=== PATIENT | male | born 1960 | race Caucasian/White ===

== ENCOUNTER → 2017-03-18 | Outpatient (CLI) | payer MEDICAID, SELFPAY | PROVIDERS: Visit Provider Family Medicine | DX: E11.9 Type 2 diabetes mellitus without complications (principal); I10 Essential (primary) hypertension; E78.5 Hyperlipidemia, unspecified | CPT/HCPCS: 36415; 80053; 80061; 83036 ==

== ENCOUNTER → 2017-07-14 08:04 | Outpatient (CLI) | payer MEDICAID, SELFPAY ==
[2017-07-14 12:47] LABS: Blood Urea Nitrogen 14 mg/dL (7-18); Creatinine,Serum 1.02 mg/dL (0.70-1.30); Estimated Glomerular Filt Rate 76 ml/min (>60); GFR (African American) 92 ML/MIN (>60)
== END ==
PROVIDERS: Visit Provider Otolaryngology
DX: R51 Headache (principal); J32.9 Chronic sinusitis, unspecified
CPT/HCPCS: 36415; 82565; 84520

== ENCOUNTER → 2017-07-15 12:40 | Outpatient (CLI) | payer MEDICAID, SELFPAY ==
--- NOTE | 2017-07-15 12:48 | CT_ITS ---
CT head/brain wo/w con HISTORY: Severe headache6 ITS.REASON: headache ORDERING PHYSICIAN: Ajay Bates MD PATIENT AGE: 56 years COMPARISON: TECHNIQUE: Axial images obtained without contrast. Brain and bone windows reviewed. All CT scans at the facility use one or more dose reduction, viz: automated exposure control; ma/kV adjustment per patient size (including targeted exams where dose is matched to indication; i.e. head); or iterative reconstruction technique. FINDINGS: No midline shift, mass effect, intracranial hemorrhage, hydrocephalus, or extra-axial fluid collection is evident. The calvarium has an unremarkable appearance. No mastoid effusion. No sinus air-fluid levels.. IMPRESSION: Negative CT head without contrast. No acute finding
--- NOTE | 2017-07-15 13:29 | HMH.ITSHM ---
LISINOPRIL,GLIMPERIDE,ATORVASTRATIN JENTAUDEO OMEPRAZOLE
== END ==
PROVIDERS: PCP Family Medicine; Visit Provider Otolaryngology
DX: R51 Headache (principal)
CPT/HCPCS: 70470; Q9967

== ENCOUNTER → 2017-08-18 07:18 | Outpatient (CLI) | payer MEDICAID, SELFPAY ==
[2017-08-18 08:36] LABS: Alanine Aminotransferase 61 U/L (12-78); Albumin Level 3.8 gm/dL (3.4-5.0); Albumin/Globulin Ratio 1.1 (1.1-1.8); Alkaline Phosphatase 75 U/L (46-116); Anion Gap 12.9 mEq/L (5-15); Aspartate Amino Transferase 30 U/L (15-37); Bilirubin,Total 0.3 mg/dL (0.2-1.0); Blood Urea Nitrogen 17 mg/dL (7-18); Calcium 9.4 mg/dL (8.5-10.1); Carbon Dioxide 27 mmol/L (21.0-32.0); Chloride 105 mmol/L (98-107); Chol/HDL Ratio 4.2 (1-3.5); Cholesterol 138 mg/dL (140-200); Creatinine,Serum 1.07 mg/dL (0.70-1.30); Estimated Glomerular Filt Rate 72 ml/min (>60); GFR (African American) 87 ML/MIN (>60); Globulin 3.5 gm/dl (1.3-3.2); Glucose 144 mg/dL (74-106); HDL Cholesterol 33 mg/dL (27-67); LDL Cholesterol 79 mg/dL (0-130); Potassium 4.9 mmoL/L (3.5-5.1); Sodium 140 mmol/L (136-145); Total Protein,Serum 7.3 gm/dL (6.4-8.2); Triglycerides 128 mg/dL (30-200); VLDL Cholesterol 26 mg/dL (0-40)
== END ==
PROVIDERS: Visit Provider Family Medicine
DX: I10 Essential (primary) hypertension (principal); E11.9 Type 2 diabetes mellitus without complications
CPT/HCPCS: 36415; 80053; 80061; 83036

== ENCOUNTER → 2017-09-24 10:48 | Outpatient (CLI) | payer MEDICAID, SELFPAY ==
[2017-09-24 11:07] LABS: Basophils # 0.1 K/mm3 (0-0.2); Basophils % 0.5 % (0.1-2.0); Eosinophils # 0.4 K/mm3 (0.0-0.4); Eosinophils % 2.6 % (0.1-12.0); Hematocrit 47.7 % (42.0-52.0); Hemoglobin 15.2 g/dL (14.1-18.0); Lymphocytes # 2.7 K/mm3 (0.7-4.5); Lymphocytes % 20.1 K/mm3 (10-50); Mean Corpuscular HGB Conc 31.8 g/dL (31.8-35.4); Mean Corpuscular Hemoglobin 27.3 pg (27.0-31.2); Mean Corpuscular Volume 85.7 fl (80-94); Mean Platelet Volume 7.6 fl (7.4-10.4); Monocytes # 0.8 K/mm3 (0.1-1.0); Neutrophils # 9.6 K/mm3 (1.8-7.8); Neutrophils % 70.8 % (37.0-80.0); Platelet Count 368 K/mm3 (142-424); Red Blood Count 5.56 M/mm3 (4.60-6.20); Red Cell Distribution Width 13.9 % (11.5-17.5); White Blood Count 13.6 K/mm3 (4.8-10.8)
[2017-09-24 13:15] LABS: Blood Urea Nitrogen 19 mg/dL (7-18); Calcium 9.5 mg/dL (8.5-10.1); Carbon Dioxide 23 mmol/L (21.0-32.0); Chloride 102 mmol/L (98-107); Creatinine,Serum 1.06 mg/dL (0.70-1.30); Estimated Glomerular Filt Rate 73 ml/min (>60); GFR (African American) 88 ML/MIN (>60); Glucose 191 mg/dL (74-106); Sodium 137 mmol/L (136-145)
== END ==
PROVIDERS: PCP Family Medicine; Visit Provider Surgery
DX: Z01.818 Encounter for other preprocedural examination (principal); R10.30 Lower abdominal pain, unspecified; K62.5 Hemorrhage of anus and rectum; Z86.010 Personal history of colon polyps
CPT/HCPCS: 36415; 80048; 85025

== ENCOUNTER → 2017-10-08 09:09 | Outpatient (CLI) | payer MEDICAID, SELFPAY ==
[2017-10-08 09:28] LABS: Blood Urea Nitrogen 16 mg/dL (7-18); Creatinine,Serum 1.13 mg/dL (0.70-1.30); Estimated Glomerular Filt Rate 67 ml/min (>60); GFR (African American) 81 ML/MIN (>60)
--- NOTE | 2017-10-08 09:49 | CT_ITS ---
CT abdomen pelvis w con CLINICAL INDICATION: Lower abdominal pain, history of diverticulitis ITS.REASON: lower abdomoinal pain ORDERING PHYSICIAN: Lex Chen MD PATIENT AGE: 57 years COMPARISON: 11/22/2016 TECHNIQUE: Axial images obtained with sagittal and coronal reformats. All CT scans at the facility use one or more dose reduction, viz: automated exposure control; ma/kV adjustment per patient size (including targeted exams where dose is matched to indication; i.e. head); or iterative reconstruction technique. PROCEDURE: Oral Contrast: Redicat IV Contrast: 75 mL's of Isovue-370. FINDINGS: Small hiatal hernia. The liver, spleen, adrenal glands, gallbladder, pancreas, and kidneys have an unremarkable appearance. Unremarkable appendix. No intestinal obstruction or free air. There is diverticulosis of the entire colon with greatest involvement in the distal descending colon and sigmoid colon. No evidence of diverticulitis. No pelvic mass abnormal fluid collection or focal inflammatory change. No abdominal wall hernias. No acute bony anomalies. IMPRESSION: 1. No acute abdominal or pelvic findings. 2. Diverticulosis coli. No evidence of diverticulitis
--- NOTE | 2017-10-08 10:42 | HMH.ITSHM ---
LISINOPRIL,ATORVASTATIN,GLIMIPERIDE,OMEPRAZOLE,JENTA
== END ==
PROVIDERS: PCP Family Medicine; Visit Provider Surgery
DX: Z01.818 Encounter for other preprocedural examination (principal); R10.30 Lower abdominal pain, unspecified
CPT/HCPCS: 36415; 74177; 82565; 84520; Q9967

== ENCOUNTER → 2018-10-07 14:31 | Outpatient (CLI) | payer MEDICAID, SELFPAY ==
[2018-10-07 14:34] LABS: Microscopic, Urine URINE MICROSCOPIC (MICROSCOPIC)
[2018-10-07 14:51] LABS: Basophils # 0.1 K/mm3 (0-0.2); Basophils % 0.6 % (0.1-2.0); Eosinophils # 0.3 K/mm3 (0.0-0.4); Eosinophils % 2.4 % (0.1-12.0); Hematocrit 43.1 % (42.0-52.0); Hemoglobin 13.3 g/dL (14.1-18.0); Lymphocytes # 3.3 K/mm3 (0.7-4.5); Lymphocytes % 25.3 % (10-50); Mean Corpuscular Hemoglobin 27.9 pg (27.0-31.2); Mean Corpuscular Volume 90.2 fl (80-94); Mean Platelet Volume 7.8 fl (7.4-10.4); Monocytes # 0.8 K/mm3 (0.1-1.0); Monocytes % 5.7 % (1.7-9.3); Neutrophils # 8.7 K/mm3 (1.8-7.8); Platelet Count 398 K/mm3 (142-424); Red Blood Count 4.77 M/mm3 (4.60-6.20); Red Cell Distribution Width 14.6 % (11.5-17.5); White Blood Count 13.2 K/mm3 (4.8-10.8)
[2018-10-07 14:55] LABS: Appearance,Urine CLEAR (Clear); Bilirubin,Urine Negative (Negative); Blood, Urine 2+ (Negative); Color,Urine YELLOW (Yellow); Glucose,Urine (UA) Negative (Negative); Ketones,Urine Negative (Negative); Leukocyte Esterase,Urine Negative (Negative); Nitrate,Urine Negative (Negative); Protein,Urine Negative (Negative); Specific Gravity, Urine 1.025 (1.005-1.030); Urobilinogen,Urine 0.2 EU/dl (0.2)
[2018-10-07 15:07] LABS: Bacteria,Urine Trace /lpf; Squamous Epithelial Cell,Urine Occasional #/hpf (0-5)
[2018-10-07 15:30] LABS: Alanine Aminotransferase 64 U/L (12-78); Albumin Level 3.9 gm/dL (3.4-5.0); Albumin/Globulin Ratio 1.1 (1.1-1.8); Alkaline Phosphatase 74 U/L (46-116); Anion Gap 16.3 mEq/L (5-15); Aspartate Amino Transferase 33 U/L (15-37); Bilirubin,Total 0.3 mg/dL (0.2-1.0); Blood Urea Nitrogen 42 mg/dL (7-18); Calcium 9.9 mg/dL (8.5-10.1); Carbon Dioxide 25 mmol/L (21.0-32.0); Chloride 105 mmol/L (98-107); Creatinine,Serum 1.78 mg/dL (0.70-1.30); Estimated Glomerular Filt Rate 40 ml/min (>60); GFR (African American) 48 ML/MIN (>60); Globulin 3.7 gm/dl (1.3-3.2); Glucose 77 mg/dL (74-106); Potassium 5.3 mmoL/L (3.5-5.1); Sodium 141 mmol/L (136-145); Total Protein,Serum 7.6 gm/dL (6.4-8.2)
== END ==
PROVIDERS: Visit Provider Surgery
DX: R10.9 Unspecified abdominal pain (principal)
CPT/HCPCS: 36415; 80053; 81001; 85025

== ENCOUNTER 2018-10-09 09:45 | Outpatient (CLI) | payer MEDICAID, SELFPAY ==
[2018-10-09 10:00] VITALS: BP 138/77; PULSE 88; RESP 18; O2SAT 95
[2018-10-09 11:11] VITALS: BP 121/86; PULSE 84; RESP 18; O2SAT 96
== END 2018-10-09 11:11 | disposition home or self-care (01) ==
LOC: INF 09:46
PROVIDERS: PCP Family Medicine; Visit Provider Surgery
DX: R79.89 Other specified abnormal findings of blood chemistry (principal)
CPT/HCPCS: 96360

== ENCOUNTER → 2018-10-12 07:48 | Outpatient (CLI) | payer MEDICAID, SELFPAY ==
[2018-10-12 08:07] LABS: Anion Gap 12.4 mEq/L (5-15); Blood Urea Nitrogen 19 mg/dL (7-18); Calcium 9.4 mg/dL (8.5-10.1); Carbon Dioxide 27 mmol/L (21.0-32.0); Chloride 101 mmol/L (98-107); Creatinine,Serum 1.29 mg/dL (0.70-1.30); Estimated Glomerular Filt Rate 57 ml/min (>60); GFR (African American) 69 ML/MIN (>60); Glucose 191 mg/dL (74-106); Potassium 4.4 mmoL/L (3.5-5.1); Sodium 136 mmol/L (136-145)
== END ==
PROVIDERS: Visit Provider Surgery
DX: Z87.19 Personal history of other diseases of the digestive system (principal)
CPT/HCPCS: 36415; 80048

== ENCOUNTER → 2018-10-23 09:28 | Outpatient (CLI) | payer MEDICAID, SELFPAY ==
--- NOTE | 2018-10-23 09:34 | CT_ITS ---
CT abdomen pelvis w con CLINICAL INDICATION: ITS.REASON: Abdominal pain ORDERING PHYSICIAN: Lex Chen MD PATIENT AGE: 58 years COMPARISON: None TECHNIQUE: Axial images obtained with sagittal and coronal reformats. All CT scans at the facility use one or more dose reduction, viz: automated exposure control, ma/kV adjustment per patient size (including targeted exams where dose is matched to indication, i.e. head), or iterative reconstruction technique. PROCEDURE: Oral Contrast: None IV Contrast: Yes . FINDINGS: Lower thorax: No acute finding ABDOMEN: Liver: No masses or biliary dilatation. Gallbladder: Nondistended. No radio opaque stones. Pancreas: No masses or peripancreatic fluid collections. Spleen: Unremarkable. Adrenals: Unremarkable Kidneys/ureters: No masses. No renal calculi. No hydronephrosis. No perinephric fluid collections. No ureteral dilatation or obvious ureteral calculi. Stomach bowel: Again seen are the diffuse colonic diverticula which are more numerous in the sigmoid area with generalized wall thickening of the entire sigmoid colon without definite pericolonic inflammation or fluid collection. Appendix: No evidence of appendicitis. PELVIS: Reproductive: Unremarkable Bladder: Nondistended. No obvious stones or masses. ABDOMEN & PELVIS: Peritoneum: No abnormal fluid collections. No obvious inflammatory changes. No free air. Lymph nodes: No enlarged lymph nodes apparent. Vasculature: No evidence of abdominal aortic aneurysm. No retroperitoneal hemorrhage evident. Bones: No acute fracture IMPRESSION: Colonic diverticulosis without acute inflammation. However there is some persistent sigmoid colon wall thickening which might suggest a low-grade underlying chronic diverticulitis.
== END ==
PROVIDERS: PCP Family Medicine; Visit Provider Surgery
DX: R10.9 Unspecified abdominal pain (principal); Z87.19 Personal history of other diseases of the digestive system
CPT/HCPCS: 74177; Q9967

== ENCOUNTER → 2018-11-20 07:14 | Outpatient (CLI) | payer MEDICAID, SELFPAY ==
[2018-11-20 07:42] LABS: Basophils # 0.1 K/mm3 (0-0.2); Basophils % 0.7 % (0.1-2.0); Eosinophils # 0.2 K/mm3 (0.0-0.4); Eosinophils % 2.7 % (0.1-12.0); Hematocrit 38.3 % (42.0-52.0); Hemoglobin 12.2 g/dL (14.1-18.0); Lymphocytes # 2.4 K/mm3 (0.7-4.5); Mean Corpuscular Volume 87.6 fl (80-94); Mean Platelet Volume 7.5 fl (7.4-10.4); Monocytes # 0.5 K/mm3 (0.1-1.0); Monocytes % 6.6 % (1.7-9.3); Neutrophils # 4.4 K/mm3 (1.8-7.8); Neutrophils % 58.1 % (37.0-80.0); Platelet Count 318 K/mm3 (142-424); Red Blood Count 4.37 M/mm3 (4.60-6.20); Red Cell Distribution Width 14.5 % (11.5-17.5); White Blood Count 7.5 K/mm3 (4.8-10.8)
[2018-11-20 08:02] LABS: Alanine Aminotransferase 66 U/L (12-78); Albumin Level 3.5 gm/dL (3.4-5.0); Alkaline Phosphatase 72 U/L (46-116); Aspartate Amino Transferase 35 U/L (15-37); Bilirubin,Total 0.3 mg/dL (0.2-1.0); Blood Urea Nitrogen 24 mg/dL (7-18); Carbon Dioxide 28 mmol/L (21.0-32.0); Chloride 100 mmol/L (98-107); Creatinine,Serum 1.54 mg/dL (0.70-1.30); Estimated Glomerular Filt Rate 47 ml/min (>60); GFR (African American) 57 ML/MIN (>60); Globulin 3.6 gm/dl (1.3-3.2); Glucose 237 mg/dL (74-106); Sodium 135 mmol/L (136-145); Total Protein,Serum 7.1 gm/dL (6.4-8.2)
== END ==
PROVIDERS: Visit Provider Surgery
DX: R10.9 Unspecified abdominal pain (principal)
CPT/HCPCS: 36415; 80053; 85025

== ENCOUNTER → 2018-11-23 07:43 | Outpatient (CLI) | payer MEDICAID, SELFPAY ==
--- NOTE | 2018-11-23 07:44 | US_ITS ---
PROCEDURE: US GALLBLADDER CLINICAL INDICATION: abdominal pain Right upper quadrant pain COMPARISON: ABDPELW CT abdomen pelvis w con from 10/23/2018 FINDINGS: Gallbladder: No shadowing stones apparent. Sludge is present within the gallbladder. No pericholecystic fluid or biliary dilatation. Common duct is 4 mm. Liver: Fatty liver. Diffuse increased echogenicity of the liver with poor through transmission of sound Pancreas: Unremarkable/Not well seen Right kidney: Unremarkable appearing. No hydronephrosis. IMPRESSION: No gallstones or ductal dilatation. There is a small amount of gallbladder sludge Dictated by: Jackson Sheridan MD 11/23/2018 09:36 Signed by: <Electronically signed by Jackson Sheridan MD in [facility]> 11/23/2018 09:36
== END ==
PROVIDERS: PCP Family Medicine; Visit Provider Surgery
DX: K82.9 Disease of gallbladder, unspecified (principal)
CPT/HCPCS: 76705

== ENCOUNTER → 2018-12-03 10:03 | Outpatient (CLI) | payer MEDICAID, SELFPAY ==
--- NOTE | 2018-12-03 10:04 | NM_ITS ---
PROCEDURE: NM HEPATOBILIARY W PHARM CLINICAL INDICATION: IF abnormal US Abdominal pain, right upper quadrant pain COMPARISON: US GALLBLADDER from 11/23/2018 TECHNIQUE: DOSE: 8.47 mCi technetium Choletec and 2 mcg of CCK. No pain with CCK infusion FINDINGS: Homogeneous activity is present within the hepatic parenchyma. Activity is present in the gallbladder by 10 minutes. Activity is present in the small bowel by 15 minutes. The gallbladder ejection fraction is calculated to be 94 percent. CCK-The patient did not report pain or other symptoms during CCK infusion. IMPRESSION: Unremarkable hepatobiliary scan and gallbladder ejection fraction. No evidence of common or cystic duct obstruction Dictated by: Jackson Sheridan MD 12/03/2018 19:06 Electronically signed by Jackson Sheridan MD in [facility] 12/03/2018 19:06
== END ==
PROVIDERS: PCP Family Medicine; Visit Provider Surgery
DX: R10.9 Unspecified abdominal pain (principal)
CPT/HCPCS: 78227; A9537; J2805

== ENCOUNTER → 2019-05-10 10:45 | Outpatient (CLI) | payer OTHER, SELFPAY ==
[2019-05-10 12:52] LABS: Blood Urea Nitrogen 19 mg/dL (7-18); Creatinine,Serum 1.26 mg/dL (0.70-1.30); Estimated Glomerular Filt Rate 59 ml/min (>60); GFR (African American) 71 ML/MIN (>60)
== END ==
PROVIDERS: Visit Provider Family Medicine
DX: G44.51 Hemicrania continua (principal)
CPT/HCPCS: 36415; 82565; 84520

== ENCOUNTER → 2019-05-13 09:33 | Outpatient (CLI) | payer OTHER, SELFPAY ==
--- NOTE | 2019-05-13 09:35 | MR_ITS ---
PROCEDURE: MR HEAD/BRAIN WO/W CON CLINICAL INDICATION: HEMICRANIA CONTINUA Headache on the right side. Constant pressure COMPARISON: HEADWW CT head/brain wo/w con from 07/15/2017 TECHNIQUE: Routine multiplanar multi echo sequences are performed without and with gadolinium enhancement. FINDINGS: No midline shift, mass effect, intracranial hemorrhage, or hydrocephalus is evident. The cerebellopontine angles, cerebellum, and brainstem have an unremarkable appearance. There is only minimal amount of increased T2 signal in the periventricular region of the left occipital lobe nonspecific. No enhancing lesions are evident. The pituitary, optic chiasm, corpus callosum, and craniocervical junction have an unremarkable appearance. No mastoid effusion or sinus air-fluid level. IMPRESSION: Essentially negative MRI of the brain without and with contrast Dictated by: Jackson Sheridan MD 05/14/2019 09:11 Electronically signed by Jackson Sheridan MD in [facility] 05/14/2019 09:11
== END ==
PROVIDERS: PCP Family Medicine; Visit Provider Family Medicine
DX: G44.51 Hemicrania continua (principal)
CPT/HCPCS: 70553; A9576

== ENCOUNTER → 2019-05-28 08:23 | Outpatient (CLI) | payer OTHER, SELFPAY ==
--- NOTE | 2019-05-28 08:28 | XR_ITS ---
PROCEDURE: XR CERVICAL SPINE W FLEX/EXT CLINICAL INDICATION: cervical pain Neck pain with constant headache COMPARISON: No exams were available for comparison FINDINGS: Eight views are obtained including flexion-extension. In the neutral position there is normal alignment with mild degenerative disc disease at C5-C6. There is right-sided foraminal narrowing at C6-C7 from uncovertebral hypertrophy no fracture or dislocation. No lytic or blastic change. Carotid artery calcifications are present bilaterally. Flexion and extension views show no abnormal subluxation. IMPRESSION: Degenerative disc disease. No abnormal subluxation in flexion or extension. Foraminal narrowing on the right at C6-C7 Carotid artery disease Dictated by: Jackson Sheridan MD 05/28/2019 13:09 Electronically signed by Jackson Sheridan MD in [facility] 05/28/2019 13:09
[2019-05-28 10:15] LABS: Erythrocyte Sedimentation Rate 34 mm/hr (0-20)
== END ==
PROVIDERS: PCP Family Medicine; Visit Provider Nurse Practitioner Family
DX: M54.2 Cervicalgia (principal); M62.838 Other muscle spasm; R51 Headache; G47.33 Obstructive sleep apnea (adult) (pediatric)
CPT/HCPCS: 36415; 72052; 85651

== ENCOUNTER → 2019-06-15 09:43 | Outpatient (CLI) | payer OTHER, SELFPAY ==
--- NOTE | 2019-06-15 09:44 | MR_ITS ---
PROCEDURE: MR CERVICAL SPINE WO CON CLINICAL INDICATION: cervical pain Neck pain, cervical spondylosis COMPARISON: XR CERVICAL SPINE W FLEX/EXT from 05/28/2019 TECHNIQUE: Standard multiplanar multiecho sequences are performed without contrast. 3-D MIP and myelographic images are also rendered and reviewed FINDINGS: There is normal alignment. The cranial cervical junction has an unremarkable appearance. C2-C3, C3-C4, and C4-C5 have an unremarkable appearance. C5-C6: There is degenerative disc disease with a broad-based left paracentral and foraminal disc protrusion/herniation causing some mild impingement upon the anterior and left aspect of the cord and causing left lateral recess and foraminal narrowing. C6-C7: Degenerate disc disease with mild bulging disc. The bulging disc is slightly eccentric toward the right with narrowing of the right C6-C7 foramen. C7-T1: Unremarkable. IMPRESSION: 1. C5-C6: There is degenerative disc disease with a broad-based left paracentral and foraminal disc protrusion/herniation causing some mild impingement upon the anterior and left aspect of the cord and causing left lateral recess and foraminal narrowing. 2. C6-C7: Degenerate disc disease with mild bulging disc. The bulging disc is slightly eccentric toward the right with narrowing of the right C6-C7 foramen. Dictated by: Jackson Sheridan MD 06/16/2019 07:40 Electronically signed by Jackson Sheridan MD in [facility] 06/16/2019 07:40
--- NOTE | 2019-06-15 10:37 | CA_ITS ---
APPROVED REPORT Tubular Riveter: Sri Hong RT(R) Laterality: Bilateral Indications: abn XR Cspine-Carotid artery calcification-bilat Risk Factors Hypertension: Diabetes Doppler Spectral Velocity Analysis ECA (R) 141.10/23.50 cm/s ECA (L) 96.80/12.90 cm/s dICA (R) 112.30/44.90 cm/s dICA (L) 108.80/41.10 cm/s Victoria (R) 114.40/33.10 cm/s Victoria (L) 96.80/36.00 cm/s pICA (R) 45.30/14.50 cm/s pICA (L) 61.00/23.80 cm/s dCCA (R) 66.70/21.80 cm/s dCCA (L) 73.80/26.30 cm/s pCCA (R) 108.80/30.80 cm/s pCCA (L) 126.20/21.40 cm/s Vert (R) 53.50/23.50 cm/s Vert (L) 34.30/13.50 cm/s ICA/CCA 1.71 ICA/CCA 1.47 Conclusion Duplex evaluation demonstrates stenosis of the right proximal internal carotid artery in the range of 20-49% with PSV <140 cm/sec, EDV <100 cm/sec, and IC/CC Ratio <4.0.Duplex evaluation demonstrates stenosis of the left proximal internal carotid artery <20% with PSV <140 cm/sec, EDV <100 cm/sec, and IC/CC Ratio <4.0. Electronically signed by : Jackson Sheridan MD 06/15/2019 17:27:40
== END ==
PROVIDERS: PCP Family Medicine; Visit Provider Specialist
DX: M54.2 Cervicalgia (principal); M62.838 Other muscle spasm; I65.23 Occlusion and stenosis of bilateral carotid arteries; R51 Headache; G47.33 Obstructive sleep apnea (adult) (pediatric)
CPT/HCPCS: 72141; 76376; 93880

== ENCOUNTER → 2019-11-15 07:14 | Outpatient (CLI) | payer OTHER, SELFPAY ==
--- NOTE | 2019-11-15 | CA_ITS ---
APPROVED REPORT Exam: Exercise Treadmill Technologist: Karli Taylor Ht: 5 ft 10 in Wt: 220 lbs BSA: 2.17 m2 HR: 85 bpm BP: 106/74 mmHg Indications: Precordial chest pain, High Risk Cardiac Event Medical History Medications: Lisinopril,,,,, Omeprazole,,,,, Metformin,,,,, Atorvastatin,,,,, Glimepiride,,,,, TopIRAMATE,,,,, AmiTRIPTYLINE,,,,, Sitagliptin,,,,, Stress Test Details Test: Yi HR Resting HR: 97 bpm Max Heart Rate (APMHR): 162 bpm Max HR Achieved: 156 bpm Target HR (85% APMHR): 137 bpm % of APMHR: 96 Recovery HR: 103 bpm BP Resting BP: 106.0/74.0 mmHg Max BP: 162.0/78.0 mmHg Recovery BP: 135.0/78.0 mmHg ECG Clinical Reason for Termination: Chest pain Exercise duration: 05:00 min Highest Stage Achieved: Exercise capacity: 7.0 METs Stress ECG Conclusion Resting ECG: Normal sinus rhythm. Symptoms: Chest cramp Arrhythmias/Ectopy: None ST-T Changes: None Conclusion: Positive stress test. Patient exercised on a yi protocol for 5 minutes to peak heart rate of 156 beats per minute ( target heart rate 138 bpm) without arrhythmias or ST segment changes. He developed chest cramp sensation that resolved in recovery. Total METS acheived 7.0 with peak blood pressure of 162/78 mm Hg. See the nuclear report for further information. Test Summary REST . . . . . . . Sitting REST . . . . . . . Standing REST 05:53 0.0 0.0 97 . 106/ 74 . . Stage 1 01:00 10.0 1.7 118 . . . . Stage 1 02:00 10.0 1.7 127 . . . . Stage 1 03:00 10.0 1.7 131 . 150/ 82 . . Stage 2 . . . . . . . Chest pain Stage 2 01:00 12.0 2.5 140 . . . . Stage 2 . . . . . . . Myoview Injected Stage 2 02:00 12.0 2.5 156 . . . Stop exercise at 05:00 RECOVERY 01:00 0.0 0.0 135 . . . . RECOVERY 02:00 0.0 0.0 109 . 162/ 78 . . RECOVERY 03:00 0.0 0.0 105 . 162/ 78 . . RECOVERY 04:00 0.0 0.0 100 . 162/ 78 . . RECOVERY 05:00 0.0 0.0 101 . 135/ 78 . . RECOVERY 05:14 0.0 0.0 100 . 135/ 78 . . Electronically signed by : Tavares Reina, 11/15/2019 21:44:48
--- NOTE | 2019-11-15 07:17 | NM_ITS ---
APPROVED REPORT Exam: Nuclear Stress Test Indication: SOB, DM, High cholesterol, Former tobacco use, Family history Patient Location: Outpatient Stress Tech: Karli Taylor [place] Tech:Sulema Mixon, ARRT, RT (R)(N) Ht: 5 ft 10 in Wt: 220 lbs HR: 85 bpm BP: 106/74 mmHg BSA: 2.17 m2 BMI: 31.5 History: SOB, DM, High cholesterol, Former tobacco use, Family history Procedure: Patient exercised on Dannie protocol 5:00 minutes and sec, resting heart rate 85 bpm, resting blood pressure 106/74 mmHg, with exercise maximum heart rate achived was 156 bpm which is Greater than 85 % of the maximum predicted heart rate and blood pressure was 150/82 mmHg. Test was stopped due to Hip pain, chest cramps. Patient has Adequate exercise capacity, achieved 7.0 METs of workload on treadmill, the blood pressure response to exercise was Adequate. Electrocardiogram Resting electrocardiogram showed sinus rhythm, with exercise there is less than 1.[address] segment depression noted from the baseline EKG. The EKG portion of the exercise Myoview is negative for ischemia. Cardiac Stress and Resting SPECT Images: Cardiac Stress and Resting SPECT images were obtained using technetium 99m Myoview 32.3 mCi stress and 10.68 mCi at rest. Gated SPECT with analysis of segmental wall motion and calculation of the ejection fraction also done. Cardiac stress and rest SPECT images show uniform myocardial activity without segmental perfusion abnormality, computer derived ejection fraction is over 65% with no regional wall motion abnormality, right ventricle is normal size and contractility. Conclusion: 1. The EKG portion of the exercise Myoview is negative for ischemia, patient has adequate exercise capacity achieved 7 mets of workload on treadmill, the blood pressure response to exercise was adequate, patient complained of atypical chest pain described as cramping in the chest. 2. No scintigraphic evidence of reversible ischemia seen at this level of exercise, computer derived ejection fraction is over 65% with no regional wall motion abnormality, right ventricle is normal size and contractility. Electronically signed by : Tavares Reina, 11/15/2019 21:47:15
--- NOTE | 2019-11-15 08:51 | HMH.ITSHM ---
Current Home Medications as stated by this patient Ramana Smith or quality assurance representative. []LISINOPRIL GLIMEPIRIDE METFOMRIN ATORVASTATIN JANUVIA
== END ==
PROVIDERS: PCP Family Medicine; Visit Provider Family Medicine
DX: R07.2 Precordial pain (principal); Z91.89 Other specified personal risk factors, not elsewhere classified
CPT/HCPCS: 78452; 93017; A9502

== ENCOUNTER 2020-01-14 06:42 | Emergency (ER) | payer OTHER, SELFPAY ==
[2020-01-14 06:43] VITALS: BP 150/95; PULSE 121; RESP 16; TEMP 36.8; O2SAT 100; BMI 33.0
--- NOTE | 2020-01-14 07:13 | HMH.EDEPIS ---
ED Disposition Clinical Impression: Epistaxis Disposition: Home, Self-Care Condition on Discharge: Good Instructions: DI for Nosebleed Additional Instructions: may remove epistat in am and see dr tello friday Referrals: Jose R Tellez MD [Primary Care Provider] - - Critical Care Critical Care Time: No Attestation: On 01/14/20, the high probability of a clinically significant, sudden or life threatening deterioration of the following system(s) required my full and direct attention, intervention and personal management. The time I documented below is in addition to time spent performing reported procedures but includes the following listed in this critical care notation. Medical Decision Making - Medical Records Medical records reviewed: Yes: I reviewed the patient's medical records. - Reji Inquiry Pt receiving controlled substance: No Vital Signs: 01/14/20 06:43 Temperature 98.3 F Temperature Source Oral Pulse Rate [Left Radial] 121 H Respiratory Rate 16 Blood Pressure [Right Arm] 150/95 H Blood Pressure Mean [Right Arm] 113 Blood Pressure Source [Right Arm] Automatic Cuff Blood Pressure Position [Right Arm] Sitting 02 Sat by Pulse Oximetry 100 Oxygen Delivery Method Room Air - Lab Data Lab results reviewed: Yes: I reviewed the patient's lab results. Lab Results 01/14/20 07:20: WBC 11.8 H, RBC 4.98, Hgb 13.5 L, Hct 42.2, MCV 84.8, MCH 27.0, MCHC 31.8, RDW 14.7, Plt Count 359, MPV 7.6, Neut % (Auto) 66.4, Lymph % (Auto) 23.9, Logan % (Auto) 5.7, Eos % (Auto) 3.4, Baso % (Auto) 0.6, Neut # (Auto) 7.8, Lymph # (Auto) 2.8, Logan # (Auto) 0.7, Eos # (Auto) 0.4, Baso # (Auto) 0.1 01/14/20 07:20: Sodium 139, Potassium 4.4, Chloride 102, Carbon Dioxide 25, Anion Gap 16.4 H, BUN 17, Creatinine 1.10, Estimated Creat Clear 108, Estimated GFR 69, Est GFR ( Amer) 83, Glucose 254 H, Calcium 9.7 Result diagrams: 01/14/20 07:20 01/14/20 07:20 Orders (Tests/Meds): ED MEDICATIONS Discontinued Medications Generic Name Dose Route Start Last Admin Trade Name Juan Manuel PRN Reason Stop Dose Admin Cocaine HCl 4 ml 01/14/20 07:35 01/14/20 07:45 Cocaine 4% Topical Soln 4ml Bottle TP 01/14/20 07:36 4 ml ONCE ONE Administration Cocaine HCl 4 ml 01/14/20 07:39 01/14/20 07:45 Cocaine 4% Topical Soln 4ml Bottle TP 01/14/20 07:40 4 ml ONCE ONE Administration Morphine Sulfate 2 mg 01/14/20 07:31 01/14/20 07:34 Morphine 2mg/Ml Syringe IV 01/14/20 07:32 2 mg ONCE ONE Administration Ondansetron HCl 8 mg 01/14/20 06:56 01/14/20 06:58 Ondansetron 4mg Odt SL 01/14/20 06:57 8 mg ONCE ONE Administration Ondansetron HCl 4 mg 01/14/20 07:31 01/14/20 07:33 Ondansetron 4mg/2ml Vial IV 01/14/20 07:32 4 mg ONCE ONE Administration Oxymetazoline HCl 1 ml 01/14/20 06:56 01/14/20 06:58 Oxymetazoline Nasal Chauvin 0.05% 15ml NS 01/14/20 06:57 2 spr ONCE ONE Administration Epistaxis HPI - General Chief complaint: Epistaxis Stated complaint: nose bleed Time Seen by Provider: 01/14/20 07:00 Mode of Arrival: Ambulatory Source of Information: Patient, Spouse, Medical Record Limitations: No Limitations Description of Symptoms (Recalled from ER Triage Doc. by RN): pt c/o of a nose bleed for the last 45 minutes without relief - History of Present Illness HPI Narrative: acute nosebleed over the last hr - no anticoag and no trauma MD complaint: epistaxis Location: bilateral nostril Onset (ago): hour(s) Context: history of previous Treatment prior to arrival: nose pinching - Related Data Home Medications Medication Instructions Recorded Confirmed atorvastatin 40 mg tablet 40 mg PO DAILY 30 Days #30 06/23/17 01/12/20 glimepiride 4 mg tablet 4 mg PO BID 30 Days #60 06/23/17 01/12/20 lisinopril 20 mg tablet 20 mg PO BID 30 Days #30 06/23/17 01/12/20 metformin 500 mg tablet 500 mg PO tab 05/25/19 01/12/20 sitagliptin 100 mg tablet 100 mg PO
[2020-01-14 07:33] LABS: Chloride 102 mmol/L (98-107); Potassium 4.4 mmoL/L (3.5-5.1); Sodium 139 mmol/L (136-145)
[2020-01-14 07:34] LABS: Basophils # 0.1 K/mm3 (0-0.2); Basophils % 0.6 % (0.1-2.0); Eosinophils # 0.4 K/mm3 (0.0-0.4); Eosinophils % 3.4 % (0.1-12.0); Hematocrit 42.2 % (42.0-52.0); Hemoglobin 13.5 g/dL (14.1-18.0); Lymphocytes # 2.8 K/mm3 (0.7-4.5); Lymphocytes % 23.9 % (10-50); Mean Corpuscular HGB Conc 31.8 g/dL (31.8-35.4); Mean Corpuscular Volume 84.8 fl (80-94); Mean Platelet Volume 7.6 fl (7.4-10.4); Monocytes # 0.7 K/mm3 (0.1-1.0); Monocytes % 5.7 % (1.7-9.3); Neutrophils # 7.8 K/mm3 (1.8-7.8); Neutrophils % 66.4 % (37.0-80.0); Platelet Count 359 K/mm3 (142-424); Red Blood Count 4.98 M/mm3 (4.60-6.20); Red Cell Distribution Width 14.7 % (11.5-17.5); White Blood Count 11.8 K/mm3 (4.8-10.8)
[2020-01-14 07:36] LABS: Anion Gap 16.4 mEq/L (5-15); Blood Urea Nitrogen 17 mg/dl (9-20); Carbon Dioxide 25 mmol/L (22.0-30.0); Creatinine Clearance Estimated 108 mL/min (50-200); Estimated Glomerular Filt Rate 69 ml/min (>60); GFR (African American) 83 ML/MIN (>60)
[2020-01-14 07:37] LABS: Calcium 9.7 mg/dl (8.4-10.2); Glucose 254 mg/dl (74-100)
[2020-01-14 08:00] VITALS: BP 140/100; PULSE 78; RESP 16; TEMP 36.6; O2SAT 98
== END 2020-01-14 08:01 | disposition home or self-care (01) ==
PROVIDERS: Emergency Provider Emergency Medicine; PCP Family Medicine
DX: R04.0 Epistaxis (principal); R73.9 Hyperglycemia, unspecified; K21.9 Gastro-esophageal reflux disease without esophagitis; E78.5 Hyperlipidemia, unspecified; I10 Essential (primary) hypertension; Z87.442 Personal history of urinary calculi; Z87.891 Personal history of nicotine dependence; Z79.899 Other long term (current) drug therapy
CPT/HCPCS: 30901; 80048; 85025; 96374; 96375; 99282; J2405

== ENCOUNTER 2020-01-14 09:10 | Emergency (ER) | payer OTHER, SELFPAY ==
[2020-01-14 09:11] VITALS: BP 159/88; PULSE 125; RESP 22; TEMP 36.6; O2SAT 96; BMI 33.0
[2020-01-14 09:29] VITALS: BP 162/112; PULSE 115; RESP 20; O2SAT 94
--- NOTE | 2020-01-14 09:31 | HMH.EDEPIS ---
ED Disposition Clinical Impression: Epistaxis Disposition: Home, Self-Care Condition on Discharge: Fair Instructions: DI for Nosebleed Additional Instructions: You were observed for about an hour and nose was not bleeding anymore; We feel that you are stable and want to return home; You are welcome to return in case of any concerns; Please use Afrin already prescribed earlier by Dr. Wheatley as needed Referrals: Jose R Tellez MD [Primary Care Provider] - Time of Disposition: 10:10 - Critical Care Critical Care Time: No Attestation: On 01/14/20, the high probability of a clinically significant, sudden or life threatening deterioration of the following system(s) required my full and direct attention, intervention and personal management. The time I documented below is in addition to time spent performing reported procedures but includes the following listed in this critical care notation. Medical Decision Making - Medical Records Medical records reviewed: Yes: I reviewed the patient's medical records. MR Comment: Pt was here earlier this am for a nose bleed that began at 530 this am, smart balloon was inserted to the left nare and stopped the bleeding, pt states about 45mins ago he began to vomit and that may have loosened the smart balloon and it started to bleed again. Was observed for about an hour and it was not bleeding anymore and he has decided that he is stable and wants to return home; advised him that he is welcome to return in case of any concerns; He has of Afrin already prescribed earlier by Dr. Wheatley - Reji Inquiry Pt receiving controlled substance: No Vital Signs: 01/14/20 09:11 01/14/20 09:29 Temperature 97.8 F Temperature Source Temporal Artery Scan Pulse Rate [Right] 125 H 115 H Respiratory Rate 22 20 Blood Pressure [Right Arm] 159/88 H 162/112 H Blood Pressure Mean [Right Arm] 111 128 Blood Pressure Source [Right Arm] Automatic Cuff Blood Pressure Position [Right Arm] Sitting 02 Sat by Pulse Oximetry 96 94 L Epistaxis HPI - General Chief complaint: Epistaxis Stated complaint: nose bleed Time Seen by Provider: 01/14/20 09:25 Mode of Arrival: Ambulatory Limitations: No Limitations Description of Symptoms (Recalled from ER Triage Doc. by RN): Pt here earlier this am for a nose bleed that began at 530 this am, smart balloon was inserted to the left nare and stopped the bleeding, pt states about 45mins ago he began to vomit and it started to bleed again. - History of Present Illness HPI Narrative: Pt was here earlier this am for a nose bleed that began at 530 this am, smart balloon was inserted to the left nare and stopped the bleeding, pt states about 45mins ago he began to vomit and that may have loosened the smart balloon and it started to bleed again. MD complaint: epistaxis Location: left nostril Onset (ago): minute(s) Duration: intermittent Context: history of previous Treatment prior to arrival: nose pinching - Related Data Home Medications Medication Instructions Recorded Confirmed atorvastatin 40 mg tablet 40 mg PO DAILY 30 Days #30 06/23/17 01/12/20 glimepiride 4 mg tablet 4 mg PO BID 30 Days #60 06/23/17 01/12/20 lisinopril 20 mg tablet 20 mg PO BID 30 Days #30 06/23/17 01/12/20 metformin 500 mg tablet 500 mg PO tab 05/25/19 01/12/20 sitagliptin 100 mg tablet 100 mg PO tab 05/25/19 01/12/20 Allergies Allergy/AdvReac Type Severity Reaction Status Date / Time banana Allergy Intermediate Verified 01/12/20 13:00 [facility] History - Hepatitis A Screen Drug use history?: No High risk sexual behaviors?: No History of sexually transmitted infection?: No Currently employed?: No Childcare worker?: No Do you have indoor plumbing?: Yes Do you have electricity?: Yes Attestation statement:: This patient has been screened for Hepatitis A risk factors. Medical History: Reports:: Diabetes Mellitus Type 1, Diabetes Mellitus Type 2, Gastroesophageal Refl
--- NOTE | 2020-01-14 09:36 | PC.NURSE ---
Pt nose has stopped bleeding, stated he wished to keep the smart bulb in for now and watch the patient.
[2020-01-14 10:16] VITALS: BP 152/87; PULSE 85; RESP 17; TEMP 36.7; O2SAT 95
== END 2020-01-14 10:18 | disposition home or self-care (01) ==
PROVIDERS: Emergency Provider Emergency Medicine; PCP Family Medicine
DX: R04.0 Epistaxis (principal); E11.65 Type 2 diabetes mellitus with hyperglycemia; K21.9 Gastro-esophageal reflux disease without esophagitis; E78.5 Hyperlipidemia, unspecified; I10 Essential (primary) hypertension; Z87.891 Personal history of nicotine dependence; Z87.442 Personal history of urinary calculi
CPT/HCPCS: 99282

== ENCOUNTER → 2020-02-07 09:19 | Outpatient (CLI) | payer OTHER, SELFPAY ==
[2020-02-07 11:13] LABS: Coronavirus 19 IgG Antibody Negative (Negative); Coronavirus 19 IgM Antibody Negative (Negative)
== END ==
PROVIDERS: Visit Provider Surgery
DX: Z01.818 Encounter for other preprocedural examination (principal); Z12.11 Encounter for screening for malignant neoplasm of colon
CPT/HCPCS: 36415; 86328

== ENCOUNTER 2020-02-10 06:20 | Day surgery (SDC) | payer OTHER, SELFPAY ==
[2020-02-10 06:37] VITALS: BMI 31.5
[2020-02-10 06:38] VITALS: BP 128/76; PULSE 102; RESP 20; TEMP 36.3; O2SAT 97
[2020-02-10 06:49] LABS: POC Glucose,Bedside 147 (70-110)
[2020-02-10 07:28] VITALS: O2SAT 97
[2020-02-10 07:50] VITALS: BP 79/49; PULSE 105; RESP 18; TEMP 36.6; O2SAT 86
--- NOTE | 2020-02-10 07:54 | HMH.SCOPE ---
- Procedure: Date: 02/10/20 Patient Date of :: 1960 Procedure Performed:: Colonoscopy Indications:: History of colon polyps Diverticulosis Hemorrhoidal cushions Performing Provider:: Lex Chen MD Referring Provider:: . Sedation:: Monitored anesthesia care Procedure:: After informed consent was obtained the patient was taken to the endoscopy suite. Sedation ensued after the patient was transferred to the left lateral decubitus position. Pulse, blood pressure, and oxygen saturation were monitored throughout the procedure. Digital rectal exam revealed no significant abnormality. The colonoscope was placed in position. The entire colon was evaluated. The colonoscope was carefully removed and the patient was transferred to recovery in stable condition. Please see findings and specimens below for detail. Findings:: Slightly enlarged prostate with no dominant mass lesion Bowel preparation moderate Scattered diverticulosis (worse in sigmoid) Fairly significant sigmoid spasticity Specimens:: None Recommendations:: Repeat colonoscopy in 3-5 years secondary to history of significant polyps and moderate bowel preparation. Complications:: No immediate Estimated blood obtained (mL): 0
--- NOTE | 2020-02-10 07:58 | P.PN_ITS ---
[facility] Anesthesia Checklist - Structural Data Admitted From: Home Planned Operative Procedure/s: colonoscopy Consent for Planned Operative Procedure(s) Verified: Yes - Additional verifications Anesthesia Reactions: No Hx Blood Transfusions: No Blood Transfusion Reaction: No - Airway Assessment C-Spine Mobility Assessed: Yes TMJ Mobility Assessed: Yes Dentition: Good Dentition - Neurological Assessment Level of Consciousness: Awake, Alert, Appropriate - Anesthesia Plan Anesthesia Risk discussed: Yes Anesthesia Plan: Verified ASA Class: II Anesthesia Type: MAC [facility] History I have reviewed the patient's past medical history: Yes Medical History: Reports:: Diabetes Mellitus Type 2, Gastroesophageal Reflux Disease(GERD), Hyperlipidemia, Hypertension, Kidney Stones, MRSA (nose) Denies:: Cancer, Diabetes Mellitus Type 1, Internal Pacemaker, Lung Disease, Seizures *Have you ever received a pneumonia vaccine?: No *Have you received a flu vaccine this season?: No Other Medical History: Denies: Blood Transfusion Reaction Anesthesia experience/problems:: none Laterality Cases: Bilateral: Other Other Surgeries: Yes: No Previous Surgery, Cholecystectomy, Colonoscopy, Other. No: Pacemaker Amputation: No Fractures: No - *Social History Last grade of school completed: High school graduate Smoking Status: Never smoker #Yrs smoked (if former smoker): 40 Alcohol Intake: never Alcohol Intake Frequency:: other Substance Use Type: denies use *Occupational Status:: employed Housing: house Household Members: significant other *Travel in the last 8 weeks: None Family Hx:: Diabetes, Heart Attack
[2020-02-10 08:00] VITALS: BP 76/48; PULSE 96; RESP 18; O2SAT 94
[2020-02-10 08:10] VITALS: BP 96/41; PULSE 103; RESP 18; O2SAT 92
[2020-02-10 08:23] VITALS: BP 102/58; PULSE 96; RESP 18; O2SAT 95
== END 2020-02-10 08:25 | disposition home or self-care (01) ==
LOC: OUTP 06:20
PROVIDERS: PCP Family Medicine; Visit Provider Surgery
PROC: 0DJD8ZZ Inspection of Lower Intestinal Tract, Via Natural or Artificial Opening Endoscopic (ICD-10-PCS; CPT 45378; principal; 2020-02-10 07:30)
DX: Z12.11 Encounter for screening for malignant neoplasm of colon (principal); K58.9 Irritable bowel syndrome, unspecified; K57.30 Diverticulosis of large intestine without perforation or abscess without bleeding; Z86.010 Personal history of colon polyps
CPT/HCPCS: 45378; 82962

== ENCOUNTER → 2020-11-17 11:34 | Outpatient (CLI) | payer OTHER, SELFPAY ==
[2020-11-17 12:53] LABS: Basophils # 0.1 K/mm3 (0-0.2); Basophils % 0.9 % (0.1-2.0); Eosinophils # 0.8 K/mm3 (0.0-0.4); Eosinophils % 6.1 % (0.1-12.0); Hematocrit 42.6 % (42.0-52.0); Hemoglobin 13.9 g/dL (14.1-18.0); Lymphocytes # 2.9 K/mm3 (0.7-4.5); Lymphocytes % 21.9 % (10-50); Mean Corpuscular HGB Conc 32.8 g/dL (31.8-35.4); Mean Corpuscular Hemoglobin 25.7 pg (27.0-31.2); Mean Corpuscular Volume 78.4 fl (80-94); Mean Platelet Volume 8.2 fl (7.4-10.4); Monocytes # 0.7 K/mm3 (0.1-1.0); Monocytes % 5.5 % (1.7-9.3); Neutrophils # 8.7 K/mm3 (1.8-7.8); Neutrophils % 65.6 % (37.0-80.0); Platelet Count 356 K/mm3 (142-424); Red Blood Count 5.42 M/mm3 (4.60-6.20); Red Cell Distribution Width 16.3 % (11.5-17.5); White Blood Count 13.3 K/mm3 (4.8-10.8)
== END ==
PROVIDERS: PCP Physician Assistant; Referring Provider Physician Assistant; Visit Provider Physician Assistant
DX: Z20.822 Contact with and (suspected) exposure to COVID-19 (principal)
CPT/HCPCS: 36415; 85025; U0003

== ENCOUNTER 2020-12-09 21:46 | Emergency (ER) | payer OTHER, SELFPAY ==
[2020-12-09 21:47] VITALS: BP 152/87; PULSE 105; RESP 18; TEMP 36.8; O2SAT 96; BMI 31.5
[2020-12-09 22:13] VITALS: BP 152/87; PULSE 105; RESP 18; TEMP 36.8; O2SAT 96
== END 2020-12-09 22:14 | disposition left against medical advice (07) ==
LOC: ER 21:59
PROVIDERS: Emergency Provider Emergency Medicine; PCP Physician Assistant
DX: Z53.21 Procedure and treatment not carried out due to patient leaving prior to being seen by health care provider (principal)
CPT/HCPCS: 99211

== ENCOUNTER 2020-12-10 07:58 | Emergency (ER) | payer OTHER, SELFPAY ==
[2020-12-10 07:59] VITALS: BP 117/87; PULSE 109; RESP 20; TEMP 36.4; O2SAT 93; BMI 31.5
--- NOTE | 2020-12-10 08:02 | HMH.EDGENADL ---
ED Disposition Clinical Impression: Epistaxis Disposition: Home, Self-Care Condition on Discharge: Good Instructions: DI for Nosebleed Additional Instructions: Additional instructions for NOSE BLEED: Leave the balloon in place until you see the ENT doctor. Avoid blowing your nose, bending forward at the waist, or straining. Avoid all bloodthinners for 2 days, including aspirin. If nosebleed starts again, squeeze your nostrils together with thumb and forefinger for 5 minutes. If unable to stop the bleeding, return to the emergency department. Call Dr. Bates (ENT) to schedule an appointment to be seen within 2-3 days. Referrals: Jose R Tellez MD [Primary Care Provider] - Ajay Bates MD [Staff Physician] - - Critical Care Critical Care Time: No Attestation: On , the high probability of a clinically significant, sudden or life threatening deterioration of the following system(s) required my full and direct attention, intervention and personal management. The time I documented below is in addition to time spent performing reported procedures but includes the following listed in this critical care notation. Medical Decision Making - Reji Inquiry Pt receiving controlled substance: No Vital Signs: 12/10/20 07:59 12/10/20 09:02 Temperature 97.5 F L 98.3 F Temperature Source Oral Pulse Rate 78 Pulse Rate [Left Radial] 109 H Respiratory Rate 20 16 Blood Pressure 121/79 Blood Pressure [Right Arm] 117/87 Blood Pressure Mean [Right Arm] 97 Blood Pressure Source [Right Arm] Automatic Cuff Blood Pressure Position [Right Arm] Sitting 02 Sat by Pulse Oximetry 93 L Oxygen Delivery Method Room Air - Reevaluation(s) Time: 08:47 Reevaluation #1: no bleeding General Adult HPI - General Stated complaint: bloody nose Time Seen by Provider: 12/10/20 08:03 - History of Present Illness HPI narrative: He has a nosebleed that started yesterday. He came to the emergency department last night with a nosebleed however he stopped. He returned overnight. Predominantly bleeding from the right side. History of prior nosebleeds and he does not have a nasal septum. He says he typically has to get a balloon in both nares when he has a nosebleed. He has seen Dr. Bates in the past for nosebleeds. He has treated this bleed at home with ice packs to the back of his neck, pinching his nose, and tilting his head back. - Related Data Home Medications Medication Instructions Recorded Confirmed atorvastatin 40 mg tablet 40 mg PO DAILY 30 Days #30 06/23/17 02/10/20 glimepiride 4 mg tablet 4 mg PO BID 30 Days #60 06/23/17 02/10/20 lisinopril 20 mg tablet 20 mg PO BID 30 Days #30 06/23/17 02/10/20 metformin 500 mg tablet 500 mg PO DAILY tab 05/25/19 02/10/20 sitagliptin 100 mg tablet 100 mg PO DAILY tab 05/25/19 02/10/20 Allergies Allergy/AdvReac Type Severity Reaction Status Date / Time banana Allergy Intermediate Verified 01/12/20 13:00 [facility] History - Hepatitis A Screen Attestation statement:: This patient has been screened for Hepatitis A risk factors. I have reviewed the patient's past medical history: Yes Medical History: Reports:: Diabetes Mellitus Type 2, Gastroesophageal Reflux Disease(GERD), Hyperlipidemia, Hypertension, Kidney Stones, MRSA (nose) Denies:: Cancer, Diabetes Mellitus Type 1, Internal Pacemaker, Lung Disease, Seizures Other Medical History: Denies: Blood Transfusion Reaction Comment: obesity, JOSY noncompliant CPAP use Laterality Cases: Bilateral: Other Other Surgeries: Yes: No Previous Surgery, Cholecystectomy, Colonoscopy, Other. No: Pacemaker Amputation: No Fractures: No Comment: vasectomy,nasal growth - Social History Smoking Status: Never smoker #Yrs smoked (if former smoker): 40 Alcohol Intake: never Alcohol Intake Frequency:: other Substance Use Type: denies use Occupational Status: employed Housing: house Household Members: significant ot
[2020-12-10 09:02] VITALS: BP 121/79; PULSE 78; RESP 16; TEMP 36.8; O2SAT 97
== END 2020-12-10 09:03 | disposition home or self-care (01) ==
PROVIDERS: Emergency Provider Emergency Medicine; PCP Family Medicine
DX: R04.0 Epistaxis (principal); I10 Essential (primary) hypertension; E11.9 Type 2 diabetes mellitus without complications; E78.5 Hyperlipidemia, unspecified; Z87.442 Personal history of urinary calculi
CPT/HCPCS: 30901; 99281

== ENCOUNTER 2020-12-11 14:24 | Emergency (ER) | payer OTHER, SELFPAY ==
[2020-12-11 14:26] VITALS: BP 117/73; PULSE 128; RESP 18; TEMP 36.6; O2SAT 94; BMI 30.8
[2020-12-11 14:32] VITALS: BP 117/73; PULSE 125; O2SAT 94
--- NOTE | 2020-12-11 14:38 | ECG_ITS ---
APPROVED REPORT Exam: Resting ECG HR:122 bpm ECG Measurements Heart Rate 122 AXES WY 126 P 57 QRSd 66 QRS 20 QT 302 T 42 QTc 430 Conclusion Sinus tachycardia Otherwise normal ECG Electronically signed by : Jerrod Leone MD 12/13/2020 07:32:46
[2020-12-11 15:00] VITALS: BP 91/68; PULSE 120; RESP 22; O2SAT 95
[2020-12-11 15:02] VITALS: BMI 30.8
[2020-12-11 15:11] LABS: Basophils # 0.1 K/mm3 (0-0.2); Basophils % 0.4 % (0.1-2.0); Eosinophils # 0.2 K/mm3 (0.0-0.4); Eosinophils % 1.5 % (0.1-12.0); Hematocrit 45.1 % (42.0-52.0); Hemoglobin 14.6 g/dL (14.1-18.0); Lymphocytes # 3.4 K/mm3 (0.7-4.5); Lymphocytes % 20.9 % (10-50); Mean Corpuscular HGB Conc 32.4 g/dL (31.8-35.4); Mean Corpuscular Hemoglobin 26.5 pg (27.0-31.2); Mean Corpuscular Volume 81.8 fl (80-94); Mean Platelet Volume 7.4 fl (7.4-10.4); Monocytes # 1.1 K/mm3 (0.1-1.0); Monocytes % 6.8 % (1.7-9.3); Neutrophils # 11.4 K/mm3 (1.8-7.8); Neutrophils % 70.3 % (37.0-80.0); Platelet Count 424 K/mm3 (142-424); Red Blood Count 5.51 M/mm3 (4.60-6.20); Red Cell Distribution Width 16.1 % (11.5-17.5); White Blood Count 16.2 K/mm3 (4.8-10.8)
[2020-12-11 15:12] LABS: Chloride 104 mmol/L (98-107); Potassium 4.4 mmoL/L (3.5-5.1); Sodium 142 mmol/L (136-145)
[2020-12-11 15:15] LABS: Alanine Aminotransferase 36 U/L (12-78); Albumin Level 4.8 g/dl (3.5-5.0); Albumin/Globulin Ratio 1.3 (1.1-1.8); Alkaline Phosphatase 85 U/L (38-126); Anion Gap 22.4 mEq/L (5-15); Aspartate Amino Transferase 33 U/L (17-59); Bilirubin,Total 0.3 mg/dl (0.2-1.3); Blood Urea Nitrogen 27 mg/dl (9-20); Calcium 10.4 mg/dl (8.4-10.2); Carbon Dioxide 20 mmol/L (22.0-30.0); Creatinine Clearance Estimated 61 mL/min (50-200); Estimated Glomerular Filt Rate 39 ml/min (>60); GFR (African American) 47 ML/MIN (>60); Globulin 3.6 g/dL (1.3-3.2); Glucose 166 mg/dl (74-100); MANUAL DIFFERENTIAL MANUAL DIFFERENTIAL (MANUAL DIFF); Total Protein,Serum 8.4 g/dl (6.3-8.2)
[2020-12-11 15:30] VITALS: BP 107/62; PULSE 113; RESP 18; O2SAT 93
[2020-12-11 15:37] LABS: Eosinophils % 1 % (0-3); Lymphocytes % 18 % (10-50); Microcytosis 1+; Monocytes % 10 % (2-9); Neutrophils % 71 % (42-76); Platelet Estimate Normal; Spherocytes 1+; Total Cells Counted 100
[2020-12-11 15:43] VITALS: O2SAT 94
--- NOTE | 2020-12-11 15:43 | XR_ITS ---
PROCEDURE: XR CHEST PORTABLE CLINICAL HISTORY: low oxygen COMPARISON: No exams were available for comparison FINDINGS: The cardiomediastinal silhouette and pulmonary vascularity are within normal limits. The lungs are clear without infiltrates, suspicious nodules, or pleural effusions. No acute bony abnormalities. IMPRESSION: No acute findings. Dictated by: Jackson Sheridan MD 12/11/2020 16:08 Jackson Sheridan MD in [place] 12/11/2020 16:08
--- NOTE | 2020-12-11 16:04 | HMH.EDGENADL ---
ED Disposition Clinical Impression: PHILLIP (acute kidney injury) Leukocytosis Qualifiers: Leukocytosis type: unspecified Qualified Code(s): D72.829 - Elevated white blood cell count, unspecified Disposition: Home, Self-Care Condition on Discharge: Good Prescriptions: Amoxicillin [Amoxicillin 875MG Tab] 875 mg PO Q12H #14 tab Transmission Status: Pending to [facility] Referrals: Jose R Tellez MD [Primary Care Provider] - 3 days Ajay Bates MD [Staff Physician] - 12/14/20 9:00 am Time of Disposition: 16:11 - Critical Care Critical Care Time: No Attestation: On 12/11/20, the high probability of a clinically significant, sudden or life threatening deterioration of the following system(s) required my full and direct attention, intervention and personal management. The time I documented below is in addition to time spent performing reported procedures but includes the following listed in this critical care notation. Medical Decision Making - Medical Records Medical records reviewed: Yes: I reviewed the patient's medical records. - Reji Inquiry Pt receiving controlled substance: No Vital Signs: 12/11/20 14:26 12/11/20 14:32 12/11/20 15:00 Temperature 98 F Temperature Source Oral Pulse Rate 125 H 120 H Pulse Rate [Right] 128 H Respiratory Rate 18 22 Blood Pressure 117/73 91/68 L Blood Pressure [Right Arm] 117/73 Blood Pressure Mean [Right Arm] 87 02 Sat by Pulse Oximetry 94 L 94 L 95 Oxygen Delivery Method Room Air 12/11/20 15:30 12/11/20 15:43 Temperature Temperature Source Pulse Rate 113 H Pulse Rate [Right] Respiratory Rate 18 Blood Pressure 107/62 L Blood Pressure [Right Arm] Blood Pressure Mean [Right Arm] 02 Sat by Pulse Oximetry 93 L 94 L Oxygen Delivery Method Room Air - Lab Data Lab results reviewed: Yes: I reviewed the patient's lab results. Lab Results 12/11/20 14:40: WBC 16.2 H, RBC 5.51, Hgb 14.6, Hct 45.1, MCV 81.8, MCH 26.5 L, MCHC 32.4, RDW 16.1, Plt Count 424, MPV 7.4, Neut % (Auto) 70.3, Lymph % (Auto) 20.9, [place] % (Auto) 6.8, Eos % (Auto) 1.5, Baso % (Auto) 0.4, Neut # (Auto) 11.4 H, Lymph # (Auto) 3.4, [place] # (Auto) 1.1 H, Eos # (Auto) 0.2, Baso # (Auto) 0.1, Total Counted 100, Neutrophils % (Manual) 71, Lymphocytes % (Manual) 18, Monocytes % (Manual) 10 H, Eosinophils % (Manual) 1, Platelet Estimate Normal, Microcytosis 1+, Spherocytes 1+ 12/11/20 14:40: Sodium 142, Potassium 4.4, Chloride 104, Carbon Dioxide 20 L, Anion Gap 22.4 H, BUN 27 H, Creatinine 1.80 H, Estimated Creat Clear 61, Estimated GFR 39 L, Est GFR ( Amer) 47 L, Glucose 166 H, Calcium 10.4 H, Total Bilirubin 0.3, AST 33, ALT 36, Alkaline Phosphatase 85, Total Protein 8.4 H, Albumin 4.8, Globulin 3.6 H, Albumin/Globulin Ratio 1.3 Result diagrams: 12/11/20 14:40 12/11/20 14:40 Orders (Tests/Meds): ED MEDICATIONS Generic Name Dose Route Start Last Admin Trade Name Freq PRN Reason Stop Dose Admin Sodium Chloride 1,000 mls @ 999 mls/hr 12/11/20 16:00 Sod Chlor 0.9% 1000ml Bag IV 12/11/20 17:00 .Q1H1M SHAKILA Discontinued Medications Generic Name Dose Route Start Last Admin Trade Name Freq PRN Reason Stop Dose Admin Amoxicillin 500 mg 12/11/20 16:01 Amoxicillin 500mg Capsule PO 12/11/20 16:02 ONCE ONE ORDERS Category Date Time Status XR chest portable Stat Exams 12/11/20 15:43 Taken - ECG Data Tracing #1 I reviewed this ECG and interpreted as documented below: 122, sinus tachycardia, no ST elevation or depression, no ectopy, normal intervals. ECG initial impression date: 12/11/20 ECG initial impression time: 14:40 Medical Decision Narrative: 60yo M evaluated for bilateral nasal packing with hypoxia, tachycardia, hypotension. Upon arrival to the emergency department the patient's systolic blood pressure is 110, he is satting 94% on room air. He is mildly tachycardic. Tachycardia and mild hypot
[2020-12-11 17:17] VITALS: BP 133/86; PULSE 105; RESP 18; TEMP 36.6; O2SAT 96
== END 2020-12-11 17:18 | disposition home or self-care (01) ==
PROVIDERS: Emergency Provider Family Medicine; PCP Family Medicine
DX: N17.9 Acute kidney failure, unspecified (principal); D72.829 Elevated white blood cell count, unspecified; E86.0 Dehydration; E11.9 Type 2 diabetes mellitus without complications; K21.9 Gastro-esophageal reflux disease without esophagitis; E78.5 Hyperlipidemia, unspecified; I10 Essential (primary) hypertension
CPT/HCPCS: 71045; 80053; 85007; 85025; 93005; 99282

== ENCOUNTER → 2020-12-19 08:11 | Outpatient (CLI) | payer OTHER, SELFPAY ==
[2020-12-19 10:08] LABS: Hemoglobin A1C 7.7 % (4.0-6.0)
[2020-12-19 16:27] LABS: Alanine Aminotransferase 36 U/L (12-78); Albumin Level 4.2 g/dl (3.5-5.0); Albumin/Globulin Ratio 1.5 (1.1-1.8); Alkaline Phosphatase 66 U/L (38-126); Anion Gap 18.9 mEq/L (5-15); Aspartate Amino Transferase 34 U/L (17-59); Bilirubin,Total 0.3 mg/dl (0.2-1.3); Blood Urea Nitrogen 17 mg/dl (9-20); Calcium 9.4 mg/dl (8.4-10.2); Carbon Dioxide 25 mmol/L (22.0-30.0); Chloride 103 mmol/L (98-107); Chol/HDL Ratio 3.4 (1-3.5); Cholesterol 124 mg/dl (140-200); Estimated Glomerular Filt Rate 69 ml/min (>60); GFR (African American) 83 ML/MIN (>60); Globulin 2.8 g/dL (1.3-3.2); Glucose 140 mg/dl (74-100); HDL Cholesterol 37 mg/dl (40-60); Potassium 4.9 mmoL/L (3.5-5.1); Sodium 142 mmol/L (136-145); Triglycerides 174 mg/dl (30-150); VLDL Cholesterol 35 mg/dL (0-40)
[2020-12-19 16:37] LABS: Direct LDL Cholesterol 62.78 mg/dL (100-129)
[2020-12-19 17:00] LABS: Prostate Specific Ag Screen 2.6 ng/ml (0.0-4.0)
== END ==
PROVIDERS: Visit Provider Family Medicine
DX: E11.9 Type 2 diabetes mellitus without complications (principal); E78.5 Hyperlipidemia, unspecified; Z12.5 Encounter for screening for malignant neoplasm of prostate
CPT/HCPCS: 36415; 80053; 80061; 83036; G0103

== ENCOUNTER → 2022-02-27 10:53 | Outpatient (CLI) | payer OTHER, SELFPAY ==
[2022-02-27 11:26] LABS: Basophils # 0.1 K/mm3 (0-0.2); Eosinophils # 0.3 K/mm3 (0.0-0.4); Eosinophils % 2.7 % (0.1-12.0); Hematocrit 46.6 % (42.0-52.0); Hemoglobin 14.5 g/dL (14.1-18.0); Lymphocytes # 2.7 K/mm3 (0.7-4.5); Lymphocytes % 22.5 % (10-50); Mean Corpuscular HGB Conc 31.1 g/dL (31.8-35.4); Mean Corpuscular Hemoglobin 26.5 pg (27.0-31.2); Mean Platelet Volume 7.9 fl (7.4-10.4); Monocytes # 0.8 K/mm3 (0.1-1.0); Monocytes % 6.3 % (1.7-9.3); Neutrophils # 8.2 K/mm3 (1.8-7.8); Neutrophils % 67.6 % (37.0-80.0); Platelet Count 403 K/mm3 (142-424); Red Blood Count 5.48 M/mm3 (4.60-6.20); Red Cell Distribution Width 14.9 % (11.5-17.5); White Blood Count 12.1 K/mm3 (4.8-10.8)
[2022-02-27 12:01] LABS: Alanine Aminotransferase 37 U/L (12-78); Albumin Level 4.5 g/dl (3.5-5.0); Albumin/Globulin Ratio 1.5 (1.1-1.8); Alkaline Phosphatase 97 U/L (38-126); Aspartate Amino Transferase 35 U/L (17-59); Bilirubin,Total 0.2 mg/dl (0.2-1.3); Blood Urea Nitrogen 18 mg/dl (9-20); Calcium 9.9 mg/dl (8.4-10.2); Carbon Dioxide 25 mmol/L (22.0-30.0); Chloride 107 mmol/L (98-107); Estimated Glomerular Filt Rate 56 ml/min (>60); GFR (African American) 68 ML/MIN (>60); Glucose 108 mg/dl (74-100); Sodium 142 mmol/L (136-145); Total Protein,Serum 7.5 g/dl (6.3-8.2)
== END ==
PROVIDERS: PCP Family Medicine; Visit Provider Surgery
DX: R10.9 Unspecified abdominal pain (principal)
CPT/HCPCS: 36415; 80053; 85025

== ENCOUNTER → 2022-03-01 09:46 | Outpatient (CLI) | payer OTHER, SELFPAY ==
--- NOTE | 2022-03-01 09:46 | CT_ITS ---
FINAL REPORT TECHNIQUE: After the administration of oral and intravenous contrast, axial images were obtained through the abdomen and pelvis by computed tomography. The study was performed with techniques to keep radiation dose as low as reasonably achievable, (ALARA). Individual dose reduction techniques using automated exposure control or adjustment of mA and/or kV according to the patient's size were employed. CLINICAL HISTORY: Abdominal pain, LLQ COMPARISON: September 2018 FINDINGS: Abdomen: There is scarring in the lung bases. There is a small sliding-type hiatal hernia. The liver parenchyma is fatty infiltrated. The gallbladder is absent. There are calcified granulomas in the spleen. The pancreas, adrenals and kidneys appear unremarkable. The aorta is normal in caliber. There is no free fluid or adenopathy. Pelvis: The appendix is not identified. The urinary bladder is unremarkable. There is no free fluid or adenopathy. There is extensive descending and sigmoid colon diverticulosis. There is no localized inflammatory reaction suggesting diverticulitis. IMPRESSION: Extensive diverticulosis without diverticulitis. Small sliding-type hiatal hernia. Reviewed, Interpreted and Dictated by Doug Marie MD Transcribed by Rogerio Romano Authenticated and [facility]
== END ==
PROVIDERS: PCP Family Medicine; Visit Provider Surgery
DX: R10.9 Unspecified abdominal pain (principal); R10.32 Left lower quadrant pain
CPT/HCPCS: 74177; Q9967

== ENCOUNTER → 2022-05-23 10:06 | Outpatient (CLI) | payer OTHER, SELFPAY ==
[2022-05-23 10:55] LABS: Alanine Aminotransferase 45 U/L (12-78); Albumin Level 4.7 g/dl (3.5-5.0); Albumin/Globulin Ratio 1.5 (1.1-1.8); Alkaline Phosphatase 77 U/L (38-126); Anion Gap 12.6 mEq/L (5-15); Aspartate Amino Transferase 36 U/L (17-59); Bilirubin,Total 0.5 mg/dl (0.2-1.3); Blood Urea Nitrogen 16 mg/dl (9-20); Calcium 9.7 mg/dl (8.4-10.2); Carbon Dioxide 19 mmol/L (22.0-30.0); Chloride 109 mmol/L (98-107); Estimated Glomerular Filt Rate 86 ml/min (>60); GFR (African American) 104 ML/MIN (>60); Globulin 3.2 g/dL (1.3-3.2); Glucose 180 mg/dl (74-100); Potassium 4.6 mmoL/L (3.5-5.1); Sodium 136 mmol/L (136-145); Total Protein,Serum 7.9 g/dl (6.3-8.2)
[2022-05-23 11:25] LABS: Thyroid Stimulating Hormone 2.39 uIU/mL (0.465-4.68)
[2022-05-23 11:44] LABS: Vitamin B12 556 pg/mL (239-931)
[2022-05-24 10:49] LABS: Triiodothyronine (T3) Free 3.7 pg/mL (2.0-4.4)
== END ==
PROVIDERS: PCP Family Medicine; Visit Provider Specialist
DX: R25.1 Tremor, unspecified (principal)
CPT/HCPCS: 36415; 80053; 82607; 84443; 84481

== ENCOUNTER → 2022-08-07 07:59 | Outpatient (CLI) | payer OTHER, SELFPAY ==
--- NOTE | 2022-08-07 08:30 | XR_ITS ---
FINAL REPORT CLINICAL HISTORY: COUGH AND WHEEZING COMPARISON: 12/11/2020 FINDINGS: There is no evidence of effusion or other pleural disease. The mediastinum has a normal appearance. The cardiac silhouette is unremarkable. IMPRESSION: Unremarkable chest exam. Reviewed, Interpreted and Dictated by Los Akins MD Transcribed by Enedelia Love Authenticated and [facility]
[2022-08-07 09:19] LABS: Alanine Aminotransferase 38 U/L (12-78); Albumin Level 4.3 g/dl (3.5-5.0); Albumin/Globulin Ratio 1.5 (1.1-1.8); Alkaline Phosphatase 75 U/L (38-126); Anion Gap 20.2 mEq/L (5-15); Aspartate Amino Transferase 36 U/L (17-59); Bilirubin,Total 0.5 mg/dl (0.2-1.3); Blood Urea Nitrogen 20 mg/dl (9-20); Calcium 9.3 mg/dl (8.4-10.2); Carbon Dioxide 23 mmol/L (22.0-30.0); Chloride 100 mmol/L (98-107); Chol/HDL Ratio 2.8 (1-3.5); Cholesterol 104 mg/dl (140-200); Estimated Glomerular Filt Rate 76 ml/min (>60); GFR (African American) 92 ML/MIN (>60); Globulin 2.9 g/dL (1.3-3.2); Glucose 139 mg/dl (74-100); HDL Cholesterol 37 mg/dl (40-60); Potassium 4.2 mmoL/L (3.5-5.1); Sodium 139 mmol/L (136-145); Total Protein,Serum 7.2 g/dl (6.3-8.2); Triglycerides 237 mg/dl (30-150); VLDL Cholesterol 47 mg/dL (0-40)
[2022-08-07 09:43] LABS: Hemoglobin A1C 8.8 % (4.0-6.0)
[2022-08-07 09:48] LABS: Prostate Specific Ag Screen 1.7 ng/ml (0.0-4.0)
== END ==
PROVIDERS: PCP Family Medicine; Visit Provider Family Medicine
DX: E11.9 Type 2 diabetes mellitus without complications (principal); E78.5 Hyperlipidemia, unspecified; R06.2 Wheezing; I10 Essential (primary) hypertension; Z79.84 Long term (current) use of oral hypoglycemic drugs; Z12.5 Encounter for screening for malignant neoplasm of prostate
CPT/HCPCS: 36415; 71046; 80053; 80061; 82043; 83036; G0103

== ENCOUNTER 2022-09-01 10:13 | Emergency (ER) | payer OTHER, SELFPAY ==
[2022-09-01 10:14] VITALS: BP 158/96; PULSE 91; RESP 16; TEMP 36.8; O2SAT 95; BMI 31.5
--- NOTE | 2022-09-01 10:32 | EXP.UTC ---
Discharge Plan Disposition Patient Disposition: Home, Self-Care Condition: Good Prescriptions Prescriptions: New azithromycin [Zithromax] 250 mg tablet 250 mg PO UD DOSE PK Qty: 6 0RF Rx Instructions: Take two (2) tablets today, then one (1) tablet days #2 thru #5 benzonatate [benzonatate] 100 mg capsule 100 mg PO TIDP PRN (Reason: Cough) Qty: 30 0RF methylprednisolone 4 mg Tablets,Dose Pack 4 mg PO DIRECTED Qty: 21 0RF No Action glimepiride 4 mg tablet 4 mg PO BID 30 Days Qty: 60 Label Comments: atorvastatin 40 mg tablet 40 mg PO DAILY 30 Days Qty: 30 Label Comments: lisinopril 20 mg tablet 20 mg PO BID 30 Days Qty: 30 Label Comments: metformin 500 mg tablet 500 mg PO DAILY sitagliptin phosphate 100 mg tablet 100 mg PO DAILY Jardiance 10 mg tablet 10 mg PO Referrals Follow up/Referrals: Jose R Tellez MD [Primary Care Provider] - See instructions Activity Restrictions/Add. Instructions Additional Instructions/Restrictions: Drink plenty of fluids. Take tylenol or ibuprofen for pain or fever. Take the medications as directed. Follow up with your regular doctor. GO TO THE ER FOR ANY WORSENING SYMPTOMS Don't start the oral steroids until tomorrow, since you had the shot here today. Clinical Impressions Clinical Impression: Sinusitis Instructions Patient Instructions: Sinusitis, DI for Sinusitis, Ceftriaxone Injection, Dexamethasone Injection Discharge ED Provider: Rafiq Gibbs [facility] [place] General Stated complaint: head congestion Mode of Arrival: Ambulatory Source of Information: Patient Limitations: No Limitations Time Seen by Provider: 09/01/22 10:32 Description of Symptoms (Recalled from Triage Doc. by RN): Patient complaint of congestion and coughing up [facility] for 2 weeks now. HEENT Symptoms (Recalled from RN notes): Yes Resp Symptoms (Recalled from RN notes): No Skin Symptoms (Recalled from RN notes): No MS Symptoms (Recalled from RN notes): No Functional Status (Recalled from RN notes): wnl History of Present Illness Provider Complaint: she states that for the past 2 weeks he has had sinus congestion. Related Data Home Medications Medication Instructions Recorded Confirmed atorvastatin 40 mg tablet 40 mg PO DAILY Cholesterol 30 days 06/23/05/23/22 ##30 glimepiride 4 mg tablet 4 mg PO BID Diabetes 30 days ##60 06/23/17 05/23/22 lisinopril 20 mg tablet 20 mg PO BID blood pressure 30 06/23/17 05/23/22 days ##30 metformin 500 mg tablet 500 mg PO DAILY blood sugar 05/25/19 05/23/22 sitagliptin phosphate 100 mg tablet 100 mg PO DAILY blood sugar 05/25/19 05/23/22 empagliflozin 10 mg tablet 10 mg PO 12/11/20 05/23/22 (Jardiance) Previous Rx's Medication Instructions Recorded azithromycin 250 mg tablet 250 mg PO UD DOSE PK #6 tabs 09/01/22 (Zithromax) benzonatate 100 mg capsule 100 mg PO TIDP PRN Cough #30 caps 09/01/22 methylprednisolone 4 mg tablets in 4 mg PO DIRECTED #21 tabs 09/01/22 a dose pack Allergies Allergy/AdvReac Type Severity Reaction Status Date / Time banana Allergy Intermediate Verified 05/23/22 09:11 Worker's Comp Is this a Worker's Comp case?: No [facility] Disclaimer: The information contained in this section may have been updated after the patient was seen, as this information can be updated by other users. Surgical History History of colonoscopy Social History (Updated 05/23/22 @ 09:14 by Luh Sanchez) Smoking Status: Former smoker pack-years: 40 second hand exposure: No alcohol intake: never substance use type: denies use current occupational status: employed Travel in the last 8 weeks: None household members: significant other housing: house marital status: current occupation: lawn care current occupational exposures/hazards:
[2022-09-01 11:16] VITALS: BP 158/96; PULSE 91; RESP 16; TEMP 36.8; O2SAT 95
== END 2022-09-01 11:19 | disposition home or self-care (01) ==
PROVIDERS: Emergency Provider Nurse Practitioner Family; PCP Family Medicine
DX: J01.90 Acute sinusitis, unspecified (principal); Z87.891 Personal history of nicotine dependence
CPT/HCPCS: 96372; 99204; 99212; G0463; J0696

== ENCOUNTER 2023-04-29 06:18 | Day surgery (SDC) | payer OTHER, SELFPAY ==
[2023-04-25 16:31] VITALS: BMI 31.5
[2023-04-29] MEDS: LACTATED RINGERS 1000ML 1,000 ML 25 ML IV (06:48)
[2023-04-29 06:54] VITALS: BP 141/96; PULSE 108; RESP 18; TEMP 36.1; O2SAT 96
--- NOTE | 2023-04-29 07:17 | P.PNANES_ITS ---
[facility] Disclaimer: The information contained in this section may have been updated after the patient was seen, as this information can be updated by other users. Medical History History of diabetes mellitus History of hyperlipidemia History of hypertension History of sleep apnea Surgical History History of cholecystectomy History of colonoscopy History of vasectomy Family History Other Family history of diabetes mellitus type II Family history of myocardial infarction Social History Smoking Status: Former smoker second hand exposure: No alcohol intake: never substance use type: denies use current occupational status: employed Travel in the last 8 weeks: None household members: significant other housing: house marital status: current occupation: lawn care current occupational exposures/hazards: Yes caffeine: Yes [facility] Anesthesia Checklist Patient Identification Patient Identification: Arm Band Structural Data Admitted From: Home Planned Operative Procedure/s: Colonoscopy Consent for Planned Operative Procedure(s) Verified: Yes Verified Documents: Surgical Consent and History and Physical NPO Status Verified Time NPO: 00:00 Additional verifications Anesthesia Reactions: No Hx Blood Transfusions: No Blood Transfusion Reaction: No Airway Assessment Mallampati Score:: Class II C-Spine Mobility Assessed: Yes TMJ Mobility Assessed: Yes Dentition: Good Dentition Neurological Assessment Level of Consciousness: Awake and Alert Anesthesia Plan Anesthesia Risk discussed: Yes Anesthesia Plan: Verified ASA Class: III Anesthesia Type: MAC
--- NOTE | 2023-04-29 07:30 | HMH.SCOPE ---
Procedure: Date: 04/29/23 Patient Date of :: 1960 Procedure Performed:: Colonoscopy Indications:: History of polyps Note: Most recent colonoscopy in January 2020 somewhat complicated by moderate bowel preparation and significant spasticity. Scattered diverticulosis and a somewhat enlarged prostate confirmed. Adenomatous polyps of the right colon and of the hepatic flexure were removed in 2017 and 2015 respectively. Performing Provider:: Lex Chen MD Referring Provider:: . Sedation:: Monitored anesthesia care Procedure:: After informed consent was obtained the patient was taken to the endoscopy suite. Sedation ensued after the patient was transferred to the left lateral decubitus position. Pulse, blood pressure, and oxygen saturation were monitored throughout the procedure. Digital rectal exam revealed no significant abnormality. The colonoscope was placed in position. The entire colon was evaluated. The colonoscope was carefully removed and the patient was transferred to recovery in stable condition. Please see findings and specimens below for detail. Findings:: Bowel preparation moderate (patchy areas of poor preparation) Stable slightly enlarged prostate Scattered diverticulosis (worse in sigmoid colon Fairly significant lack of relaxation/spasticity Specimens:: None Recommendations:: Repeat colonoscopy in 3-5 years secondary to history of polyps, moderate bowel preparation, and spasticity/lack of relaxation. Complications:: No immediate Estimated blood obtained (mL): 0 Colonoscopy Component Colonoscopy Component Was a colonoscopy performed during today's procedure?: Yes Recommended follow up colonoscopy of at least 10 years?: No If no, follow up colonoscopy recommended in ___ years?: (See above) Reason for not recommending >/= 10 yr follow-up interval?: (See above)
[2023-04-29 07:31] VITALS: O2SAT 96
[2023-04-29 08:01] VITALS: BP 95/52; PULSE 102; RESP 17; O2SAT 94
[2023-04-29 08:11] VITALS: BP 95/63; PULSE 103; RESP 16; O2SAT 96
[2023-04-29 08:21] LABS: POC Glucose,Bedside 182 (70-110)
[2023-04-29 08:22] VITALS: BP 107/65; PULSE 99; RESP 17; O2SAT 96
== END 2023-04-29 08:28 | disposition home or self-care (01) ==
PROVIDERS: PCP Family Medicine; Visit Provider Surgery
PROC: 0DJD8ZZ Inspection of Lower Intestinal Tract, Via Natural or Artificial Opening Endoscopic (ICD-10-PCS; CPT 45378; principal; 2023-04-29 07:30)
DX: Z12.11 Encounter for screening for malignant neoplasm of colon (principal); Z86.010 Personal history of colon polyps; N40.0 Benign prostatic hyperplasia without lower urinary tract symptoms; K57.30 Diverticulosis of large intestine without perforation or abscess without bleeding; E11.9 Type 2 diabetes mellitus without complications
CPT/HCPCS: 45378; 82962

== ENCOUNTER 2023-08-08 07:23 | Outpatient (CLI) | payer OTHER, SELFPAY ==
[2023-08-08 08:36] LABS: Hemoglobin A1C 10.4 % (4.0-6.0)
[2023-08-08 09:08] LABS: Alanine Aminotransferase 37 U/L (12-78); Albumin Level 4.2 g/dl (3.5-5.0); Albumin/Globulin Ratio 1.3 (1.1-1.8); Alkaline Phosphatase 66 U/L (38-126); Anion Gap 14.5 mEq/L (5-15); Aspartate Amino Transferase 35 U/L (17-59); Bilirubin,Total 0.5 mg/dl (0.2-1.3); Blood Urea Nitrogen 15 mg/dl (9-20); Calcium 9.4 mg/dl (8.4-10.2); Carbon Dioxide 25 mmol/L (22.0-30.0); Chloride 103 mmol/L (98-107); Chol/HDL Ratio 3.2 (1-3.5); Cholesterol 117 mg/dl (140-200); Estimated Glomerular Filt Rate 86 ml/min (>60); GFR (African American) 104 ML/MIN (>60); Globulin 3.3 g/dL (1.3-3.2); Glucose 184 mg/dl (74-100); HDL Cholesterol 37 mg/dl (40-60); Potassium 4.5 mmoL/L (3.5-5.1); Sodium 138 mmol/L (136-145); Total Protein,Serum 7.5 g/dl (6.3-8.2); Triglycerides 138 mg/dl (30-150); VLDL Cholesterol 28 mg/dL (0-40)
[2023-08-08 09:19] LABS: Direct LDL Cholesterol 67.27 mg/dL (100-129)
[2023-08-08 09:38] LABS: Prostate Specific Ag Screen 1.8 ng/ml (0.0-4.0)
== END 2023-08-08 23:59 | disposition home or self-care (01) ==
LOC: LAB 07:23
PROVIDERS: PCP Family Medicine; Visit Provider Family Medicine
DX: E78.5 Hyperlipidemia, unspecified (principal); I10 Essential (primary) hypertension; E11.9 Type 2 diabetes mellitus without complications; Z12.5 Encounter for screening for malignant neoplasm of prostate; Z79.84 Long term (current) use of oral hypoglycemic drugs; Z87.891 Personal history of nicotine dependence
CPT/HCPCS: 36415; 80053; 80061; 83036; G0103

== ENCOUNTER 2023-09-25 08:00 | Outpatient (RCR) | payer OTHER, SELFPAY | END 2023-09-25 09:00 | disposition home or self-care (01) | LOC: OT 08:00 | PROVIDERS: Visit Provider Orthopaedic Surgery | DX: M25.512 Pain in left shoulder (principal) | CPT/HCPCS: 97010; 97014; 97035; 97110; 97140; 97164; 97166; 97530; G0283 ==

== ENCOUNTER 2024-03-19 13:00 | Outpatient (RCR) | payer OTHER, SELFPAY | END 2024-03-19 23:59 | disposition home or self-care (01) | LOC: OT 13:00 | PROVIDERS: Visit Provider Physician Assistant Surgical | DX: Z98.890 Other specified postprocedural states (principal); M75.100 Unspecified rotator cuff tear or rupture of unspecified shoulder, not specified as traumatic | CPT/HCPCS: 97014; 97035; 97110; 97140; 97165; 97168; 97530; G0283 ==

== ENCOUNTER 2024-04-28 14:00 | Outpatient (RCR) | payer OTHER, SELFPAY | END 2024-04-28 23:59 | disposition home or self-care (01) | LOC: OT 14:00 | PROVIDERS: Visit Provider Physician Assistant | DX: Z98.890 Other specified postprocedural states (principal); M25.512 Pain in left shoulder | CPT/HCPCS: 97014; 97110; 97140; 97165; G0283 ==

== ENCOUNTER 2024-05-25 11:00 | Outpatient (RCR) | payer OTHER, SELFPAY | END 2024-05-25 23:59 | disposition home or self-care (01) | LOC: OT 11:00 | PROVIDERS: Visit Provider Physician Assistant | DX: Z98.890 Other specified postprocedural states (principal) | CPT/HCPCS: 97014; 97110; 97140; G0283 ==

== ENCOUNTER 2024-07-08 14:11 | Outpatient (CLI) | payer OTHER, SELFPAY ==
--- NOTE | 2024-07-08 14:15 | XR_ITS ---
FINAL REPORT CLINICAL HISTORY: BRONCHITIS COMPARISON: 08/07/2022 FINDINGS: No acute pulmonary density is evident. There is no evidence of effusion or other pleural disease. The mediastinum has a normal appearance. The cardiac silhouette is unremarkable. IMPRESSION: Unremarkable chest exam. Reviewed, Interpreted and Dictated by Los Akins MD Transcribed by Meghna Nolan Authenticated and [facility]
--- OUTSIDE RECORDS SUMMARY | 2024-07-08 23:32 | XMS_ITS | Clinical Summary ---
Author Organization [facility] , [facility] Address [address] [place] [address] Phone Care Team Providers Care Rag Grader Name Role Phone Inge MEZA, Sai Vivas Unavailable [phone] INOCENCIO MEZA, VIV Unavailable [phone] Reason for Visit and Chief Complaint [facility]atsdin Health Problems Includes: Problems addressed during this encounter and other active Problems All Visits Onset Date Resolved Date Provider Condition S tatus Joint Pain, Localized in the Shoulder 11/17/2023 Sai Alcazar MD Active Last Documented On 4 8:34AM ; [facility], [facility] Plan of Treatment No Plan of Treatment Recorded Assessments Includes: Assessments from this encounter No Assessments Recorded Medical Equipment - Implanted Devices Includes: Current Devices No Medical Equipment Recorded Medications Includes: Medications discussed during this encounter and other current Medications Current Medications (continue as prescribed) Ozempic (1 MG/DOSE) 4 MG/3ML Subcutaneous Solution Pen-injector 01/28/2024 Provider: VIV PAINTER MD Diagnosis: Last Documented On 4 12:04PM By Skylar Doan ; [facility] Lantus SoloStar 100 UNIT/ML Subcutaneous Solution Pen-injector 01/24/2024 Provider: VIV PAINTER MD Diagnosis: Last Documented On 4 12:04PM By Skylar [facility], [facility] FreeStyle Char 2 Sensor Miscellaneous 01/20/2024 Pr ovider: VIV PAINTER MD Diagnosis: Last Documented On 4 12:04PM By Skylar Doan ; [facility] Glimepiride 4 MG Oral Tablet 01/13/2024 Provider: VIV PAINTER MD Diagnosis: Last Documented On 4 12:04PM By Skylar Roe [facility] metFORMIN HCl 500 MG Oral Tablet 01/10/2024 Provider : VIV PAINTER MD Diagnosis: Last Documented On 4 12:04PM By Skylar Doan ; [facility], [facility] Atorvastatin Calcium 40 MG Oral Tablet 01/09/2024 Pr ovider: VIV PAINTER MD Diagnosis: Last Documented On 4 12:04PM By Skylar Doan ; [facility], [facility] Lisinopril 20 MG Oral Tablet 12/10/2023 Provider: VIV PAINTER MD Diagnosis: Last Documented On 4 12:04PM By Skylar Doan ; [facility] Medications Administered Includes: Administered Medications from this encounter No Administered Medications Recorded Results Includes: Results discussed during this encounter No Results Recorded For Specified Dates History of Present Illness Includes: History of Present Illness from this encounter No History of Present Illness Recorded Social History No Social History Recorded - Smoking Status Unknown Procedures and Surgical History Includes: Procedures from this encounter Procedures Code Diagnosis Performing Provider Service Location Service Date ARTHROSCOP ROTATOR CUFF REPR (LEFT) 78615 Complete rotatr-cuff tear/ruptr of left shoulder, not trauma Sai Alcazar MD [facility] 12/19/2023 Last Documented On 4 1:27PM ; [facility] ARTHROSCOPY,SHOULDER,SURGICA L BICEPS TENODESIS (LEFT) 77484 Strain of musc/fasc/tend long head of biceps, left arm, init Sai Alcazar MD [facility] 12/19/2023 Last Documented On 4 1:27PM ; [facility] Medical History Includes: Medical History addressed during this encounter No Medical History Recorded Family History Includes: Family History addressed during this encounter No Family History Recorded Review of Systems Includes: Review of Systems from this encounter No Review of Systems Recorded Mental Status Includes: Mental Status from this encounter No Mental Status Recorded Functional Status Includes: Functional Status from this encounter No Functional Status Recorded Physical Exam Includes: Physical Exam from this encounter No Physical Exam Recorded Allergies Includes: Active Allergies No Known Allergies Encounters Encounter Provider Location Date Check-In Time Check-Out Time Diagnosis [facility] Sai Alcazar MD Surgery 12/19/2023 12/18/2023 7:40AM 11:59PM Insurance Includes: Active Insurance Policies Plan Name Member ID Group # Subscriber Relationship Effect cherrie Dates 1 - [facility] [id number] Ramana Smith Self Clinical Notes Includes: Clinical Notes from this encounter No Clinical Notes Recorded
--- OUTSIDE RECORDS SUMMARY | 2024-07-08 23:32 | XMS_ITS | Clinical Summary ---
Author Organization [facility] , [facility] Address [address] [place] [address] Phone Care Team Providers Care Support Team Assoc Name Role Phone Inge MEZA, Sai Vivas Unavailable Unavail able INOCENCIO MEZA, VIV Murguia [phone] Reason for Visit and Chief Complaint The Chief Complaint is: LEFT SHOULDER PAIN Problems Includes: Problems addressed during this encounter and other active Problems All Visits Onset Date Resolved Date Provider Condition S tatus Joint Pain, Localized in the Shoulder 11/17/2023 Sai Alcazar MD Active Last Documented On 4 8:34AM ; [facility], [facility] Plan of Treatment Instructions to patient Lose weight Last Documented On 4 10:07AM ; [facility], [facility] Assessments Includes: Assessments from this encounter Findings - Overweight - Last Documented On 01/30/2024 11:51AM ; [facility], [facility] Instructions Includes: Instructions from this encounter Instructions to patient Lose weight Last Documented On 4 10:07AM ; [facility], [facility] Medical Equipment - Implanted Devices Includes: Current Devices No Medical Equipment Recorded Medications Includes: Medications discussed during this encounter and other current Medications Current Medications (continue as prescribed) Ozempic (1 MG/DOSE) 4 MG/3ML Subcutaneous Solution Pen-injector 01/28/2024 Provider: VIV PAINTER MD Diagnosis: Last Documented On 4 12:04PM By Skylar Roe [facility], [facility] Lantus SoloStar 100 UNIT/ML Subcutaneous Solution Pen-injector 01/24/2024 Provider: VIV PAINTER MD Diagnosis: Last Documented On 4 12:04PM By Skylar Doan ; [facility], [facility] FreeStyle Char 2 Sensor Miscellaneous 01/20/2024 Pr ovider: VIV PAINTER MD Diagnosis: Last Documented On 4 12:04PM By Skylar Doan ; [facility], [facility] Glimepiride 4 MG Oral Tablet 01/13/2024 Provider: VIV PAINTER MD Diagnosis: Last Documented On 4 12:04PM By Skylar Doan ; [facility], [facility] metFORMIN HCl 500 MG Oral Tablet 01/10/2024 Provider : VIV PAINTER MD Diagnosis: Last Documented On 4 12:04PM By Skylar Doan ; [facility], [facility] Atorvastatin Calcium 40 MG Oral Tablet 01/09/2024 Pr ovider: VIV PAINTER MD Diagnosis: Last Documented On 4 12:04PM By Skylar Doan ; [facility], [facility] Lisinopril 20 MG Oral Tablet 12/10/2023 Provider: VIV PAINTER MD Diagnosis: Last Documented On 4 12:04PM By Skylar Doan ; [facility], [facility] Past Medications on file oxyCODONE HCl 5 MG Oral Tablet 12/26/2023 - 12/31/2023 Provider: Sai wong MD Diagnosis: 1-2 po q 4-6h prn post op pain Last Documented On 4 4:06PM By Sai Alcazra ; [facility], [facility] Ondansetron HCl 4 MG Oral Tablet 11/21/2023 - 12/01/2023 Provider: Sai wong MD Diagnosis: 1 q 8 hours prn nausea 1 q 8 hours prn post op nausea Last Documented On 4 12:37PM By Sravani Lawrence ; [facility] Benzoyl Peroxide Wash 5% External Liquid 11/21/2023 - 11/22/2023 Provider: Sai wong MD Diagnosis: use as directed by Dr. Alcazar Last Documented On 4 12:22PM By Sravani Lawrence ; [facility] Medications Administered Includes: Administered Medications from this encounter No Administered Medications Recorded Vital Signs Includes: Vital Signs from this encounter Vital Name 01/30/2024 10:07A Height (in) 70 Weight (lb) 220 Body Mass Index 31.6 Body Surface Area 2.2 Note: ct Last Documented: On 01/30/2024 10:41A M ; [facility], [facility] Results Includes: Results discussed during this encounter No Results Recorded For Specified Dates History of Present Illness Includes: History of Present Illness from this encounter RAVINDRA Smith is a 63 year old male. - Allergy list reviewed - Problem list reviewed - Medication list reviewed - Previous history of new onset pain 2009 Injury is not work related or an automotive accident - Patient pain level from 1-10: 3 - Yes, previous treatment. Dr. Gibbs - History of Physical Therapy - History of Injections - - Review of medications documented Patient is seen today in follow up after undergoing a left shoulder arthroscopy with small to medium rotator cuff repair. Patient is doing very well. He has been doing his postoperative instructions in phase 1 of the small to medium rotator cuff protocol. Physical exam Patient is awake and alert. Well groomed and nourished. No acute distress. Normal gait and station. Appropriate mood and affect. no rashes, erythema, ecchymosis Sutures removed without difficulty and patient has full active range of motion of his left elbow wrist and hand. He is neurovascularly intact Assessment Left shoulder status post small to medium rotator cuff repair Plan Patient will continue with advancing in physical therapy. He can begin phase 2 and advanced to phase 3 as tolerated. He will follow up with us in 8-10 weeks Social History Description Last Updated Exercising regularly 11/17/2023 Last Documented On 4 10:06AM ; [facility], [facility] No caffeine use 11/17/2023 Last Documented On 4 10:06AM ; [facility] No recent change in diet 11/17/2023 Last Documented On 4 10:06AM ; [facility] Not a current smoker. 11/17/2023 Last Documented On 4 10:06AM ; [facility], [facility] Not using alcohol 11/17/2023 Last Documented On 4 10:06AM ; [facility], [facility] Not using drugs 11/17/2023 Last Documented On 4 10:06AM ; [facility], [facility] Smoking Status Unknown Procedures and Surgical History Includes: Procedures from this encounter Procedures Code Diagnosis Performing Provider Service L ocation Service Date an X-ray was performed 34304 Last Documented On 4 10:07AM ; [facility] an MRI was performed 39102 Last Documented On 4 10:07AM ; [facility], [facility] Surgical History Last Updated History of History of Gallbladder 2023 Last Documented On 4 10:06AM ; [facility], [facility] Medical History Includes: Medical History addressed during this encounter Description Last Updated History of diabetes mellitus 11/17/2023 Last Documented On 4 10:06AM ; [facility] History of diverticulitis of colon 11/16 Last Documented On 4 10:06AM ; [facility] History of Hypertension 11/17/2023 Last Documented On 4 10:06AM ; [facility] History of Sleep Apnea 11/17/2023 Last Documented On 4 10:06AM ; [facility] Family History Includes: Family History addressed during this encounter Description Last Updated Diabetes mellitus 11/17/2023 Last Documented On 4 10:06AM ; [facility] Family history of cancer 11/17/2023 Last Documented On 4 10:06AM ; [facility] Family history of heart disease 11/17/19 24 Last Documented On 4 10:06AM ; [facility] Review of Systems Includes: Review of Systems from this encounter Systemic: Not feeling tired, no recent weight loss, and no recent weight gain. Head: No headache and no sinus pain. Eyes: Vision problems. No Cataracts, no Glasses/Contacts, and no Glaucoma. Otolaryngeal: No hearing loss and no tinnitus. Cardiovascular: No chest pain or discomfort and no palpitations. Hypertension. No High Cholesterol. Pulmonary: No daytime asthma symptoms and no chronic cough. Wheezing. Gastrointestinal: No heartburn and no abdominal pain. No Indigestion, no Peptic Ulcer, no GI Stomach Bleed, no Ulcers, and no Acid Reflux. Endocrine: No hot flashes and no muscle weakness. Diabetes. No Hypothyroid and no Hyperthyroid. Hematologic: No easy bleeding, no tendency for easy bruising, and no Anemia. Musculoskeletal: No Arthritis and no lower back pain. No soft tissue swelling and no localized joint pain. Neurological: No dizziness, no convulsions, and no numbness. Psychological: No anxiety, no emotional lability, no depression, and no insomnia. Not crying for no reason. Skin: No dry skin. No Ulcers, no Scars, and no rash. Allergic and Immunologic: No complaint of seasonal allergic reaction. Mental Status Includes: Mental Status from this encounter Description No anxiety Functional Status Includes: Functional Status from this encounter No Functional Status Recorded Physical Exam Includes: Physical Exam from this encounter Allergies Includes: Active Allergies No Known Allergies Encounters Encounter Provider Location Date Check-In Time Check-Out Time Diagnosis Post Op Javon Grande PA-C [facility] 01/30/20 24 9:49AM 11:04AM Overweight Insurance Includes: Active Insurance Policies Plan Name Member ID Group # Subscriber Relationship Effect cherrie Dates 1 - [employer] [facility] [id number] Ramana Smith Self Clinical Notes Includes: Clinical Notes from this encounter * Progress note Date Encounter Last Documented by 01/30/2024 Post Op Last documented on 01/30/2024; 11:51 AM, Javon Grande PA-C; [facility], [facility] Active Problems & Conditions - Joint Pain, Localized in the Shoulder Chief Complaint The Chief Complaint is: LEFT SHOULDER PAIN. Referred Here Referred by Orthopedics. History of Present Illness Ramana Smith is a 63 year old male. - Allergy list reviewed - Problem list reviewed - Medication list reviewed - Previous history of new onset pain 2009 Injury is not work related or an automotive accident - Patient pain level from 1-10: 3 - Yes, previous treatment. Dr. Gibbs - History of Physical Therapy - History of Injections - - Review of medications documented Patient is seen today in follow up after undergoing a left shoulder arthroscopy with small to medium rotator cuff repair. Patient is doing very well. He has been doing his postoperative instructions in phase 1 of the small to medium rotator cuff protocol. Physical exam Patient is awake and alert. Well groomed and nourished. No acute distress. Normal gait and station. Appropriate mood and affect. no rashes, erythema, ecchymosis Sutures removed without difficulty and patient has full active range of motion of his left elbow wrist and hand. He is neurovascularly intact Assessment Left shoulder status post small to medium rotator cuff repair Plan Patient will continue with advancing in physical therapy. He can begin phase 2 and advanced to phase 3 as tolerated. He will follow up with us in 8-10 weeks Current Medication - Atorvastatin Calcium 40 MG Oral Tablet 90 days, 0 refills - FreeStyle Char 2 Sensor Miscellaneous 28 days, 0 refills - Glimepiride 4 MG Oral Tablet 90 days, 0 refills - Lantus SoloStar 100 UNIT/ML Subcutaneous Solution Pen-injector 24 days, 0 refills - Lisinopril 20 MG Oral Tablet 90 days, 0 refills - metFORMIN HCl 500 MG Oral Tablet 90 days, 0 refills - Ozempic (1 MG/DOSE) 4 MG/3ML Subcutaneous Solution Pen-injector 28 days, 0 refills Past Medical/Surgical History Diagnoses: Sleep Apnea Hypertension. Diverticulitis of colon. Diabetes mellitus Surgical: - History of Gallbladder Social History Not a current smoker. Current diet: No recent change in diet. Caffeine use: No caffeine use. Alcohol: Not using alcohol. Drug Use: Not using drugs. Habits: Exercising regularly. Allergies - No Known Allergies Family History Cancer Heart disease Diabetes mellitus Review Of Systems Systemic: Not feeling tired, no recent weight loss, and no recent weight gain. Head: No headache and no sinus pain. Eyes: Vision problems. No Cataracts, no Glasses/Contacts, and no Glaucoma. Otolaryngeal: No hearing loss and no tinnitus. Cardiovascular: No chest pain or discomfort and no palpitations. Hypertension. No High Cholesterol. Pulmonary: No daytime asthma symptoms and no chronic cough. Wheezing. Gastrointestinal: No heartburn and no abdominal pain. No Indigestion, no Peptic Ulcer, no GI Stomach Bleed, no Ulcers, and no Acid Reflux. Endocrine: No hot flashes and no muscle weakness. Diabetes. No Hypothyroid and no Hyperthyroid. Hematologic: No easy bleeding, no tendency for easy bruising, and no Anemia. Musculoskeletal: No Arthritis and no lower back pain. No soft tissue swelling and no localized joint pain. Neurological: No dizziness, no convulsions, and no numbness. Psychological: No anxiety, no emotional lability, no depression, and no insomnia. Not crying for no reason. Skin: No dry skin. No Ulcers, no Scars, and no rash. Allergic and Immunologic: No complaint of seasonal allergic reaction. Physical Findings - Vitals taken 01/30/2024 10:[address] Height 70 in Weight 220 lbs Body Mass Index 31.6 kg/m2 Body Surface Area 2.2 m2 Assessment - Overweight Previous Tests Imaging: X-Ray: An X-ray was performed. MRI Scan: An MRI was performed. Counseling/Education - Tobacco non-user - Use of tobacco assessment performed - Lose weight Notes This dictation was done with voice recognition software and may contain errors and omissions. Care Team - VIV PAINTER MD - STEREO MAP PLOTTER OPERATOR
--- OUTSIDE RECORDS SUMMARY | 2024-07-08 23:32 | XMS_ITS ---
Care Plan - [facility], [facility] Created on: July 08, 2024 [place] Ramana W : 1960 Sex: Male Author Organization [facility] , [facility] Address [address] [place] [address] Phone Care Team Providers Care Outside Physical Damage Appraiser Name Role Phone Inge MEZA, Sai Vivas Unavailable [phone] INOCENCIO MEZA, VIV Unavailable [phone]
--- OUTSIDE RECORDS SUMMARY | 2024-07-08 23:32 | XMS_ITS | Clinical Summary ---
Author Organization [facility] , [facility] Address [address] [place] [address] Phone Care Team Providers Care Electrocardiograph Technician Name Role Phone Inge MEZA, Sai Vivas Unavailable Unavail able INOCENCIO MEZA, VIV uMrguia [phone] Reason for Visit and Chief Complaint The Chief Complaint is: LEFT SHOULDER PAIN Problems Includes: Problems addressed during this encounter and other active Problems All Visits Onset Date Resolved Date Provider Condition S tatus Joint Pain, Localized in the Shoulder 11/17/2023 Sai Alcazar MD Active Last Documented On 4 8:34AM ; [facility] Plan of Treatment Pending Tests Order Diagnosis Results Due Ordering P rovider Therapy - Physical Therapy Shoulder Overweight 01/02/24 Javon Grande PA-C Last Documented On 4 9:48AM ; [facility] Instructions to patient Lose weight Last Documented On 4 9:11AM ; [facility] Assessments Includes: Assessments from this encounter Findings - Overweight - Last Documented On 01/02/2024 9:50AM ; [facility] Instructions Includes: Instructions from this encounter Instructions to patient Lose weight Last Documented On 4 9:11AM ; [facility] Medical Equipment - Implanted Devices Includes: Current Devices No Medical Equipment Recorded Medications Includes: Medications discussed during this encounter and other current Medications Current Medications (continue as prescribed) Ozempic (1 MG/DOSE) 4 MG/3ML Subcutaneous Solution Pen-injector 01/28/2024 Provider: VIV PAINTER MD Diagnosis: Last Documented On 4 12:04PM By Skylar Doan ; [facility], [facility] Lantus SoloStar 100 UNIT/ML Subcutaneous Solution Pen-injector 01/24/2024 Provider: VIV PAINTER MD Diagnosis: Last Documented On 4 12:04PM By Skylar Doan ; [facility], [facility] FreeStyle Char 2 Sensor Miscellaneous 01/20/2024 Pr ovider: VIV PAINTER MD Diagnosis: Last Documented On 4 12:04PM By Skylar Doan ; [facility], [facility] Glimepiride 4 MG Oral Tablet 01/13/2024 Provider: VIV PAINTER MD Diagnosis: Last Documented On 4 12:04PM By Skylar Doan ; [facility], [facility] metFORMIN HCl 500 MG Oral Tablet 01/10/2024 Provider : VIV PAINTER MD Diagnosis: Last Documented On 4 12:04PM By Skylar Doan ; [facility], [facility] Atorvastatin Calcium 40 MG Oral Tablet 01/09/2024 Pr ovider: VIV PAINTER MD Diagnosis: Last Documented On 4 12:04PM By Skylar Doan ; [facility], [facility] Lisinopril 20 MG Oral Tablet 12/10/2023 Provider: VIV PAINTER MD Diagnosis: Last Documented On 4 12:04PM By Skylar Doan ; [facility], [facility] Past Medications on file oxyCODONE HCl 5 MG Oral Tablet 12/26/2023 - 12/31/2023 Provider: Sai wong MD Diagnosis: 1-2 po q 4-6h prn post op pain Last Documented On 4 4:06PM By Sai Alcazar ; [facility], [facility] Ondansetron HCl 4 MG Oral Tablet 11/21/2023 - 12/01/2023 Provider: Sai wong MD Diagnosis: 1 q 8 hours prn nausea 1 q 8 hours prn post op nausea Last Documented On 4 12:37PM By Sravani Lawrence ; [facility], [facility] Benzoyl Peroxide Wash 5% External Liquid 11/21/2023 - 11/22/2023 Provider: Sai wong MD Diagnosis: use as directed by Dr. Alcazar Last Documented On 4 12:22PM By Sravani Lawrence ; [facility] Medications Administered Includes: Administered Medications from this encounter No Administered Medications Recorded Vital Signs Includes: Vital Signs from this encounter Vital Name 01/02/2024 09:12A Height (in) 70 Weight (lb) 225 Body Mass Index 32.3 Body Surface Area 2.2 Note: ab Last Documented: On 01/02/2024 9:12AM ; [facility] Results Includes: Results discussed during this [...] work related or an automotive accident - Sharp pain Symptoms - Pain is occasional (25% of the time) - Patient pain level from 1-10: 7 - Yes, previous treatment. Dr. Gibbs - History of Physical Therapy - History of Injections - - Review of medications documented Patient is seen today in follow up after undergoing a left shoulder arthroscopy with small to medium rotator cuff repair. Patient is doing very well. He has been doing his postoperative instructions he has little to no discomfort Physical exam Patient is awake and alert. [...] cuff repair Plan Patient will continue with phase 1 of his small to medium rotator cuff repair protocol. He will follow up with us in 4-5 weeks at which time she will be able to progress to phase 2 Social History Description Last Updated Exercising regularly 11/17/2023 Last Documented On 4 9:11AM ; [facility] No caffeine use 11/17/2023 Last Documented On 4 9:11AM ; [facility], [facility] No recent change in diet 11/17/2023 Last Documented On 4 9:11AM ; [facility] Not a current smoker. 11/17/2023 Last Documented On 4 9:11AM ; [facility], [facility] Not using alcohol 11/17/2023 Last Documented On 4 9:11AM ; [facility] Not using drugs 11/17/2023 Last Documented On 4 9:11AM ; [facility], [facility] Smoking Status Unknown Procedures and Surgical History Includes: Procedures from this encounter Procedures Code Diagnosis Performing Provider Service L ocation Service Date an X-ray was performed 23647 Last Documented On 4 9:11AM ; [facility], [facility] an MRI was performed [id number] Last Documented On 4 9:11AM ; [facility], [facility] Surgical History Last Updated History of History of Gallbladder 2023 Last Documented On 4 9:11AM ; [facility], [facility] Medical History Includes: Medical History addressed during this encounter Description Last Updated History of diabetes mellitus 11/17/2023 Last Documented On 4 9:11AM ; [facility], [facility] History of diverticulitis of colon 11/16 Last Documented On 4 9:11AM ; [facility] History of Hypertension 11/17/2023 Last Documented On 4 9:11AM ; [facility] History of Sleep Apnea 11/17/2023 Last Documented On 4 9:11AM ; [facility], [facility] Family History Includes: Family History addressed during this encounter Description Last Updated Diabetes mellitus 11/17/2023 Last Documented On 4 9:11AM ; [facility], [facility] Family history of cancer 11/17/2023 Last Documented On 4 9:11AM ; [facility] Family history of heart disease 11/17/19 24 Last Documented On 4 9:11AM ; [facility] Review of Systems Includes: Review of [...] Time Diagnosis Post Op Javon Grande PA-C [facility] 01/02/20 24 9:04AM 9:53AM Overweight Insurance Includes: Active Insurance Policies Plan Name Member ID Group # Subscriber Relationship Effect cherrie Dates 1 - [employer] [facility] [id number] Ramana Smith Self Clinical Notes Includes: Clinical Notes from this encounter * Progress note Date Encounter Last Documented by 01/02/2024 Post Op Last documented on 01/02/2024; 9:50 AM, Javon Saeed; [facility], [facility] Active Problems & Conditions - Joint [...] work related or an automotive accident - Sharp pain Symptoms - Pain is occasional (25% of the time) - Patient pain level from 1-10: 7 - Yes, previous treatment. Dr. Gibbs - History of Physical Therapy - History of Injections - - Review of medications documented Patient is seen today in follow up after undergoing a left shoulder arthroscopy with small to medium rotator cuff repair. Patient is doing very well. He has been doing his postoperative instructions he has little to no discomfort Physical exam Patient is awake and alert. [...] cuff repair Plan Patient will continue with phase 1 of his small to medium rotator cuff repair protocol. He will follow up with us in 4-5 weeks at which time she will be able to progress to phase 2 Current Medication - Atorvastatin Calcium 40 MG Oral Tablet take as directed 90 days, 0 refills - Glimepiride 4 MG Oral Tablet take as directed 90 days, 0 refills - Lantus SoloStar 100 UNIT/ML Subcutaneous Solution Pen-injector take as directed 90 days, 0 refills - Lisinopril 20 MG Oral Tablet take as directed 90 days, 0 refills - metFORMIN HCl 500 MG Oral Tablet take as directed 90 days, 0 refills Past Medical/Surgical History Diagnoses: [...] allergic reaction. Physical Findings - Vitals taken 01/02/2024 09:12 am ab Height 70 in Weight 225 lbs Body Mass Index 32.3 kg/m2 Body Surface Area 2.2 m2 Assessment - Overweight Previous Tests Imaging: X-Ray: An X-ray was performed. MRI Scan: An MRI was performed. Counseling/Education - Tobacco non-user - Use of tobacco assessment performed - Lose weight Plan StartCited - Overweight Therapy/Physical Therapy: Shoulder Instructions: See PT order attached EndCited Notes This dictation was done with voice recognition software and may contain errors and omissions. Care Team - VIV PAINTER MD - UNIT AIDE
--- OUTSIDE RECORDS SUMMARY | 2024-07-08 23:32 | XMS_ITS ---
Author Organization [facility] Address [address] [place] [address] Phone Care Team Providers Care Pipe Bender Name Role Phone Inge MEZA, Sai Vivas Unavailable [phone] INOCENCIO MEZA, VIV Unavailable [phone] Problems Includes: Active, inactive, and resolved Problems All Visits Onset Date Resolved Date Provider Condition S tatus Joint Pain, Localized in the Shoulder 11/17/2023 Sai Alcazar MD Active Last Documented On 4 8:34AM ; [facility] Plan of Treatment Instructions to patient Lose weight Last Documented On 5 9:06AM ; [facility] Lose weight Last Documented On 4 9:47AM ; [facility] Lose weight Last Documented On 4 10:07AM ; [facility] Lose weight Last Documented On 4 9:11AM ; [facility] Lose weight Last Documented On 4 11:48AM ; [facility] Assessments Includes: Assessments for all patient encounters Findings Encounter Date Overweight Post Op with Javon Moe 01/30/2024 Last Documented On 4 11:51AM ; [facility] Overweight Post Op with Javon Moe 01/02/2024 Last Documented On 4 9:50AM ; [facility] Overweight SECOND OPINION with Sai Alcazar MD 11/17/2023 Last Documented On 4 6:47AM ; [facility] Instructions Includes: Instructions for all patient encounters Instructions to patient Lose weight Last Documented On 5 9:06AM ; [facility] Lose weight Last Documented On 4 9:47AM ; [facility] Lose weight Last Documented On 4 10:07AM ; [facility] Lose weight Last Documented On 4 9:11AM ; [facility] Lose weight Last Documented On 4 11:48AM ; [facility] Medical Equipment - Implanted Devices Includes: Current and historical Devices No Medical Equipment Recorded Medications Includes: Current and historical Medications Current Medications (continue as prescribed) Ozempic (1 MG/DOSE) 4 MG/3ML Subcutaneous Solution Pen-injector 01/28/2024 Provider: VIV PAINTER MD Diagnosis: Last Documented On 4 12:04PM By Skylar Doan ; [facility] Lantus SoloStar 100 UNIT/ML Subcutaneous Solution Pen-injector 01/24/2024 Provider: VIV PAINTER MD Diagnosis: Last Documented On 4 12:04PM By Skylar Doan ; [facility] FreeStyle Char 2 Sensor Miscellaneous 01/20/2024 Pr ovider: VIV PAINTER MD Diagnosis: Last Documented On 4 12:04PM By Skylar Doan ; [facility] Glimepiride 4 MG Oral Tablet 01/13/2024 Provider: VIV PAINTER MD Diagnosis: Last Documented On 4 12:04PM By Skylar Doan ; [facility] metFORMIN HCl 500 MG Oral Tablet 01/10/2024 Provider : VIV PAINTER MD Diagnosis: Last Documented On 4 12:04PM By Skylar Doan ; [facility] Atorvastatin Calcium 40 MG Oral Tablet 01/09/2024 Pr ovider: VIV PAINTER MD Diagnosis: Last Documented On 4 12:04PM By Skylar Doan ; [facility] Lisinopril 20 MG Oral Tablet 12/10/2023 Provider: VIV PAINTER MD Diagnosis: Last Documented On 4 12:04PM By Skylar Doan ; [facility] Past Medications on file oxyCODONE HCl 5 MG Oral Tablet 12/26/2023 - 01/29/2024 Provider: Sai wong MD Diagnosis: Last Documented On 4 12:04PM By Skylar Doan ; [facility] oxyCODONE HCl 5 MG Oral Tablet 12/26/2023 - 12/31/2023 Provider: Sai wong MD Diagnosis: 1-2 po q 4-6h prn post op pain Last Documented On 4 4:06PM By Sai Alcazar ; [facility] Benzoyl Peroxide Wash 5% External Liquid 12/05/2023 - 01/29/2024 Provider: Sai wong MD Diagnosis: Last Documented On 4 12:04PM By Skylar Doan ; [facility] Ondansetron HCl 4 MG Oral Tablet 11/21/2023 - 12/01/2023 Provider: Sai wong MD Diagnosis: 1 q 8 hours prn nausea 1 q 8 hours prn post op nausea Last Documented On 4 12:37PM By Sravani Lawrence ; [facility] Benzoyl Peroxide Wash 5% External Liquid 11/21/2023 - 11/22/2023 Provider: Sai wong MD Diagnosis: use as directed by Dr. Alcazar Last Documented On 4 12:22PM By Sravani Lawrence ; [facility] metFORMIN HCl 500 MG Oral Tablet 10/18/2023 - 01/29/20 24 Provider: VIV PAINTER MD Diagnosis: Last Documented On 4 12:03PM By Skylar Doan ; [facility] Glimepiride 4 MG Oral Tablet 10/17/2023 - 01/29/2024 Cheikh guerin: VIV PAINTER MD Diagnosis: Last Documented On 4 12:03PM By Skylar Doan ; [facility] Lantus SoloStar 100 UNIT/ML Subcutaneous Solution Pen-injector 10/09/2023 - 01/29/2024 Provider: VIV Caraballo Diagnosis: Last Documented On 4 12:03PM By Skylar Doan ; [facility] Lisinopril 20 MG Oral Tablet 09/15/2023 - 01/29/2024 Cheikh guerin: VIV PAINTER MD Diagnosis: Last Documented On 4 12:03PM By Skylar Doan ; [facility] Atorvastatin Calcium 40 MG O ral Tablet 07/20/2023 - 01/29/2024 Provider: VIV Caraballo Diagnosis: Last Documented On 4 12:03PM By Skylar Doan ; [facility] Medications Administered Includes: Administered Medications in patient's chart No Administered Medications Recorded Vital Signs Includes: Vital Signs from 07/09/2023 through 07/08/2024 Vital Name 05/27/2024 09:06A 03/25/2024 09:47A 01/30/2024 10:07A 01/02/2024 09:12A 11/17/2023 09:13A Height (in) 70 70 70 70 70 Weight (lb) 220 220 220 225 225 Body Mass Index 31.6 31.6 31.6 32.3 32.3 Body Surface Area 2.2 2.2 2.2 2.2 2.2 Note: bfj ab ct ab SG Last Documented: On 05/27/2024 9:06AM ; [facility] On 03/25/2024 9:47AM ; [facility] On 01/30/2024 10:41AM ; [facility] On 01/02/2024 9:12AM ; [facility] On 11/17/2023 9:14AM ; [facility] Results Includes: Results from 07/09/2023 through 07/08/2024 No Results Recorded For Specified Dates History of Present Illness History of Present Illness not supported for this document type No History of Present Illness Recorded Social History Description Last Updated Exercising regularly 11/17/2023 Last Documented On 4 6:47AM ; [facility] No caffeine use 11/17/2023 Last Documented On 4 6:47AM ; [facility] No recent change in diet 11/17/2023 Last Documented On 4 6:47AM ; [facility] Not a current smoker. 11/17/2023 Last Documented On 4 6:47AM ; [facility] Not using alcohol 11/17/2023 Last Documented On 4 6:47AM ; [facility] Not using drugs 11/17/2023 Last Documented On 4 6:47AM ; [facility] Smoking Status Unknown Procedures and Surgical History Includes: Procedures from 07/09/2023 through 07/08/2024 Procedures Code Diagnosis Performing Provider Service Location Service Date ARTHROSCOP ROTATOR CUFF REPR (LEFT) 35800 Complete rotatr-cuff tear/ruptr of left shoulder, not trauma Sai Alcazar MD [facility] 12/19/2023 Last Documented On 4 1:27PM ; [facility] ARTHROSCOPY,SHOULDER,SURGICA L BICEPS TENODESIS (LEFT) 69025 Strain of musc/fasc/tend long head of biceps, left arm, init Sai Alcazar MD [facility] 12/19/2023 Last Documented On 4 1:27PM ; [facility] ARC SLING L3960 Complete rotatr- cuff tear/ruptr of left shoulder, not trauma Sai Alcazar MD [facility] 11/19/2023 Last Documented On 4 11:36AM ; [facility] Surgical History Last Updated History of History of Gallbladder 2023 Last Documented On 4 6:47AM ; [facility] Medical History Includes: Medical History in patient's chart Description Last Updated History of diabetes mellitus 11/17/2023 Last Documented On 4 6:47AM ; [facility] History of diverticulitis of colon 11/16 Last Documented On 4 6:47AM ; [facility] History of Hypertension 11/17/2023 Last Documented On 4 6:47AM ; [facility] History of Sleep Apnea 11/17/2023 Last Documented On 4 6:47AM ; [facility] Family History Includes: Family History in patient's chart Description Last Updated Diabetes mellitus 11/17/2023 Last Documented On 4 6:47AM ; [facility] Family history of cancer 11/17/2023 Last Documented On 4 6:47AM ; [facility] Family history of heart disease 11/17/19 24 Last Documented On 4 6:47AM ; [facility] Review of Systems Review of Systems not supported for this document type No Review of Systems Recorded Mental Status Description No anxiety Functional Status No Functional Status Recorded Physical Exam Physical Exam not supported for this document type No Physical Exam Recorded Allergies Includes: Active, inactive, and resolved Allergies No Known Allergies Encounters Includes: Encounters from 07/09/2023 through 07/08/2024 Encounter Provider Location Date Check-In Time Check-Out Time Diagnosis Follow Up Coleman Morris PA-C [facility] 05/27/19 25 9:01AM 9:16AM Follow Up Coleman Morris PA-C [facility] 03/25/20 24 9:46AM 10:05AM Post Op Javon Grande PA-C [facility] 01/30/20 24 9:49AM 11:04AM Overweight Post Op Javon Grande PA-C [facility] 01/02/20 24 9:04AM 9:53AM Overweight [facility] Sai Alcazar MD Surgery 12/19/19 24 12/18/2023 7:40AM 11/17/2023 11:59PM [Patient Encounter] Sai Alcazar MD 12/19/19 24 11/17/2023 9:18AM 11/17/2023 11:59PM [facility] Sai Alcazar MD [facility] 11/19/19 24 11/17/2023 10:00AM 11/17/2023 11:59PM SECOND OPINION Sai Alcazar MD [facility] 11/17/19 24 8:33AM 9:00AM Overweight Insurance Includes: Active Insurance Policies Plan Name Member ID Group # Subscriber Relationship Effect cherrie Dates 1 - [employer] [facility] [id number] Ramana Smith Self Clinical Notes Includes: Signed Clinical Notes starting from 03/14/2022 * Progress note Date Encounter Last Documented by 05/27/2024 Follow Up Last documented on 05/27/2024; 11:30 AM, Coleman Morris PA-C; [facility] Active Problems & Conditions - Joint Pain, Localized in the Shoulder Chief Complaint The Chief Complaint is: LEFT SHOULDER PAIN. Referred Here Referred by Orthopedics. History of Present Illness Ramana Smith is a 63 year old male. - Allergy list reviewed - Problem list reviewed - Medication list reviewed Current Medication - Atorvastatin Calcium 40 MG [...] allergic reaction. Physical Findings - Vitals taken 05/27/2024 09:06 am bfj Height 70 in Weight 220 lbs Body Mass Index 31.6 kg/m2 Body Surface Area 2.2 m2 Patient is awake and alert. Well groomed and nourished. No acute distress. Normal gait and station. Appropriate mood and affect. patient shows full motion without pain. Strength in the cuff is 4/5. No instability. No skin changes. No bony deformities or joint effusion. Normal sensation +2 radial pulse Assessment Left cuff repair Counseling/Education - Tobacco non-user - Use of tobacco assessment performed - Lose weight Plan Patient is at MMI. We will return the patient to full release and normal activities. They can follow-up as needed. No further questions. Care Team - VIV PAINTER MD - RACE RELATIONS ADVISER * Progress note Date Encounter Last Documented by 03/25/2024 Follow Up Last documented on 03/25/2024; 11:11 AM, Coleman Morris PA-C; [facility] Active Problems & Conditions - Joint Pain, Localized in the Shoulder Chief Complaint The Chief Complaint is: LEFT SHOULDER PAIN. Referred Here Referred by Orthopedics. History of Present Illness Ramana Smith is a 63 year old male. - Allergy list reviewed - Problem list reviewed - Medication list reviewed Current Medication - Atorvastatin Calcium 40 MG [...] allergic reaction. Physical Findings - Vitals taken 03/25/2024 09:47 am ab Height 70 in Weight 220 lbs Body Mass Index 31.6 kg/m2 Body Surface Area 2.2 m2 General Exam: The patient is awake and alert. No acute distress. Normal mood and affect for age. Well groomed and nourished Neuro: Sensation was intact to light touch over the extremity. Vascular: +2 radial pulses. No edema. Derm: No signs of active infection. No acute skin changes. Musculoskeletal: Normal gait and station. No muscle atrophy. No joint effusion. No muscle or bony deformity. Patient has pain with active forward flexion. Full passive motion. There is pain and weakness with supraspinatus testing. Assessment Left cuff repair Previous Tests Imaging: X-Ray: An X-ray was performed. MRI Scan: An MRI was performed. Counseling/Education - Tobacco non-user - Use of tobacco assessment performed - Lose weight Plan He is motion is improving pain and weakness at this point our typical postop. He has no formal restrictions he will continue physical therapy. Follow up as scheduled Notes This dictation was done with voice recognition software and may contain errors and omissions. Care Team - VIV PAINTER MD - RACE RELATIONS ADVISER * Progress note Date Encounter Last Documented by 01/30/2024 Post Op Last documented on 01/30/2024; 11:51 AM, Javon Grande PA-C; [facility] Active Problems & Conditions - Joint [...] Tablet 90 days, 0 refills - FreeStyle Chra 2 Sensor Miscellaneous 28 days, 0 refills [...] Care Team - VIV PAINTER MD - RACE RELATIONS ADVISER * Progress note Date Encounter Last Documented by 01/02/2024 Post Op Last documented on 01/02/2024; 9:50 AM, Javon Saeed; [facility] Active Problems & Conditions - Joint [...] Care Team - VIV PAINTER MD - RACE RELATIONS ADVISER * Progress note Date Encounter Last Documented by 11/17/2023 SECOND OPINION Last documented on 12/10/2023; 6:47 AM, Sai Alcazar MD; [facility] Active Problems & Conditions - Joint Pain, Localized in the Shoulder Chief Complaint The Chief Complaint is: LEFT SHOULDER PAIN. Referred Here Referred by Orthopedics. History of Present Illness Ramana Smith is a 63 year old male. - Problem list reviewed - Medication list [...] - Review of medications documented Patient is here for his left shoulder. He has had at least 2-3 years of moderate to severe left shoulder pain. He is right-hand dominant. He has difficulty sleeping reaching pushing pulling lifting. He has done rest, modification activity, utilization of anti-inflammatories and exercise treatment. He eventually came to an MRI which demonstrated a tear in his rotator cuff he is here for evaluation of this. Current Medication - Atorvastatin Calcium 40 MG [...] allergic reaction. Physical Findings - Vitals taken 11/17/2023 09:13 am SG Height 70 in Weight 225 lbs Body Mass Index 32.3 kg/m2 Body Surface Area 2.2 m2 Alert and oriented x 3, Skin intact, No gross deformity, no atrophy of rotator cuff musculature, Sensation intact to light touch through upper extremity. Fingers warm well perfused. Impingement testing positive. Range of motion limited by pain. Weakness to supraspinatus and infraspinatus strength testing. Subscapularis testing negative. Positive biceps signs to speeds and upper cut testing. Tests MRI shows a full-thickness supraspinatus tear proximally 2 cm in anterior- posterior dimension with a partial-thickness long head biceps tendon tear there is moderate AC joint arthropathy. No significant rotator cuff atrophy Assessment - Overweight Full-thickness rotator cuff tear in a active 63-year-old gentleman who has had years of left shoulder pain unresponsive to rest modification of activity use of anti-inflammatories. Previous Tests Imaging: X-Ray: An X-ray was performed. MRI Scan: An MRI was performed. Counseling/Education - Tobacco non-user - Use of tobacco assessment performed - Lose weight Plan Plan at this point we will be to proceed with an arthroscopic rotator cuff repair with possible biceps tenodesis based on intraoperative findings. Goals risks benefits rehab and recovery were described he wishes to proceed. Rationale for this is that this is a full-thickness tear he is of an age in his level of health where I believe his outcome would be best with surgical measures. In addition he is active and therefore and structurally intact rotator cuff would give him the best level of function. He wishes to proceed. The patient understands the risk of surgery to include but are not limited to infection, possible nerve damage, tendon or vessel injury, scar sensitivity and anesthesia.The patient understands the need for postoperative rehabilitation and therapy. The patient had no further questions regarding the surgery or potential risks. This patient was prescribed a shoulder immobilizer for rotator cuff tear, full-thickness. The patient has weakness and / or instability of their left upper extremity which requires stabilization from this semi-rigid / rigid orthosis to improve their function. Verbal and written instructions for the use and application of this item were given. Patient was instructed that should the brace result in increased pain, decreased sensation, increased swelling, or an overall worsening of their medical condition, to please contact our office immediately. Orthotic management and training was provided for skin care, modifications due to healing tissues, edema changes, interruption in skin integrity, and safety precautions with the orthosis. Surgery: Left arthroscopic rotator cuff repair with possible biceps tenodesis using Arthrex Notes This dictation was done with voice recognition software and may contain errors and omissions. Care Team - VIV PAINTER MD - RACE RELATIONS ADVISER
--- OUTSIDE RECORDS SUMMARY | 2024-07-08 23:32 | XMS_ITS | Clinical Summary ---
Author Organization [facility] , [facility] Address [address] [place] [address] Phone Care Team Providers Care Mgmt Specialist Name Role Phone Inge MEZA, Sai Vivas Unavailable Unavail able INOCENCIO MEZA, VIV Unavailable [phone] Reason for Visit and Chief Complaint The Chief Complaint is: LEFT SHOULDER PAIN Problems Includes: Problems addressed during this encounter and other active Problems All Visits Onset Date Resolved Date Provider Condition S tatus Joint Pain, Localized in the Shoulder 11/17/2023 Sai Alcazar MD Active Last Documented On 4 8:34AM ; [facility] Plan of Treatment Patient is at [facility]. We will return the patient to full release and normal activities. They can follow-up as needed. No further questions. - Last Documented On 05/27/2024 11:30AM ; [facility] Instructions to patient Lose weight Last Documented On 5 9:06AM ; [facility] Assessments Includes: Assessments from this encounter Findings Left cuff repair - Last Documented On 05/27/2024 11:30AM ; [facility], [facility] Instructions Includes: Instructions from this encounter Instructions to patient Lose weight Last Documented On 5 9:06AM ; [facility] Medical Equipment - Implanted Devices Includes: Current Devices No Medical Equipment Recorded Medications Includes: Medications discussed during this encounter and other current Medications Current Medications (continue as prescribed) Ozempic (1 MG/DOSE) 4 MG/3ML Subcutaneous Solution Pen-injector 01/28/2024 Provider: VIV PAINTER MD Diagnosis: Last Documented On 4 12:04PM By Skylar Doan ; [facility], [facility] Lantus SoloStar 100 UNIT/ML Subcutaneous Solution Pen-injector 01/24/2024 Provider: VIV PAINTER MD Diagnosis: Last Documented On 4 12:04PM By Skylar Doan ; [facility], [facility] FreeStyle Char 2 Sensor Miscellaneous 01/20/2024 Pr ovider: VIV PAINTER MD Diagnosis: Last Documented On 4 12:04PM By Skylar Doan ; [facility], [facility] Glimepiride 4 MG Oral Tablet 01/13/2024 Provider: VIV PAINTER MD Diagnosis: Last Documented On 4 12:04PM By Skylar Doan ; [facility], [facility] metFORMIN HCl 500 MG Oral Tablet 01/10/2024 Provider : VIV PAINTER MD Diagnosis: Last Documented On 4 12:04PM By Skylar Doan ; [facility], [facility] Atorvastatin Calcium 40 MG Oral Tablet 01/09/2024 Pr ovider: VIV PAINTER MD Diagnosis: Last Documented On 4 12:04PM By Skylar Doan ; [facility], [facility] Lisinopril 20 MG Oral Tablet 12/10/2023 Provider: VIV PAINTER MD Diagnosis: Last Documented On 4 12:04PM By Skylar Doan ; [facility], [facility] Past Medications on file oxyCODONE HCl 5 MG Oral Tablet 12/26/2023 - 12/31/2023 Provider: Sai wong MD Diagnosis: 1-2 po q 4-6h prn post op pain Last Documented On 4 4:06PM By Sai Alcazar ; [facility], [facility] Ondansetron HCl 4 MG Oral Tablet 11/21/2023 - 12/01/2023 Provider: Sai wong MD Diagnosis: 1 q 8 hours prn nausea 1 q 8 hours prn post op nausea Last Documented On 4 12:37PM By Sravani Lawrence ; [facility], [facility] Benzoyl Peroxide Wash 5% External Liquid 11/21/2023 - 11/22/2023 Provider: Sai wong MD Diagnosis: use as directed by Dr. Alcazar Last Documented On 4 12:22PM By Sravani Lawrence ; [facility] Medications Administered Includes: Administered Medications from this encounter No Administered Medications Recorded Vital Signs Includes: Vital Signs from this encounter Vital Name 05/27/2024 09:06A Height (in) 70 Weight (lb) 220 Body Mass Index 31.6 Body Surface Area 2.2 Note: bfj Last Documented: On 05/27/2024 9:06AM ; [facility], [facility] Results Includes: Results discussed during this encounter No Results Recorded For Specified Dates History of Present Illness Includes: History of Present Illness from this encounter RAVINDRA Smith is a 63 year old male. - Allergy list reviewed - Problem list reviewed - Medication list reviewed Social History Description Last Updated Exercising regularly 11/17/2023 Last Documented On 5 9:06AM ; [facility], [facility] No caffeine use 11/17/2023 Last Documented On 5 9:06AM ; [facility], [facility] No recent change in diet 11/17/2023 Last Documented On 5 9:06AM ; [facility], [facility] Not a current smoker. 11/17/2023 Last Documented On 5 9:06AM ; [facility], [facility] Not using alcohol 11/17/2023 Last Documented On 5 9:06AM ; [facility], [facility] Not using drugs 11/17/2023 Last Documented On 5 9:06AM ; [facility] Smoking Status Unknown Procedures and Surgical History Surgical History Last Updated History of History of Gallbladder 2023 Last Documented On 5 9:06AM ; [facility] Medical History Includes: Medical History addressed during this encounter Description Last Updated History of diabetes mellitus 11/17/2023 Last Documented On 5 9:06AM ; [facility], [facility] History of diverticulitis of colon 11/16 Last Documented On 5 9:06AM ; [facility], [facility] History of Hypertension 11/17/2023 Last Documented On 5 9:06AM ; [facility], [facility] History of Sleep Apnea 11/17/2023 Last Documented On 5 9:06AM ; [facility] Family History Includes: Family History addressed during this encounter Description Last Updated Diabetes mellitus 11/17/2023 Last Documented On 5 9:06AM ; [facility] Family history of cancer 11/17/2023 Last Documented On 5 9:06AM ; [facility] Family history of heart disease 11/17/19 24 Last Documented On 5 9:06AM ; [facility] Review of Systems Includes: Review of Systems [...] Encounters Encounter Provider Location Date Check-In Time Check- Out Time Diagnosis Follow Up Coleman Morris PA-C [facility] B 5 9:01AM 9:16AM Insurance Includes: Active Insurance Policies Plan Name Member ID Group # Subscriber Relationship Effect cherrie Dates 1 - [employer] [facility] [id number] Ramana Smith Self Clinical Notes Includes: Clinical Notes from this encounter * Progress note Date Encounter Last Documented by 05/27/2024 Follow Up Last documented on 05/27/2024; 11:30 AM, Coleman Morris PA-C; [facility], [facility] Active Problems & Conditions - Joint Pain, [...] Findings - Vitals taken 05/27/2024 09:06 am j Height 70 in Weight 220 lbs Body [...] Care Team - VIV PAINTER MD - HEAD SCREEN WORKER
--- OUTSIDE RECORDS SUMMARY | 2024-07-08 23:33 | XMS_ITS | Clinical Summary ---
Author Organization [facility] , [facility] Address [address] [place] [address] Phone Care Team Providers Care Superintendent Horticulture Name Role Phone Inge MEZA, Sai Vivas Unavailable Unavail able INOCENCIO MEZA, VIV Unavailable [phone] Reason for Visit and Chief Complaint The Chief Complaint is: LEFT SHOULDER PAIN Problems Includes: Problems addressed during this encounter and other active Problems All Visits Onset Date Resolved Date Provider Condition S tatus Joint Pain, Localized in the Shoulder 11/17/2023 Sai Alcazar MD Active Last Documented On 4 8:34AM ; [facility], [facility] Plan of Treatment He is motion is improving pain and weakness at this point our typical postop. He has no formal restrictions he will continue physical therapy. Follow up as scheduled - Last Documented On 03/25/2024 11:11AM ; [facility], [facility] Instructions to patient Lose weight Last Documented On 4 9:47AM ; [facility], [facility] Assessments Includes: Assessments from this encounter Findings Left cuff repair - Last Documented On 03/25/2024 11:11AM ; [facility], [facility] Instructions Includes: Instructions from this encounter Instructions to patient Lose weight Last Documented On 4 9:47AM ; [facility], [facility] Medical Equipment - Implanted Devices Includes: Current Devices No Medical Equipment Recorded Medications Includes: Medications discussed during this encounter and other current Medications Current Medications (continue as prescribed) Ozempic (1 MG/DOSE) 4 MG/3ML Subcutaneous Solution Pen-injector 01/28/2024 Provider: VIV PAINTER MD Diagnosis: Last Documented On 4 12:04PM By Skylar Doan ; [facility], [facility] Lantus SoloStar 100 UNIT/ML Subcutaneous Solution Pen-injector 01/24/2024 Provider: VIV PAINTER MD Diagnosis: Last Documented On 4 12:04PM By Skylar Doan ; [facility], [facility] FreeStyle Char 2 Sensor Miscellaneous 01/20/2024 Pr ovider: VIV PAINTER MD Diagnosis: Last Documented On 4 12:04PM By Skylar Doan ; [facility], [facility] Glimepiride 4 MG Oral Tablet 01/13/2024 Provider: VIV PAINTER MD Diagnosis: Last Documented On 4 12:04PM By Skylar Doan ; [facility], [facility] metFORMIN HCl 500 MG Oral Tablet 01/10/2024 Provider : VIV PAINTER MD Diagnosis: Last Documented On 4 12:04PM By Skylar Doan ; [facility], [facility] Atorvastatin Calcium 40 MG Oral Tablet 01/09/2024 Pr ovider: VIV PAINTER MD Diagnosis: Last Documented On 4 12:04PM By Skylar Doan ; [facility], [facility] Lisinopril 20 MG Oral Tablet 12/10/2023 Provider: VIV PAINTER MD Diagnosis: Last Documented On 4 12:04PM By Skylar Doan ; [facility], [facility] Past Medications on file oxyCODONE HCl 5 MG Oral Tablet 12/26/2023 - 12/31/2023 Provider: Sai wong MD Diagnosis: 1-2 po q 4-6h prn post op pain Last Documented On 4 4:06PM By Sai Alcazar ; [facility], [facility] Ondansetron HCl 4 MG Oral Tablet 11/21/2023 - 12/01/2023 Provider: Sai wong MD Diagnosis: 1 q 8 hours prn nausea 1 q 8 hours prn post op nausea Last Documented On 4 12:37PM By Sravani Lawrence ; [facility], [facility] Benzoyl Peroxide Wash 5% External Liquid 11/21/2023 - 11/22/2023 Provider: Sai wong MD Diagnosis: use as directed by Dr. Alcazar Last Documented On 4 12:22PM By Sravani Lawrence ; [facility] Medications Administered Includes: Administered Medications from this encounter No Administered Medications Recorded Vital Signs Includes: Vital Signs from this encounter Vital Name 03/25/2024 09:47A Height (in) 70 Weight (lb) 220 Body Mass Index 31.6 Body Surface Area 2.2 Note: ab Last Documented: On 03/25/2024 9:47AM ; [facility] Results Includes: Results discussed during this encounter No Results Recorded For Specified Dates History of Present Illness Includes: History of Present Illness from this encounter RAVINDRA Smith is a 63 year old male. - Allergy list reviewed - Problem list reviewed - Medication list reviewed Social History Description Last Updated Exercising regularly 11/17/2023 Last Documented On 4 9:47AM ; [facility] No caffeine use 11/17/2023 Last Documented On 4 9:47AM ; [facility] No recent change in diet 11/17/2023 Last Documented On 4 9:47AM ; [facility] Not a current smoker. 11/17/2023 Last Documented On 4 9:47AM ; [facility] Not using alcohol 11/17/2023 Last Documented On 4 9:47AM ; [facility] Not using drugs 11/17/2023 Last Documented On 4 9:47AM ; [facility] Smoking Status Unknown Procedures and Surgical History Includes: Procedures from this encounter Procedures Code Diagnosis Performing Provider Service L ocation Service Date an X-ray was performed 02613 Last Documented On 4 9:47AM ; [facility] an MRI was performed [id number] Last Documented On 4 9:47AM ; [facility] Surgical History Last Updated History of History of Gallbladder 2023 Last Documented On 4 9:47AM ; [facility] Medical History Includes: Medical History addressed during this encounter Description Last Updated History of diabetes mellitus 11/17/2023 Last Documented On 4 9:47AM ; [facility] History of diverticulitis of colon 11/16 Last Documented On 4 9:47AM ; [facility] History of Hypertension 11/17/2023 Last Documented On 4 9:47AM ; [facility], [facility] History of Sleep Apnea 11/17/2023 Last Documented On 4 9:47AM ; [facility], [facility] Family History Includes: Family History addressed during this encounter Description Last Updated Diabetes mellitus 11/17/2023 Last Documented On 4 9:47AM ; [facility], [facility] Family history of cancer 11/17/2023 Last Documented On 4 9:47AM ; [facility], [facility] Family history of heart disease 11/17/19 Last Documented On 4 9:47AM ; [facility], [facility] Review of Systems Includes: Review of [...] Time Diagnosis Follow Up Coleman Morris PA-C [facility] B 4 9:46AM 10:05AM Insurance Includes: Active Insurance Policies Plan Name Member ID Group # Subscriber Relationship Effect cherrie Dates 1 - [facility] [id number] Ramana Smith Self Clinical Notes Includes: Clinical Notes from this encounter * Progress note Date Encounter Last Documented by 03/25/2024 Follow Up Last documented on 03/25/2024; 11:11 AM, Coleman Morris PA-C; [facility], [facility] Active Problems & Conditions - [...] Care Team - VIV PAINTER MD - FIELD ASSOCIATE
== END 2024-07-08 23:59 | disposition home or self-care (01) ==
LOC: RAD 14:12
PROVIDERS: PCP Physician Assistant; Visit Provider Physician Assistant
DX: J40 Bronchitis, not specified as acute or chronic (principal)
CPT/HCPCS: 71046

== ENCOUNTER 2024-08-14 17:23 | Emergency (ER) | payer OTHER, SELFPAY ==
--- NOTE | 2024-08-14 17:30 | ED_ITS ---
<Statement entered by Jimmy Thomas MD - 08/14/24 23:51> I was consulted by the CATRACHITA, and we discussed the complexity of the problems being addressed. I approved the treatment and management plan for this patient's care in the emergency department, thus performing a substantive portion of the medical decision making. Patient has a noninfected 3 mm stone at the UVJ which is very likely to pass given size. Cefdinir given out of abundance of precaution given leukocytosis. Patient has slight elevated creatinine that was volume resuscitated in the emergency department and he will follow-up with PCP in the coming days. Patient was appropriate for outpatient management at this time. Jimmy Thomas MD Discharge Plan Disposition Patient Disposition: Home, Self-Care Condition: Good Prescriptions Prescriptions: New cefdinir 300 mg capsule 300 mg PO BID 5 Days Qty: 10 0RF tamsulosin 0.4 mg capsule 0.4 mg PO HS Qty: 10 0RF oxycodone 5 mg tablet 5 mg PO Q8H PRN (Reason: pain) Qty: 9 0RF Rx Instructions: Only take for breakthrough pain after Tylenol and ibuprofen have failed No Action glimepiride 4 mg tablet 4 mg PO BID 30 Days Qty: 60 Patient Comments: atorvastatin 40 mg tablet 40 mg PO DAILY 30 Days Qty: 30 Patient Comments: lisinopril 20 mg tablet 20 mg PO BID 30 Days Qty: 30 Patient Comments: metformin 500 mg tablet 500 mg PO DAILY insulin glargine [Lantus U-100 Insulin] 100 unit/mL Solution 3 unit SQ DAILY Referrals Follow up/Referrals: Malini Dumont PA [Primary Care Provider] - See instructions Stephen Wayne MD [Referring] - See instructions Activity Restrictions/Add. Instructions Additional Instructions/Restrictions: I have sent an antibiotic and pain medication into your pharmacy. Please take your antibiotic till it is gone. I have also referred you to urology. Please call on Friday to make your follow-up appointment. I have also sent in additional medication and that will help pass the kidney stone. Please strain all of your urine. If you have any persistent new or worsening signs or symptoms follow-up with your PCP return to the ER as needed. Clinical Impressions Clinical Impression: Ureterolithiasis, Complicated UTI (urinary tract infection) Print Language Print Language: Austrian Discharge ED Provider: Thomas,Jimmy G General Adult HPI General Chief complaint: Abdominal Pain Stated complaint: abdominal pain,vomiting Time Seen by Provider: 08/14/24 17:30 History of Present Illness HPI narrative: Patient presents for evaluation of left lower quadrant abdominal pain. Patient reports that he has had acute left lower quadrant pain all day today. He denies any fever chills hemoptysis hematochezia melena has nausea but no vomiting or diarrhea. Pain does not radiate. He does have a previous history of diverticulosis as well as kidney stone. Related Data Home Medications ?Medication ?Instructions ?Recorded ?Confirmed atorvastatin 40 mg tablet 40 mg PO DAILY Cholesterol 30 days 06/23/17 04/25/23 ##30 glimepiride 4 mg tablet 4 mg PO BID Diabetes 30 days ##60 06/23/17 04/25/23 lisinopril 20 mg tablet 20 mg PO BID blood pressure 30 06/23/17 04/25/23 days ##30 metformin 500 mg tablet 500 mg PO DAILY blood sugar 05/25/19 04/25/23 insulin glargine 100 unit/mL 3 unit SQ DAILY 04/29/23 04/29/23 subcutaneous solution (Lantus U-100 Insulin) Previous Rx's ?Medication ?Instructions ?Recorded cefdinir 300 mg capsule 300 mg PO BID 5 days #10 caps 08/14/24 oxycodone 5 mg tablet 5 mg PO Q8H PRN pain #9 tabs 08/14/24 tamsulosin 0.4 mg capsule 0.4 mg PO HS #10 caps 08/14/24 Allergies Allergy/AdvReac Type Severity Reaction Status Date / Time banana Allergy Intermediate Verified 04/29/23 06:[address] [facility] Disclaimer: The information contained in this section may have been updated after the patient was seen, as this information can be updated by other users. Medical History (Updated 08/14/24 @ 19:47 by ANH Danielson) History of sleep apnea History of hyperlipidemia History of hypertension History of diabetes mellitus Surgical History History of cholecystectomy History of vasectomy History of colonoscopy Family History Other Family history of diabetes mellitus type II Family history of myocardial infarction Social History Smoking Status: Never smoker second hand exposure: No alcohol intake: never substance use type: denies use current occupational status: employed Travel in the last 8 weeks?: None household members: significant other housing: house marital status: current occupation: lawn care current occupational exposures/hazards: Yes caffeine: Yes Have you lived/traveled outside US in past 30 days?: No Contact w/someone who lives/traveled outside US past 30 days?: No Exposure to someone with infectious disease in past 14 days?: No Do you have a fever (greater than 100.4 F or 38 C)?: No Have you tested positive for COVID-19?: No Exposed to someone with COVID-19 in past 14 days?: No Do you have a sore throat?: No Do you have a cough?: No Do you have any weakness?: No Do you have any diarrhea?: No Are you experiencing any unusual bleeding?: No Do you have any muscle aches/pain?: No Do you have any abdominal pain?: No Are you experiencing loss of taste or smell?: No Other Medical History Have you received the Flu Vaccine for this season: No Have you received the Pneumonia Vaccine: No ROS Obtained: Yes Systems reviewed as appropriate & no additional complaints except as documented Physical Exam General General appearance: alert Respiratory Respiratory exam: Present normal lung sounds bilaterally Cardiovascular Cardiovascular exam: Present regular rate Abdominal Exam Abdominal exam: Absent normal bowel sounds Neurological Exam Neurological exam: Present alert and oriented X3 Medical Decision Making Medical Records Medical records reviewed: Yes I reviewed the patient's medical records. Screening: Per USPSTF and CDC recommendations, given the prevalence of disease in our region, it is our hospital?s policy to screen for HIV and viral Hepatitis for all patients aged 18 and over and those with ongoing risk factors. Reji Inquiry Pt receiving controlled substance: No Vital Signs: 08/14/24 17:47 08/14/24 19:00 08/14/24 19:30 Temperature 97.5 F L Temperature Source Oral Pulse Rate 92 H 98 H Pulse Rate [Right] 97 H Respiratory Rate 20 Blood Pressure 128/74 126/76 Blood Pressure [Right Arm] 177/104 H Blood Pressure Mean [Right Arm] 128 Blood Pressure Source Blood Pressure Position 02 Sat by Pulse Oximetry 96 96 95 Oxygen Delivery Method Room Air 08/14/24 19:56 Temperature 97.9 F Temperature Source Oral Pulse Rate 74 Pulse Rate [Right] Respiratory Rate 16 Blood Pressure 122/74 Blood Pressure [Right Arm] Blood Pressure Mean [Right Arm] Blood Pressure Source Automatic Cuff Blood Pressure Position Supine 02 Sat by Pulse Oximetry Oxygen Delivery Method Room Air Lab Data Lab results reviewed: Yes I reviewed the patient's lab results. Lab Results 08/14/24 17:27: Urine Color Yellow, Urine Appearance Clear, Urine pH 5.5, Ur Specific [place] >= 1.030, Urine Protein Negative, Urine Glucose (UA) Trace, Urine Ketones Negative, Urine Blood 2+ A, Urine Nitrate Negative, Urine Bilirubin Negative, Urine Urobilinogen 0.2, Ur Leukocyte Esterase Negative, Urine RBC 5-10, Urine WBC 5-10, Ur Squamous Epith Cells Occasional, Urine Bacteria Trace 08/14/24 17:35: WBC 15.8 H, RBC 4.91, Hgb 13.1 L, Hct 40.8 L, MCV 83.1, MCH 26.7 L, MCHC 32.1, RDW 15.6, Plt Count 342, MPV 9.7, Neut % (Auto) 78.4, Lymph % (Auto) 12.2, [place] % (Auto) 6.1, Eos % (Auto) 2.3, Baso % (Auto) 0.5, Neut # (Auto) 12.4 H, Lymph # (Auto) 1.9, [place] # (Auto) 1.0, Eos # (Auto) 0.4, Baso # (Auto) 0.1, Sodium 140, Potassium 4.8, Chloride 104, Carbon Dioxide 26, Anion Gap 14.8, BUN 19, Creatinine 1.40 H, Estimated Creat Clear 70, Estimated GFR 51 L, Est GFR ( Amer) 62, Glucose 177 H, Lactate 1.8, Calcium 9.6, Total Bilirubin 0.4, AST 31, ALT 33, Alkaline Phosphatase 77, Total Protein 7.8, Albumin 4.8, Globulin 3.0, Albumin/Globulin Ratio 1.6, Lipase 190, Procalcitonin 0.088, HCV Ab ERIN w/Rflx PCR Qn Negative, HIV Ag/Ab Combo Qual Negative 08/14/24 17:35 08/14/24 17:35 Orders (Tests/Meds): ED MEDICATIONS Discontinued Medications Generic Name Dose Route Start Last Admin Trade Name Juan Manuel PRN Reason Stop Dose Admin Acetaminophen 1,000 mg 08/14/24 17:34 08/14/24 17:39 Acetaminophen 500mg Tab PO 08/14/24 17:35 1,000 mg ONCE ONE Administration Sodium Chloride 1,000 mls @ 999 mls/hr 08/14/24 17:34 08/14/24 17:40 Sod Chlor 0.9% 1000ml Bag IV 08/14/24 18:34 999 mls/hr .Q1H1M ONE Administration Iopamidol 75 ml 08/14/24 18:08 08/14/24 18:09 Iopamidol-370 (76%);100ml Bottle IV 08/14/24 18:09 75 ml ONCE ONE Administration Ketorolac Tromethamine 15 mg 08/14/24 17:34 08/14/24 17:40 Ketorolac 30mg/Ml Vial IV 08/14/24 17:35 15 mg ONCE ONE Administration Ondansetron HCl 4 mg 08/14/24 17:34 08/14/24 17:39 Ondansetron 4mg/2ml Vial IV 08/14/24 17:35 4 mg ONCE ONE Administration Sodium Chloride 10 ml 08/14/24 18:08 08/14/24 18:09 Sodium Chloride 0.9% 10ml Syr (Rad Only) IV 08/14/24 18:09 10 ml ONCE ONE Administration ORDERS Category Date Time Status CT abdomen pelvis w con Stat Cat Scan 08/14/24 17:34 Completed CBC w/Auto Diff [Complete Blood Count Auto Diff] Stat Lab 08/14/24 17:35 Completed CMP [Comprehensive Metabolic Panel] Stat Lab 08/14/24 17:35 Completed HIV Combo Stat Lab 08/14/24 17:35 Completed Hepatitis C Ab Qual. W/ RFX Stat Lab 08/14/24 17:35 Completed Lactic Acid Stat Lab 08/14/24 17:35 Completed Lipase Stat Lab 08/14/24 17:35 Completed Procalcitonin Stat Lab 08/14/24 17:35 Completed UA [Urinalysis and Microscopic] Stat Lab 08/14/24 17:27 Completed Medical Decision Narrative: In summary patient is a 63-year-old male who presents to the emergency department for evaluation of lower quadrant abdominal pain. Patient is hemodynamically stable with a blood pressure 177/104 pulse 97 normal sinus rhythm on the bedside monitor breathing 20 times a minute satting 96% on room air upon arrival, afebrile at 97.5. Zickel exam is remarkable for mild left lower quadrant tenderness to palpation with no rebound or guarding no rigidity. Bowel sounds normal active.. Differential diagnosis includes diverticulitis versus cystitis versus kidney stone versus pyelonephritis etc. Initial workup will be conducted with hematologic labs CT scan abdomen pelvis. Initial interventions include crystalloid bolus Toradol Tylenol Zofran. Initial workup reviewed by me shows a white count of 15.8 normal H&H with an absolute neutrophil count of 12.4 creatinine is 1.4 BUN is 19 GFR is 51 procalcitonin is 0.088 and the remainder of his hematologic labs are nonactionable urinalysis shows 2+ blood no evidence of UTI currently and my informal interpretation of his CT scan abdomen pelvis that shows left hydronephrosis with perinephric stranding and a 3 mm approximately left UVJ stone and no other acute processes noted.. Upon repeat evaluation patient reported complete resolution of his symptoms after initial intervention. Given this patient is appropriate for discharge with a prescription for Bactrim tamsulosin referral to urology and strict return precautions. Critical Care Critical Care Time Critical Care Time: No
--- NOTE | 2024-08-14 17:34 | CT_ITS ---
PROCEDURE INFORMATION: Exam: CT Abdomen And Pelvis With Contrast Exam date and time: 08/14/2024 6:09 PM Age: 63 years old Clinical indication: Abdominal tenderness; Additional info: Left lower quadrant abdominal pain TECHNIQUE: Imaging protocol: Computed tomography of the abdomen and pelvis with contrast. Radiation optimization: All CT scans at this facility use at least one of these dose optimization techniques: automated exposure control; mA and/or kV adjustment per patient size (includes targeted exams where dose is matched to clinical indication); or iterative reconstruction. Contrast material: ISOVUE; Contrast volume: 75 ml; Contrast route: IV; COMPARISON: CT ABDOMEN PELVIS W CON 03/01/2022 10:51 AM FINDINGS: Liver: Mild fatty infiltration. No mass. Gallbladder and biliary ducts: Surgically absent gallbladder. No biliary ductal dilatation. Pancreas: Normal. No ductal dilation. Spleen: Normal. No splenomegaly. Adrenal glands: Normal. No mass. Kidneys and ureters: 0.3 cm left ureterovesicular junction calculus with proximal hydronephroureter. Stomach and bowel: Colonic diverticula without pericolonic fat stranding. Nonobstructive pattern. Appendix: No evidence of appendicitis. Intraperitoneal space: Unremarkable. No free air. No significant fluid collection. Vasculature: Atherosclerotic calcification of aortoiliac arteries without aneurysm. Lymph nodes: Unremarkable. No enlarged lymph nodes. Urinary bladder: Unremarkable as visualized. Reproductive: Unremarkable as visualized. Bones/joints: Unremarkable. No acute fracture. Soft tissues: Unremarkable. IMPRESSION: 1. Left ureterovesicular junction calculus with proximal hydronephroureter. 2. Colonic diverticulosis. 3. Mild fatty liver infiltration.
[2024-08-14] MEDS: ONDANSETRON 4MG/2ML VIAL 4 MG IV (17:39)
[2024-08-14] MEDS: ACETAMINOPHEN 500MG TAB 1000 MG PO (17:39)
[2024-08-14] MEDS: KETOROLAC 30MG/ML VIAL 15 MG IV (17:40)
[2024-08-14] MEDS: 0.9 % SODIUM CHLORIDE 1000ML 1,000 ML 999 ML IV (17:40)
[2024-08-14 17:41] LABS: Microscopic, Urine URINE MICROSCOPIC (MICROSCOPIC)
[2024-08-14 17:47] VITALS: BP 177/104; PULSE 97; RESP 20; TEMP 36.4; O2SAT 96; BMI 28.7
[2024-08-14 17:52] LABS: Appearance,Urine CLEAR (Clear); Bilirubin,Urine Negative (Negative); Blood, Urine 2+ (Negative); Color,Urine YELLOW (Yellow); Glucose,Urine (UA) TRACE (Negative); Ketones,Urine Negative (Negative); Leukocyte Esterase,Urine Negative (Negative); Nitrate,Urine Negative (Negative); PH,Urine 5.5 (5.0-8.5); Protein,Urine Negative (Negative); Urobilinogen,Urine 0.2 EU/dl (0.2)
[2024-08-14 17:55] LABS: Specific Gravity, Urine >= 1.030 (1.005-1.030)
[2024-08-14 17:56] LABS: Basophils # 0.1 K/mm3 (0-0.2); Basophils % 0.5 % (0.1-2.0); Eosinophils # 0.4 Kmm3 (0.0-0.4); Eosinophils % 2.3 % (0.1-12.0); Hematocrit 40.8 % (42.0-52.0); Hemoglobin 13.1 g/dL (14.1-18.0); Immature Granulocytes # 0.08 10^3uL; Immature Granulocytes % 0.5 %; Lymphocytes # 1.9 K/mm3 (0.7-4.5); Lymphocytes % 12.2 % (10-50); Mean Corpuscular HGB Conc 32.1 g/dL (31.8-35.4); Mean Corpuscular Hemoglobin 26.7 pg (27.0-31.2); Mean Corpuscular Volume 83.1 fl (80-94); Mean Platelet Volume 9.7 fl (7.4-10.4); Monocytes % 6.1 % (1.7-9.3); Neutrophils # 12.4 K/mm3 (1.8-7.8); Neutrophils % 78.4 % (37.0-80.0); Nucleated Red Blood Cells # 0 10^3/uL; Nucleated Red Blood Cells % 0 %; Platelet Count 342 K/mm3 (142-424); Red Blood Count 4.91 M/mm3 (4.60-6.20); Red Cell Distribution Width 15.6 % (11.5-17.5); Red Cell Distribution Width-SD 47.4 fL; White Blood Count 15.8 K/mm3 (4.8-10.8)
[2024-08-14 17:57] LABS: Alanine Aminotransferase 33 U/L (12-78); Albumin Level 4.8 g/dl (3.5-5.0); Albumin/Globulin Ratio 1.6 (1.1-1.8); Alkaline Phosphatase 77 U/L (38-126); Anion Gap 14.8 mEq/L (5-15); Aspartate Amino Transferase 31 U/L (17-59); Bilirubin,Total 0.4 mg/dl (0.2-1.3); Blood Urea Nitrogen 19 mg/dl (9-20); Calcium 9.6 mg/dl (8.4-10.2); Carbon Dioxide 26 mmol/L (22.0-30.0); Chloride 104 mmol/L (98-107); Creatinine Clearance Estimated 70 mL/min (50-200); Estimated Glomerular Filt Rate 51 ml/min (>60); GFR (African American) 62 ML/MIN (>60); Glucose 177 mg/dl (74-100); Lactic Acid 1.8 mmol/L (0.7-2.1); Lipase 190 U/L (23-300); Potassium 4.8 mmoL/L (3.5-5.1); Sodium 140 mmol/L (136-145); Total Protein,Serum 7.8 g/dl (6.3-8.2)
[2024-08-14 18:01] LABS: Squamous Epithelial Cell,Urine Occasional #/hpf (0-5)
[2024-08-14 18:02] LABS: Bacteria,Urine Trace /lpf
[2024-08-14] MEDS: IOPAMIDOL-370 (76%);100ML BOTTLE 75 ML IV (18:09)
[2024-08-14] MEDS: SODIUM CHLORIDE 0.9% 10ML SYR (RAD ONLY) 10 ML IV (18:09)
[2024-08-14 18:13] LABS: Procalcitonin 0.088 ng/mL (0.0-2.0)
[2024-08-14 18:59] LABS: HIV Combo NEGATIVE (Negative)
[2024-08-14 19:00] VITALS: BP 128/74; PULSE 92; O2SAT 96
[2024-08-14 19:07] LABS: Hepatitis C Ab Qual. W/ RFX NEGATIVE (Negative)
[2024-08-14 19:30] VITALS: BP 126/76; PULSE 98; O2SAT 95
[2024-08-14 19:56] VITALS: BP 122/74; PULSE 74; RESP 16; TEMP 36.6; O2SAT 97
== END 2024-08-14 19:57 | disposition home or self-care (01) ==
PROVIDERS: Physician Assistant; Emergency Provider Emergency Medicine; PCP Physician Assistant
DX: R10.32 Left lower quadrant pain (principal); N13.0 Hydronephrosis with ureteropelvic junction obstruction; N13.4 Hydroureter; N39.0 Urinary tract infection, site not specified
CPT/HCPCS: 74177; 80053; 81001; 83605; 83690; 84145; 85025; 86803; 87389; 96361; 96374; 96375; 99285; J1885; J2405; J7030; Q9967

== ENCOUNTER 2024-11-01 15:59 | Outpatient (CLI) | payer OTHER, SELFPAY ==
--- NOTE | 2024-11-01 16:00 | CT_ITS ---
PROCEDURE INFORMATION: Exam: CT Abdomen And Pelvis With Contrast Exam date and time: 11/01/2024 5:18 PM Age: 64 years old Clinical indication: Abdominal pain and other: Pelvic; Other: Rlq; Additional info: Acute abd pain, rebound tenderness, rlq TECHNIQUE: Imaging protocol: Computed tomography of the abdomen and pelvis with contrast. Radiation optimization: All CT scans at this facility use at least one of these dose optimization techniques: automated exposure control; mA and/or kV adjustment per patient size (includes targeted exams where dose is matched to clinical indication); or iterative reconstruction. Contrast material: ISOVUE; Contrast volume: 75 ml; Contrast route: IV; COMPARISON: CT ABDOMEN PELVIS W CON 08/14/2024 6:09 PM FINDINGS: Lungs: Dependent bilateral lung base opacities favor atelectasis. Liver: There is diffuse hypoattenuation of the liver compatible with moderate hepatic steatosis. Gallbladder and biliary ducts: There are surgical clips within the gallbladder fossa. Pancreas: Normal. No ductal dilation. Spleen: Multiple benign-appearing calcific densities of the spleen. Adrenal glands: Normal. No mass. Kidneys and ureters: Nonobstructive bilateral nephrolithiasis define by multiple bilateral renal calcific densities the largest measuring up to 2 mm. Stomach and bowel: Diverticula are scattered throughout the colon without inflammatory changes. Mild thickening of the left upper quadrant small bowel may represent mild enteritis. Appendix: The appendix is normal in caliber without wall thickening. Intraperitoneal space: Unremarkable. No free air. No significant fluid collection. Vasculature: Moderate calcific atherosclerotic disease of the abdominal aorta without aneurysmal dilatation is present. Moderate calcific atherosclerotic disease of the celiac axis, SMA, and renal artery origins resulting in mild stenosis. Lymph nodes: Unremarkable. No enlarged lymph nodes. Urinary bladder: Unremarkable as visualized. Reproductive: Unremarkable as visualized. Bones/joints: Mild loss of intervertebral disc space with degenerative changes involving lower thoracic and lumbar spine. Soft tissues: Normal. IMPRESSION: Mild thickening of the left upper quadrant small bowel may represent mild enteritis.
[2024-11-01 16:02] LABS: Hematocrit 37.0 % (42.0-52.0); Hemoglobin 11.7 g/dL (14.1-18.0); Immature Granulocytes % 0.4 %; Mean Corpuscular HGB Conc 31.6 g/dL (31.8-35.4); Mean Corpuscular Hemoglobin 26.1 pg (27.0-31.2); Mean Corpuscular Volume 82.4 fl (80-94); Nucleated Red Blood Cells % 0 %; Platelet Count 310 K/mm3 (142-424); Red Blood Count 4.49 M/mm3 (4.60-6.20); Red Cell Distribution Width-SD 45.0 fL; White Blood Count 10.8 K/mm3 (4.8-10.8)
--- OUTSIDE RECORDS SUMMARY | 2024-11-01 16:02 | XMS_ITS | Clinical Summary ---
Author Organization [facility] Address [address] [place] [address] Care Team Providers Care Dumb Waiter Operator Name Role Phone Jose R Tellez MD Primary Care Provider +1- [phone] Allergies Active Allergy Reactions Criticality Noted Date Comments Banana Hives High 04/29/2023 Medications glimepiride (Amaryl) 4 MG tablet Take 1 tablet (4 mg) by mouth 1 (one) time each day. 07/19/2019 Active metFORMIN XR (Glucophage-XR) 500 MG 24 hr tablet TAKE 2 TABLET Twice daily 07/19/2019 Active lisinopril 20 MG tablet Take 1 tablet (20 mg) by mouth 1 (one) time each day. 07/19/2019 Active atorvastatin (Lipitor) 40 MG tablet Take 1 tablet (40 mg) by mouth 1 (one) time each day. 07/19/2019 Active insulin glargine (Lantus SoloStar) 100 UNIT/ML injection pen Active Family History Medical History Relation Name Comments Cancer Father Jonas Smith Diabetes Father Jonas Smith Diabetes Mother Tiana mSith Coronary artery disease Other 1 Diabetes Other 2 Hyperlipidemia Other 3 Hypertension Other 4 Conversions - Other Other 5 FH: hear t attack Relation Name Status Comments Father Joans Smith Mother Tiana Smith Other 1 Other 2 Other 3 Other 4 Other 5 Social History Tobacco Use Types Packs/Day Years Used Date Smoking Tobacco: Former Cigarettes 2 30 Smokeless Tobacco: Never Tobacco Cessation:Counseling Given: Not Answered Alcohol Use Standard Drinks/Week Comments No 0 (1 standard drink = 0.6 oz pur e alcohol) PHQ-2 Answer Date Recorded Patient Health Questionnaire-2 Score 0 10/08/2023 Sex and Gender Information Value Date Recorded Sex Assigned at Not on file Legal Sex Male 8:42 PM EDT Gender Identity Not on file Sexual Orientation Not on file Last Filed Vital Signs Vital Sign Reading Time Taken Comments Blood Pressure 149/85 10/08/2023 11:35 AM EDT Pulse 112 10/08/2023 11:35 AM EDT Temperature 36.7 C (98.1 F) 08/13/2023 11:26 AM EDT Respiratory Rate - - Oxygen Saturation 94% 10/08/2023 11:35 AM EDT Inhaled Oxygen Concentration - - Weight 99.8 kg (220 lb) 10/08/2023 11:35 AM EDT Height 177.8 cm (5' 10 ) 10/08/2023 11:35 AM EDT Body Mass Index 31.57 10/08/2023 11:35 AM EDT Plan of Treatment Health Maintenance Due Date Last Done Comments [facility]-HIV Screening 1961 [facility]-Hepatitis C Screening 1961 [facility]-/Child/Adol SDOH Screenings 1961 [facility]- SDOH Screenings 09/29/1979 [facility]-Adult SDOH Screenings 09/29/1979 [facility]-DTaP,Tdap,and Td Vaccine s (1 - Tdap) 1980 CT Colonography 2006 Colonoscopy 2006 FIT-DNA 2006 FIT 2006 FOBT 2006 Sigmoidoscopy 2006 [facility]-Colorectal Cancer Screening 2006 [facility]-Pneumococcal Vaccine: 50 + Years (1 of 1 - PCV) 09/29/2011 [facility]-Zoster Vaccines (1 of 2) 09/29/2011 [id number] Vaccine (2 - 20 24-25 season) 2023 01/10/2023 [facility]-Depression Screening 10/07/2024 10/08/2023 [facility]-Influenza Vaccine (#1) 2024 [facility]-RSV Vaccine: 60+ Years o r (1 - 1-dose 75+ series) 2036 [facility]-Obesity Intervention Completed 08/13/2023 HPV Vaccines Aged Out No longer eligi ble based on patient's age to complete this topic [facility]-HIB Vaccines Aged Out No longer e ligible based on patient's age to complete this topic [facility]-Hepatitis A Vaccines Aged Out No longer eligible based on patient's age to complete this topic [facility]-IPV Vaccines Aged Out No longer e ligible based on patient's age to complete this topic [facility]-Rotavirus Vaccines Aged Out No lo nger eligible based on patient's age to complete this topic Additional Health Concerns Infection Onset Date Last Indicated MRSA 08/13/2023 08/13/2023 Insurance [place] [id number] [employer] Care Teams Dumb Waiter Operator Relationship Specialty Start Date End Date Jose R Tellez MD [address] [place] [address] [place] [id number] PCP - General 08/11/20
--- OUTSIDE RECORDS SUMMARY | 2024-11-01 16:03 | XMS_ITS | Clinical Summary ---
Author Organization [facility] Address [address] [place] [address] Care Team Providers Care Com Writer Name Role Phone Jose R Tellez MD Primary Care Provider Allergies Active Allergy Reactions Criticality Noted Date Comments Banana Hives Medium 12/05/2023 Medications ondansetron (ZOFRAN) 4 MG tablet Take 1 tablet by mouth Every 8 (Eight) Hours As Needed for post-op nausea 30 tablet 12/05/2023 10:51 AM EDT 4 Active glimepiride (AMARYL) 4 MG tablet Take 1 tablet by mouth Every 12 (Twelve) Hours. 4 Active Lantus SoloStar 100 UNIT/ML injection pen Inject 20 Units under the skin into the appropriate area as directed 2 (Two) Times a Day. Active lisinopril (PRINIVIL,ZESTR IL) 20 MG tablet Take 0.5 tablets by mouth 2 (Two) Times a Day. 4 Active metFORMIN (GLUCOPHAGE) 500 MG tablet Take 2 tablets by mouth Every 12 (Twelve) Hours. 4 Active Ozempic, 0.25 or 0.5 MG/DOSE, 2 MG/3ML solution pen-injector Inject 0.25 mg under the skin into the appropriate area as directed 1 (One) Time Per Week. Friday 4 Active oxyCODONE (ROXICODONE) 5 MG immediate release tablet Take 1 tablet by mouth Every 6 (Six) Hours As Needed for Moderate Pain. 40 tablet 12/19/2023 2:10 PM EDT 4 Active Active Problems No known active problems Family History Medical History Relation Name Comments Heart disease Father Heart disease Mother Other Sister STATUS UNKNWON- ADDICT Relation Name Status Comments Father Mother Sister Social History Tobacco Use Types Packs/Day Years Used Date Smoking Tobacco: Former Cigarettes Q uit: 01/2010 Smokeless Tobacco: Never Tobacco Cessation:Counseling Given: Not Answered Alcohol Use Standard Drinks/Week Comments Yes 0 (1 standard drink = 0.6 oz pur e alcohol) rare Abuse Screen Answer Date Recorded Feels Unsafe at Home or Work/School no 12/19/2023 Feels Threatened by Someone no 11/30 Does Anyone Try to Keep You From Having Contact with Others or Doing Things Outside Your Home? no 12/19/2023 Physical Signs of Abuse Present no 12/19/2023 Housing Stability Answer Date Recorded Current Living Arrangements home 11/30 Potentially Unsafe Housing Conditions Not on gus e 12/19/2023 Family and Community Support Answer [place] e Recorded Help with Day-to-Day Activities Not on file 01/07/2023 Lonely or Isolated Not on file 01/07/2023 Employment Answer Date Recorded Do you want help finding or keeping work or a celeste b? Not on file 01/07/2023 Disabilities Answer Date Recorded Difficulty Concentrating, Remembering or Making Decisions no 12/19/2023 Difficulty Managing Errands Independently no 12/19/2023 Education Answer Date Recorded Help with school or training? Not on file Preferred Language Guamanian 12/05/2023 Sex and Gender Information Value Date Recorded Sex Assigned at Not on file Legal Sex Male 1:42 PM EDT Gender Identity Not on file Sexual Orientation Not on file Occupation Industry Job Start Date Job End Date [employer] Not on file Not on file Not on file Last Filed Vital Signs Vital Sign Reading Time Taken Comments Blood Pressure 127/79 12/19/2023 2:45 PM EDT Pulse 94 12/19/2023 2:45 PM EDT Temperature 36.5 C (97.7 F) 12/19/2023 2:45 PM EDT Respiratory Rate 16 12/19/2023 2:45 PM EDT Oxygen Saturation 91% 12/19/2023 2:45 PM EDT Inhaled Oxygen Concentration - - Weight 104 kg (229 lb) 12/19/2023 10:39 AM EDT Height 177.8 cm (5' 10 ) 12/19/2023 10:39 AM EDT Body Mass Index 32.86 12/19/2023 10:39 AM EDT Plan of Treatment Health Maintenance Due Date Last Done Comments TDAP/TD VACCINES (1 - Tdap) 1980 COLOGUARD 2006 COLON CANCER SCREENING 5 YEAR SIGMOIDOSCOPY 2006 COLONOSCOPY [address]ER SCREENING [address] COLONOGRAPHY 2006 FECAL OCCULT BLOOD TEST 2006 FIT Testing (1 year) 2006 Pneumococcal Vaccine 50+ (1 of 1 - PCV) 09/29/2011 ZOSTER VACCINE (1 of 2) 09/29/2011 ANNUAL PHYSICAL 05/09/2022 HEPATITIS C SCREENING 05/09/2022 COVID-19 Vaccine ( - season) 2023 INFLUENZA VACCINE 12/29/2024 Goals Goal Patient Goal Type Associated Problems Recent Progress Patient-Stated? Author Autogenera anyi Goal Care Plan Autogenerated Problem No Sid, Abdias Rao Rep Medical Devices Implanted Type Area Greek Professor Device Identifier Shelf Expiration Date Model / Serial / Lot Sut Fw #2 W/Tpr Ndl 04/01 Cir 38in 97cm 26.5mm Azam - [id number] Implanted:Qty: 1 on 12/19/2023 by Sai Alcazar MD at [facility] Implant Left: Shoulder ARTHREX 11/29/2027 [id number] / / [id number] Sut/Anch Biocomp Swivelock Sp 1.3mm/Suturetape 5.5x24.5mm - [id number] Implanted:Qty: 1 on 12/19/2023 by Sai Alcazar MD at [facility] Implant Left: Shoulder ARTHREX 04/30/2027 [id number] / / [id number] Sut/Anch Rot/Cuff Speedbridgefibertak W/Spanchr Knotlssanchr - [id number] Implanted:Qty: 1 on 12/19/2023 by Sai Alcazar MD at [facility] Implant Left: Shoulder ARTHREX [id number] B3 / / [id number] Additional Health Concerns Active Problems Noted Date Diagnosed Date Autogenerated Problem 10/15/2024 Infection Onset Date 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 Source: [facility]. 08/13/2023 Insurance [employer]NA [facility] Care Teams Com Writer Relationship Specialty Start Date End Date Jose R Tellez MD [address] [facility] [address] [place] [address] PCP - General Family Medicine 12/05/23
--- OUTSIDE RECORDS SUMMARY | 2024-11-01 16:03 | XMS_ITS | Clinical Summary ---
Author Organization [facility] Address [facility] [place][note 2][address] [place] [address] Care Team Providers Care Oxidation Operator Name Role Phone Unavailable Primary Care Provider Unavailabl e Source Comments This information has been disclosed to you from confidential records protectedfrom disclosure by state law. You shall make no further disclosure of thisinformation without the specific, written, and informed release of theindividual to whom it pertains, or as otherwise permitted by law. A generalauthorization for the release of medical or other information is not sufficientfor the purposes of therelease of HIV test results or diagnoses. [id number] Social History Tobacco Use Types Packs/Day Years Used Date Smoking Tobacco: Never Assessed Sex and Gender Information Value Date Recorded Sex Assigned at Not on file Legal Sex Male 11:27 PM EST Gender Identity Not on file Sexual Orientation Not on file Plan of Treatment Not on file
[2024-11-01 17:05] LABS: Alanine Aminotransferase 33 U/L (12-78); Albumin Level 4.5 g/dl (3.5-5.0); Albumin/Globulin Ratio 1.8 (1.1-1.8); Alkaline Phosphatase 79 U/L (38-126); Amylase 92 U/L (30-110); Anion Gap 13.4 mEq/L (5-15); Aspartate Amino Transferase 30 U/L (17-59); Bilirubin,Total 0.2 mg/dl (0.2-1.3); Blood Urea Nitrogen 16 mg/dl (9-20); Calcium 10.2 mg/dl (8.4-10.2); Carbon Dioxide 26 mmol/L (22.0-30.0); Chloride 105 mmol/L (98-107); Creatinine,Serum 1.10 mg/dl (0.66-1.25); Estimated Glomerular Filt Rate 68 ml/min (>60); GFR (African American) 82 ML/MIN (>60); Globulin 2.5 g/dL (1.3-3.2); Glucose 237 mg/dl (74-100); Lipase 215 U/L (23-300); Potassium 4.4 mmoL/L (3.5-5.1); Sodium 140 mmol/L (136-145); Total Protein,Serum 7.0 g/dl (6.3-8.2)
[2024-11-01] MEDS: SODIUM CHLORIDE 0.9% 10ML SYR (RAD ONLY) 10 ML IV (17:25)
[2024-11-01] MEDS: IOPAMIDOL-370 (76%);100ML BOTTLE 75 ML IV (17:26)
[2024-11-01 17:29] LABS: C-Reactive Protein 4.7 mg/L (0-4)
[2024-11-01 18:05] LABS: Microscopic, Urine URINE MICROSCOPIC (MICROSCOPIC)
[2024-11-01 18:14] LABS: Hemoglobin A1C 7.3 % (4.0-6.0)
[2024-11-01 18:47] LABS: Bilirubin,Urine Negative (Negative); Color,Urine YELLOW (Yellow); Glucose,Urine (UA) 3+ (Negative); Ketones,Urine TRACE (Negative); Leukocyte Esterase,Urine Negative (Negative); PH,Urine 6.0 (5.0-8.5); Protein,Urine Negative (Negative); Specific Gravity, Urine 1.025 (1.005-1.030); Urobilinogen,Urine 0.2 EU/dl (0.2)
[2024-11-01 20:34] LABS: Mucus,Urine Trace /lpf; RBC,Urine Occasional #/hpf (0-3); Squamous Epithelial Cell,Urine Occasional #/hpf (0-5); WBC,Urine Occasional #/hpf (0-3)
== END 2024-11-01 23:59 | disposition home or self-care (01) ==
LOC: RAD 16:00
PROVIDERS: PCP Nurse Practitioner Family; Visit Provider Nurse Practitioner Family
DX: R41.3 Other amnesia (principal); E78.5 Hyperlipidemia, unspecified; E11.9 Type 2 diabetes mellitus without complications; K57.30 Diverticulosis of large intestine without perforation or abscess without bleeding; K52.9 Noninfective gastroenteritis and colitis, unspecified
CPT/HCPCS: 74177; 80053; 81001; 82043; 82150; 82570; 83036; 83690; 84156; 85025; 85651; 86140; 87086; Q9967

== ENCOUNTER 2024-12-27 09:22 | Outpatient (CLI) | payer OTHER, SELFPAY ==
--- OUTSIDE RECORDS SUMMARY | 2024-06-25 05:45 | XMS_ITS ---
Author Organization [facility] Address [address] [facility] [address] [place] [id number] Care Team Providers Care Customer Leader Name Role Phone Axel Tellez Primary Care Provider GodfreyMalini tyson Unavailable [phone] Allergies No Known Allergies Results Component Value Reference Range Notes Influenza Screen (in house) Reviewed date:06/25/2024 01:50:49 PM Interpretation:neg Performing Lab: Notes/Report: neg results neg CBC Fingerstick (in house) Reviewed date:06/25/2024 01:50:49 PM Interpretation: Performing Lab: Notes/Report: wbc 7.3 3.5 - 10 lym 27.2 15 - 50 mid 8.0 2 - 15 gran 64.8 35 - 80 rbc 5.22 3.5 - 5.5 hgb 13.9 11.5 - 16.5 hct 41.9 35 - 55 mcv 80.3 75 - 100 mch 26.7 25 - 35 mchc 33.2 31 - 38 plat 245 100 - 400 Covid test (in house) Reviewed date:06/25/2024 01:50:49 PM Interpretation:neg Performing Lab: Notes/Report: neg Result: neg REASON FOR VISIT 1 week f/u Medications Medication SIG (Take, Route, Frequency, Duration) Notes Start Date End Date Status Jqfwzrple-Tefjhpxf-OU 30-2-10 MG/5ML 5-10 ml Orally 4 times a day, prn 06/25/2024 Active Albuterol Sulfate HFA 108 (90 Base) MCG/ACT 1 puff as needed Inhalation every 4 hrs, prn 06/25/2024 Active Ozempic (2 MG/DOSE) 8 MG/3ML 2 mg Subcutaneous once a week 02/04/2024 Active FreeStyle Char 2 Sensor - Place 1 sensor on skin and change every 14 days; Duration: 28 days Active Lantus SoloStar 100 UNIT/ML 5 units Subcutaneous once a day Active Atorvastatin Calcium 40 MG 1 tab(s) orally once a day; Duration: 90 days Active Glimepiride 4 MG 1 tab(s) orally Two times a day; Duration: 90 days Active metFORMIN HCl 500 MG 2 tab(s) orally 2 t imes a day; Duration: 90 days Active Lantus SoloStar 100 UNIT/ML 10 units subcutaneously Two times a day Active FreeStyle Char 2 Mesa - Use to read glucose readings 12/29/2023 Active FreeStyle Char 14 Day Mesa - as directed 11/04/2023 Active FreeStyle Char 14 Day Sensor - as directed 11/04/2023 Active BD Pen Needle Short U/F 31G X 8 MM USE DIRECTED 1 PEN NEEDLE DAILY; Duration: 100 Acti ve Lisinopril 20 MG 1/2 tab(s) orally tw ice a day; Duration: 90 days Active OneTouch Ultra - USE 1 STRIP TO CHECK GLUCOSE TWICE DAILY; Duration: 50 days Active OneTouch Delica Plus [id number] - as directed two times a day as needed 03/06/2023 Active DELICA LANCETS 1 LANCET FINGERSTICK 2 TIMES A DAY OR DIRECTED 06/02/2017 Activ e GLUCOMETER 1 GLUCOMETER FINGERS TICK TEST 2 TIMES A DAY OR DIRECTED 05/21/2014 Active Vital Signs Weight 224.4 lbs 06/25/2024 Blood pressure systolic 120 mm Hg 06/26/19 25 Blood pressure diastolic 82 mm Hg 025 Heart Rate 105 /min 06/25/2024 Height 69.50 in 06/25/2024 BMI 32.66 kg/m2 06/25/2024 Encounters Encounter Location Date Provider Diagnosis [facility] [address] [facility] [address] [place], [place] [id number] 06/25/2024 Malini Dumont Bronchitis J40 Assessments Encounter Date Diagnosis (ICD Code) Assessment Notes Treatment Notes Treatment Clinical Notes Section Notes 06/25/2024 Bronchitis (ICD-10 - J40) Plan Of Treatment Medication Medication Name Sig Start Date Stop Date Notes Umozwjqyc-Ntdwnosd-HA 30-2-1 0 MG/5ML 5-10 ml Orally 4 times a day, prn 06/25/2024 Albuterol Sulfate HFA 108 (9 0 Base) MCG/ACT 1 puff as needed Inhalation every 4 hrs, prn 06/25/2024 Next Appt Details Follow Up: prn, Reason: Progress Notes * Ramana HOFFDOB:[birth year] (64 yo M)Acc No.[id number]:06/25/2024 Patient: Ramana PFEIFFER Provider: ANH Goff :1960 A ge:63 Y S ex:Male Date:06/25/2024 Address:[facility] [place], [id number] Pcp:Axel Tellez Subjective: * Chief Complaints: * 1 . 1 week f/u. * HPI: H PI: 63 year old male presents with c/o Here for follow up on: P t is here today for a 1 week f/u. Pt sts he thinks he has bronchitis now but his stomach is better.? * ROS: D ERMATOLOGY: no R fifi. n o H jacques. G ASTROENTEROLOGY: no N ausea. n o V omiting. n o D iarrhea.? U ROLOGY: no D ifficulty urinating. n o B lood in urine. * Medical History: H [place], GERD, HLP, Right leg DVT - 09/2014, Kidney stone, Morris-diverticulosis by CT scan, Type 2 DM - diagnosed 05/2014, Cervical disc disease - followed by Dr. Ayala, JOSY - Dr. Morales. * Surgical History: v asectomy , Cholecystectomy . * Hospitalization/Major Diagno stic Procedure: H MH-gallstones 2007, [facility] ER-left flank pain, hematuria 04/04/16. * Family History: F ather: 73 yrs, pancreatic cancer, CABG, diagnosed with Diabetes, Heart Disease.?Mother: 66 yrs, heart attack, diagnosed with Diabetes. 1 brother(s) , 1 sister(s) . 1 son(s) , 1 daughter(s) . . 1 brother with diabetes. * Social History: C URRENT TOBACCO USE S moking Status: Patient does NOT smoke. C affeine: yes, frequency:. Home smoke detector use: yes. Alcohol: No. * Medications: T aking DELICA LANCETS 1 LANCET FINGERSTICK 2 TIMES A DAY OR DIRECTED , Taking GLUCOMETER 1 GLUCOMETER FINGERSTICK TEST 2 TIMES A DAY OR DIRECTED , Taking OneTouch Delica Plus [id number] - Miscellaneous as directed two times a day as needed , Taking Lisinopril 20 MG Tablet 1/2 tab(s) orally twice a day , Taking OneTouch Ultra - Strip USE 1 STRIP TO CHECK GLUCOSE TWICE DAILY , Taking FreeStyle Char 14 Day Mesa - Device as directed , Taking FreeStyle Char 14 Day Sensor - Miscellaneous as directed , Taking BD Pen Needle Short U/F 31G X 8 MM Miscellaneous USE DIRECTED 1 PEN NEEDLE DAILY , Taking FreeStyle Char 2 Mesa - Device Use to read glucose readings , Taking Atorvastatin Calcium 40 MG Tablet 1 tab(s) orally once a day , Taking Glimepiride 4 MG Tablet 1 tab(s) orally Two times a day , Taking metFORMIN HCl 500 MG Tablet 2 tab(s) orally 2 times a day , Taking Lantus SoloStar 100 UNIT/ML Solution Pen-injector 10 units subcutaneously Two times a day , Taking Ozempic (2 MG/DOSE) 8 MG/3ML Solution Pen-injector 2 mg Subcutaneous once a week , Taking FreeStyle Char 2 Sensor - Miscellaneous Place 1 sensor on skin and change every 14 days , Taking Lantus SoloStar 100 UNIT/ML Solution Pen-injector 5 units Subcutaneous once a day , Medication List reviewed and reconciled with the patient * Allergies: N .K.D.A. Objective: * Vitals: W t: 224.4, Temp: 97.9, BP: 120/82, HR: 105, Nurse: solitario, Ht: 69.50, BMI:32.66. * Examination: G eneral Examination: General Appearance: N AD. H EENT: sclera and conjunctiva clear, PERRLA, TM's normal, translucent, nose congested. O ral cavity: mucosa moist and WNL, minimal erythema of pharynx. N jesi: s upple, no lymphadenopathy. C hest: normal shape and expansion. H eart: R SR. L ungs: bilateral wheezes, no rales.?Abdomen: bowel sounds present, soft and nontender, no organomegaly or masses, no guarding or rigidity. Assessment: * Assessment: 1. Kuldip hinojosa - JVanessa (Primary) Plan: * Treatment: Value Reference Range r esults neg * Jo-Ann Pina 06/25/2024 10:1 9:09 AM > Provider reviewed results while patient in office. ?LAB: CBC Fingerstick (in house) (Collection Date & Time - 06/25/2024)* Value Reference Range w bc 7.3 3.5 - 10 * l ym 27.2 15 - 50 * m id 8.0 2 - 15 * g ran 64.8 35 - 80 * r bc 5.22 3.5 - 5.5 * h gb 13.9 11.5 - 16.5 * h ct 41.9 35 - 55 * m cv 80.3 75 - 100 * m ch 26.7 25 - 35 * m chc 33.2 31 - 38 * p lat 245 100 - 400 * Jo-Ann Pina 06/25/2024 09:4 0:04 AM > Provider reviewed results while patient in office. ?LAB: Covid test (in house) (Collection Date & Time - 06/25/2024)?neg* Value Reference Range R esult: neg * Jo-Ann Pina 06/25/2024 10:1 8:45 AM > Provider reviewed results while patient in office. * Procedure Codes: 3 6416 CAPILLARY BLOOD DRAW, 86363 CBC WITH AUTO DIFF, 19966 Flu Test- Nasal Swab, Modifiers: QW , 16760 COVID TEST IN HOUSE, Modifiers: QW , 3074F SYST BP LT 130 MM HG, 3079F DIAST BP 80-89 MM HG * Follow Up: p rn * Images: Billing Information: * Visit Code: 02307 Office Visit, Est Pt., Level 3. * Procedure Codes: 38017 CAPILLARY BLOOD DRAW. 56275 CBC WITH AUTO DIFF. 97856 Flu Test- Nasal Swab. Modifiers: QW 69892 COVID TEST IN HOUSE. Modifiers: QW 3074F SYST BP LT 130 MM HG. 3079F DIAST BP 80-89 MM HG. * Electronic signature of ANH Lima on 12/28/2024 at 10:40 AM EDT Sign off status: Pending * Provider: ANH Goff Date: 0 06/25/2024 Generated for Erasmoi ng/Faluis enriqueg/eTransmitting on: 0 12/28/2024 10:40 AM EDT History and Physical Notes * HPI (History of Present Illness) Category Sub-Category Detail Notes Category Not es HPI Here for follow up on: Pt is her e today for a 1 week f/u. Pt sts he thinks he has bronchitis now but his stomach is better Examination Category Sub-Category Detail Notes Category Not es General Examination HEENT: sclera and c onjunctiva clear, PERRLA, TM's normal, translucent, nose congested Heart: RSR Lungs: bilateral wheezes, n o rales Abdomen: bowel sounds present , soft and nontender, no organomegaly or masses, no guarding or rigidity General Appearance: NAD Neck: supple, no lymphaden opathy Oral cavity: mucosa moist and WNL , minimal erythema of pharynx Chest: normal shape and exp ansion
--- OUTSIDE RECORDS SUMMARY | 2024-07-08 09:45 | XMS_ITS ---
Author Organization [facility] Address 12[address] [facility] [address] [place] [id number] Care Team Providers Care Safety Sealer Name Role Phone Axel Tellez Primary Care Provider GodfreyMalini tyson Unavailable [phone] Allergies No Known Allergies Results Component Value Reference Range Notes CBC Fingerstick (in house) Reviewed date:07/08/2024 02:54:48 PM Interpretation: Performing Lab: Notes/Report: wbc 9.6 3.5 - 10 lym 24.5% 15 - 50 mid 5.5% 2 - 15 gran 70.0% 35 - 80 rbc 4.88 3.5 - 5.5 hgb 12.9 11.5 - 16.5 hct 39.8 35 - 55 mcv 81.7 75 - 100 mch 26.4 25 - 35 mchc 32.3 31 - 38 plat 268 100 - 400 CXR Reviewed date:07/13/2024 12:33:07 PM Interpretation: Performing Lab: Notes/Report: REASON FOR VISIT coughing, chest is tight Medications Medication SIG (Take, Route, Frequency, Duration) Notes Start Date End Date Status Glimepiride 4 MG 1 tab(s) orally Two times a day; Duration: 90 days Active Ozempic (2 MG/DOSE) 8 MG/3ML 2 mg Subcutaneous once a week 02/04/2024 Active FreeStyle Char 2 Sensor - Place 1 sensor on skin and change every 14 days; Duration: 28 days Active metFORMIN HCl 500 MG 2 tab(s) orally 2 t imes a day; Duration: 90 days Active Lantus SoloStar 100 UNIT/ML 10 units subcutaneously Two times a day Active Atorvastatin Calcium 40 MG 1 tab(s) orally once a day; Duration: 90 days Active BD Pen Needle Short U/F 31G X 8 MM USE DIRECTED 1 PEN NEEDLE DAILY; Duration: 100 Acti ve FreeStyle Char 2 Pitts - Use to read glucose readings 12/29/2023 Active FreeStyle Char 14 Day Pitts - as directed 11/04/2023 Active FreeStyle Char 14 Day Sensor - as directed 11/04/2023 Active OneTouch Delica Plus [id number] - as directed two times a day as needed 03/06/2023 Active Lisinopril 20 MG 1/2 tab(s) orally tw ice a day; Duration: 90 days Active GLUCOMETER 1 GLUCOMETER FINGERS TICK TEST 2 TIMES A DAY OR DIRECTED 05/21/2014 Active Airsupra 90-80 MCG/ACT 2 puffs as needed Inhalation Six times a day 07/08/2024 Activ e OneTouch Ultra - USE 1 STRIP TO CHECK GLUCOSE TWICE DAILY; Duration: 50 days Active DELICA LANCETS 1 LANCET FINGERSTICK 2 TIMES A DAY OR DIRECTED 06/02/2017 Activ e Lejsrpaii-Hrevokru-AB 30-2-10 MG/5ML 5-10 ml Orally 4 times a day, prn Active Lantus SoloStar 100 UNIT/ML 5 units Subcutaneous once a day Active Problems Problem Type SNOMED Code ICD Code Onset Dates Problem Status W/U Status Risk Notes Problem Body mass index 30.00 to 34.99 ([id number] 107) BMI 31.0-31.9,a dult (Z68.31) Active confirmed Vital Signs Weight 219.4 lbs 07/08/2024 Blood pressure systolic 122 mm Hg 07/09/19 25 Blood pressure diastolic 78 mm Hg 025 Heart Rate 99 /min 07/08/2024 Height 69.50 in 07/08/2024 BMI 31.93 kg/m2 07/08/2024 Encounters Encounter Location Date Provider Diagnosis [facility] [address] [place], [place] [id number] 07/08/2024 Malini Julia Bronchitis J40 and B CO 31.0-31.9,adult Z68.31 Assessments Encounter Date Diagnosis (ICD Code) Assessment Notes Treatment Notes Treatment Clinical Notes Section Notes 07/08/2024 Bronchitis (ICD-10 - J40) Will stop albuterol and start on airsupra samples. 07/08/2024 BMI 31.0-31.9,adult (ICD-10 - Z68.31) Plan Of Treatment Medication Medication Name Sig Start Date Stop Date Notes Airsupra 90-80 MCG/ACT 2 puffs as needed Inhalation Six times a day 07/08/2024 Sajkrpske-Exyirvfu-GM 30-2-1 0 MG/5ML 5-10 ml Orally 4 times a day, prn Albuterol Sulfate HFA 108 (9 0 Base) MCG/ACT 1 puff as needed Inhalation every 4 hrs, prn Treatment Notes Assessment Notes Bronchitis Will stop albuterol and start on airsupra samples. Next Appt Details Follow Up: via phone to repo rt test results, Reason: Progress Notes * Ramana HOFFDOB:[birth year] (64 yo M)Acc No.[id number]:07/08/2024 Progress Notes Patient: Ramana PFEIFFER Provider: ANH Goff :1960 A ge:63 Y S ex:Male Date:07/08/2024 Address:[facility] [place], [id number] Pcp:Axel Tellez Subjective: * Chief Complaints: * 1 . Coughing, chest is tight. * HPI: E NT/respiratory: The patient is here today with c/o sinus pain and pressure. Pt states the cough is doing better except when he lays down at night and he gets short of breath. 63 year old male presents with c/o cough. c/o facial pain/pressure. c/o Short of Breath. Denies : sore throat. D enies : Fever. D enies : post nasal drainage. D enies : Chest Pain. * ROS: D ERMATOLOGY: no R fifi. [...] Cervical disc disease - followed by Dr. JOSY Ayala - Dr. Morales. * Surgical History: v asectomy , Cholecystectomy . * Hospitalization/Major Diagno stic Procedure: H MH-gallstones 2007, [facility] ER-left flank pain, hematuria 04/04/16. * Family [...] OR DIRECTED , Taking OneTouch Delica Plus Fxksvo76W - Miscellaneous as directed two times a day as needed , Taking Lisinopril 20 MG Tablet 1/2 tab(s) orally twice a day , Taking OneTouch Ultra - Strip USE 1 STRIP TO CHECK GLUCOSE TWICE DAILY , Taking FreeStyle Char 14 Day Pitts - Device as directed , Taking FreeStyle Char 14 Day Sensor - Miscellaneous as directed , Taking BD Pen Needle Short U/F 31G X 8 MM Miscellaneous USE DIRECTED 1 PEN NEEDLE DAILY , Taking FreeStyle Char 2 Pitts - Device Use to read glucose readings [...] 5 units Subcutaneous once a day , Taking Fkleuwfhw-Msaffgzq-XO 30-2-10 MG/5ML Syrup 5-10 ml Orally 4 times a day, prn , Taking Albuterol Sulfate HFA 108 (90 Base) MCG/ACT Aerosol Solution 1 puff as needed Inhalation every 4 hrs, prn , Medication List reviewed and reconciled with the patient * Allergies: N .K.D.A. Objective: * Vitals: W t:219.4, Temp:98.0, BP:122/78, HR:99, O2 Sat:98% on RA, Nurse:MATTHIEU, Ht: 69.50, BMI:31.93. * Examination: E NT/Respiratory: General Appearance: N AD. E ars: a uditory canals normal bilaterally, TM's WNL. N ose : n ormal, no lesions, nares patent. S inuses : non tender bilaterally. O ral cavity : erythema without exudate on pharynx. N jesi : supple, bilateral tender lymphadenopathy. H eart : RRR. L ungs: e xpiratory wheezes, no rales. Assessment: * Assessment: 1. B ashish - J40 (Primary) 2 . B CO 31.0-31.9,adult - Z68.31 Plan: * Treatment: Value Reference Range w bc 9.6 3.5 - 10 * l ym 24.5% 15 - 50 * m id 5.5% 2 - 15 * g ran 70.0% 35 - 80 * r bc 4.88 3.5 - 5.5 * h gb 12.9 11.5 - 16.5 * h ct 39.8 35 - 55 * m cv 81.7 75 - 100 * m ch 26.4 25 - 35 * m chc 32.3 31 - 38 * p lat 268 100 - 400 * Sol Vu 07/08/2024 2:1 8:47 PM > Provider reviewed results while patient in office. ?Imaging: CXR (Performed Date - 07/08/2024)* Malini Dumont 07/13/2024 12 :32:58 PM > discussed with patient Notes: Will stop albuterol and start on airsupra samples.?? * Procedure Codes: 9 4760 [place], [address] CAPILLARY BLOOD DRAW, 60262 CBC WITH AUTO DIFF, 3074F SYST BP LT 130 MM HG, 3078F DIAST BP < 80 MM HG * Follow Up: v ia phone to report test results * Images: Billing Information: * Visit Code: 35283 Office Visit, Est Pt., Level 3. * Procedure Codes: [address] [place]. [address] CAPILLARY BLOOD DRAW. 65944 CBC WITH AUTO DIFF. 3074F SYST BP LT 130 MM HG. 3078F DIAST BP < 80 MM HG. * Electronic signature of ANH Lima on 12/28/2024 at 10:40 AM EDT Sign off status: Pending * Provider: ANH Goff Date: 07/08/2024 Generated for Printi ng/Faxing/eTransmitting on: 0 12/28/2024 10:40 AM EDT History and Physical Notes * HPI (History of Present Illness) Category Sub-Category Detail Notes Category Not es ENT/respiratory sore throat facial pain/pressure Short of Breath Chest Pain cough Fever post nasal drainage Examination Category Sub-Category Detail Notes Category Not es ENT/Respiratory Oral cavity : erythema without exudate on pharynx Sinuses : non tender bilateral ly Ears: auditory canals norm al bilaterally, TM's WNL Neck : supple, bilateral te nder lymphadenopathy Heart : RRR Lungs: expiratory wheezes, no rales General Appearance: NAD Nose : normal, no lesions, nares patent
--- OUTSIDE RECORDS SUMMARY | 2024-08-18 05:30 | XMS_ITS ---
Author Organization [facility] Address [address] [facility] [address] [place] [id number] Care Team Providers Care Curer Foam Rubber Name Role Phone Rosalinda Axel Tj Primary Care Provider Malini Dumont Unavailable [phone] Allergies No Known Allergies Results Component Value Reference Range Notes Urinalysis - Inhouse Reviewed date:08/18/2024 10:04:52 AM Interpretation: Performing Lab: Notes/Report: Color/Clarity yellow Leuk neg Nitrite neg Urobili 3.2 Protein neg pH 5.5 Blood trace-intact Sp. Gr. 1.025 Ketone neg Bili neg Gluc neg CBC Fingerstick (in house) Reviewed date:08/18/2024 10:04:01 AM Interpretation: Performing Lab: Notes/Report: wbc 13.0 3.5 - 10 lym 26.7 15 - 50 mid 5.3 2 - 15 gran 68.0 35 - 80 rbc 5.11 3.5 - 5.5 hgb 13.6 11.5 - 16.5 hct 41.2 35 - 55 mcv 80.7 75 - 100 mch 26.6 25 - 35 mchc 32.9 31 - 38 plat 199 100 - 400 P-Culture, Urine Reviewed date:08/25/2024 04:10:45 PM Interpretation: Performing Lab: Notes/Report: Test performed by [facility] [address] [place] [address] , [address], [place] [address] Mateo Green MD, Compositor Apprentice CLIA: [id number] Specimen Source Urine - Void Culture, Urine See Below Final Report : No growth REASON FOR VISIT ER F/U Medications Medication SIG (Take, Route, Frequency, Duration) Notes Start Date End Date Status Tamsulosin HCl 0.4 MG 1 capsule Orally O nce a day Active Cefdinir 300 MG as directed Orally Active GLUCOMETER 1 GLUCOMETER FINGERS TICK TEST 2 TIMES A DAY OR DIRECTED 05/21/2014 Active DELICA LANCETS 1 LANCET FINGERSTICK 2 TIMES A DAY OR DIRECTED 06/02/2017 Active OneTouch Delica Plus [id number] - as directed two times a day as needed 03/06/2023 Active Glimepiride 4 MG Take 1 tablet by sofia th twice daily; Duration: 90 Active oxyCODONE HCl 5 MG 1 tablet as needed O rally every 6 hrs Active Gbeltsfcc-Idhztwik-UG 30-2-10 MG/5ML 5-10 ml Orally 4 times a day, prn Not-Taking Semglee (yfgn) 100 UNIT/ML INJECT 25 UNITS SUBCUTANEOUSLY TWICE DAILY; Duration: 24 Active Airsupra 90-80 MCG/ACT 2 puffs as needed Inhalation Six times a day 07/08/2024 Active metFORMIN HCl 500 MG 2 tab(s) orally 2 t imes a day; Duration: 90 days Active Atorvastatin Calcium 40 MG 1 tab(s) orally once a day; Duration: 90 days Active FreeStyle Char 2 Sensor - Place 1 sensor on skin and change every 14 days; Duration: 28 days Active Ozempic (2 MG/DOSE) 8 MG/3ML 2 mg Subcutaneous once a week 02/04/2024 Active Lantus SoloStar 100 UNIT/ML 5 units Subcutaneous once a day Active FreeStyle Char 2 Fowler - Use to read glucose readings 12/29/2023 Active BD Pen Needle Short U/F 31G X 8 MM USE DIRECTED 1 PEN NEEDLE DAILY; Duration: 100 Active FreeStyle Char 14 Day Fowler - as directed 11/04/2023 Active OneTouch Ultra - USE 1 STRIP TO CHECK GLUCOSE TWICE DAILY; Duration: 50 days Active FreeStyle Char 14 Day Sensor - as directed 11/04/2023 Active Lisinopril 20 MG 1/2 tab(s) orally tw ice a day; Duration: 90 days Active Problems Problem Type SNOMED Code ICD Code Onset Dates Problem Status W/U Status Risk Notes Problem Kidney stone (22444150) Kidney stone (N20.0) Active confirmed Vital Signs Weight 218.2 lbs 08/18/2024 Blood pressure systolic 120 mm Hg 08/19/19 25 Blood pressure diastolic 68 mm Hg 025 Heart Rate 95 /min 08/18/2024 Height 69.50 in 08/18/2024 BMI 31.76 kg/m2 08/18/2024 Encounters Encounter Location Date Provider Diagnosis [facility] [address] [place] [id number] 08/18/2024 Malini Dumont Kidney stone N20.0 a nd Hematuria R31.9 Assessments Encounter Date Diagnosis (ICD Code) Assessment Notes Treatment Notes Treatment Clinical Notes Section Notes 08/18/2024 Kidney stone (ICD-10 - N20.0) 08/18/2024 Hematuria (ICD-10 - R31.9) CT scan reviewed and did not show a pyelonephritis . He will continue abx. No culture was performed in the ER so will culture urine today. Plan Of Treatment Treatment Notes Assessment Notes Hematuria CT scan reviewed and did not show a pyelonephritis. He will continue abx. No culture was performed in the ER so will culture urine today. Next Appt Details Follow Up: via phone to repo rt test results, Reason: Progress Notes * Ramana HOFFDOB:[birth year] (64 yo M)Acc No.[id number]:08/18/2024 Patient: Cornell PFEIFFERothy Provider: ANH Goff :1960 A ge:63 Y S ex:Male Date:08/18/2024 [id number] Pcp:Axel Tellez Subjective: * Chief Complaints: * 1 . ER F/U. * HPI: H PI: Patient is here today for a follow-up from a visit to [facility] ER. Pt sts that he wasn't feeling right so he went to the ER and his WBC was elevated and he had hematuria with 2+ blood. Pt sts that they gave him a shot and he started feeling better. Pt sts that his CT showed an infection in the kidney. Pt is now on abx and Tamsulosin. Pt sts that he has had some back pain and low abdominal pain but sts that they did tell him he had a stone that was ready to pass. He passed it on Friday.. * ROS: D ERMATOLOGY: no R fifi. [...] Hospitalization/Major Diagno stic Procedure: H [facility]-gallstones 2007, [facility] ER-left flank pain, hematuria 04/04/16, [facility] ER - Pain - Kidney Infection 08/14/2024. * Family History: F ather: 73 yrs, [...] yes. Alcohol: No. * Medications: T aking oxyCODONE HCl 5 MG Tablet 1 tablet as needed Orally every 6 hrs , Taking Cefdinir 300 MG Capsule as directed Orally , Taking Tamsulosin HCl 0.4 MG Capsule 1 capsule Orally Once a day , Taking DELICA LANCETS 1 LANCET FINGERSTICK 2 TIMES A DAY OR DIRECTED , Taking GLUCOMETER 1 GLUCOMETER FINGERSTICK TEST 2 TIMES A DAY OR DIRECTED , Taking OneTouch Delica Plus [id number] - Miscellaneous as directed two times a day as needed , Taking Lisinopril 20 MG Tablet 1/2 tab(s) orally twice a day , Taking OneTouch Ultra - Strip USE 1 STRIP TO CHECK GLUCOSE TWICE DAILY , Taking FreeStyle Char 14 Day Fowler - Device as directed , Taking FreeStyle Char 14 Day Sensor - Miscellaneous as directed , Taking BD Pen Needle Short U/F 31G X 8 MM Miscellaneous USE DIRECTED 1 PEN NEEDLE DAILY , Taking FreeStyle Char 2 Fowler - Device Use to read glucose readings , Taking Atorvastatin Calcium 40 MG Tablet 1 tab(s) orally once a day , Taking metFORMIN HCl 500 MG Tablet 2 tab(s) orally 2 times a day , Taking Ozempic (2 MG/DOSE) 8 MG/3ML Solution Pen-injector 2 mg Subcutaneous once a week , Taking FreeStyle Char 2 Sensor - Miscellaneous Place 1 sensor on skin and change every 14 days , Taking Lantus SoloStar 100 UNIT/ML Solution Pen- injector 5 units Subcutaneous once a day , Taking Airsupra 90-80 MCG/ACT Aerosol 2 puffs as needed Inhalation Six times a day , Taking Semglee (yfgn) 100 UNIT/ML Solution Pen-injector INJECT 25 UNITS SUBCUTANEOUSLY TWICE DAILY , Taking Glimepiride 4 MG Tablet Take 1 tablet by mouth twice daily , Not-Taking Qenrbkjpc-Hluksyhi-EL 30-2-10 MG/5ML Syrup 5-10 ml Orally 4 times a day, prn , Medication List reviewed and reconciled with the patient * Allergies: N .K.D.A. Objective: * Vitals: W t: 218.2, Temp: 97.6, BP: 120/68, HR: 95, Nurse: RANI, Ht: 69.50, BMI:31.76. * Examination: G eneral Examination: General Appearance: N AD. H EENT: u nremarkable.?Oral cavity: n o lesions, mucosa moist and WNL, no erythema. N jesi: s upple, no lymphadenopathy. C hest: n ormal shape and expansion. H eart: R SR. L ungs: c lear to auscultation. A bdomen: b owel sounds present , soft and nontender. N eurologic Exam: I ntact, gait normal. S kin: n ormal, no rash. P eripheral pulses: n ormal (2+) bilaterally. E xtremities: n o leg edema. Assessment: * Assessment: 1. K idney stone - N20.0 (Primary) S pecify :left side 2 . H ematuria - R31.9 Plan: * Treatment: Value Reference Range C olor/Clarity yellow * L euk neg * N itrite neg * U robili 3.2 * P rotein neg * p H 5.5 * B lood trace-intact * S p. Gr. 1.025 * K etone neg * B angelina neg * G rajan neg * Diana Higuera 08/18/2024 10: 04:41 AM > results reviewed w/ pt in office ?LAB: CBC Fingerstick (in house) (Collection Date & Time - 08/18/2024)* Value Reference Range w bc 13.0 3.5 - 10 * l ym 26.7 15 - 50 * m id 5.3 2 - 15 * g ran 68.0 35 - 80 * r bc 5.11 3.5 - 5.5 * h gb 13.6 11.5 - 16.5 * h ct 41.2 35 - 55 * m cv 80.7 75 - 100 * m ch 26.6 25 - 35 * m chc 32.9 31 - 38 * p lat 199 100 - 400 * Diana Higuera 08/18/2024 10: 03:48 AM > results reviewed w/ pt in office 2.?Hematuria?LAB: P-Culture, Urine (Collection Date & Time - 08/18/2024 10:02 AM)* Value Reference Range C ulture, Urine See Below - * S pecimen Source Urine - Void - * Malini Dumont 08/25/2024 0 4:10:38 PM >discussed with patient Notes: CT scan reviewed and did not show a pyelonephritis. He will continue abx. No culture was performed in the ER so will culture urine today.?? * Procedure Codes: 3 6416 CAPILLARY BLOOD DRAW, 14328 CBC WITH AUTO DIFF, 54253 Urinalysis, no micro * Follow Up: v ia phone to report test results * Images: Billing Information: * Visit Code: 24003 Office Visit, Est Pt., Level 4. * Procedure Codes: 76782 CAPILLARY BLOOD DRAW. 16729 CBC WITH AUTO DIFF. 24442 Urinalysis, no micro. * Electronic signature of ANH Lima on 12/28/2024 at 10:41 AM EDT Sign off status: Pending * Provider: ANH Goff Date: 0 08/18/2024 Generated for Printi ng/Faxing/eTransmitting on: 0 12/28/2024 10:41 AM EDT History and Physical Notes * HPI (History of Present Illness) Category Sub-Category Detail Notes Category Not es HPI Patient is here today for a foll ow-up from a visit to [facility] ER. Pt sts that he wasn't feeling right so he went to the ER and his WBC was elevated and he had hematuria with 2+ blood. Pt sts that they gave him a shot and he started feeling better. Pt sts that his CT showed an infection in the kidney. Pt is now on abx and Tamsulosin. Pt sts that he has had some back pain and low abdominal pain but sts that they did tell him he had a stone that was ready to pass. He passed it on Friday. Examination Category Sub-Category Detail Notes Category Not es General Examination HEENT: unremarkable Heart: RSR Lungs: clear to auscultatio n Abdomen: bowel sounds present , soft and nontender Extremities: no leg edema General Appearance: NAD Skin: normal, no rash Neurologic Exam: Intact, gait normal Neck: supple, no lymphaden opathy Oral cavity: no lesions, mucosa m oist and WNL, no erythema Peripheral pulses: normal (2+) bilatera lly Chest: normal shape and exp ansion
--- OUTSIDE RECORDS SUMMARY | 2024-08-25 05:30 | XMS_ITS ---
Author Organization [facility] Address [address] [facility] [address] [place] [id number] Care Team Providers Care Coastal Tug Mate Name Role Phone Rosalinda Axel Tj Primary Care Provider Malini Dumont Unavailable [phone] Allergies No Known Allergies Results Component Value Reference Range Notes Urinalysis - Inhouse Reviewed date:08/25/2024 04:10:59 PM Interpretation: Performing Lab: Notes/Report: Color/Clarity yellow Leuk neg Nitrite neg Urobili 3.2 Protein neg pH 5.5 Blood neg Sp. Gr. 1.025 Ketone neg Bili neg Gluc neg CBC Venipuncture (in house) Reviewed date:08/25/2024 04:11:07 PM Interpretation: Performing Lab: Notes/Report: wbc 11.8 3.5 - 10 lymph 21.1 15 - 50 mid 5.2 2 - 15 gran 73.7 35 - 80 rbc 4.79 3.5 - 5.5 hgb 12.7 11.5 - 16.5 hct 38.6 35 - 55 mcv 80.5 75 - 100 mch 26.5 25 - 35 mchc 33.0 31 - 38 platlet 328 100 - 400 Glycohemoglobin A1c (in hous e) Reviewed date:08/26/2024 08:30:24 AM Interpretation:7.0% Performing Lab: Notes/Report: 7.0% glycohemoglobin 7.0% 5 - 6.5 % P-Comprehensive Metabolic Pa jaylen (CMP) Reviewed date:08/26/2024 08:30:24 AM Interpretation: Performing Lab: Notes/Report: Test performed by [facility] [address] [place] [address] , [address], [place] [address] Mateo Green MD, Ammonia Box Tender CLIA: [id number] Sodium 137 135-145 mmol/L Potassium 4.7 3.5-5.3 mmol/L Chloride 103 97-108 mmol/L CO2 22 22-32 mmol/L Glucose 105 65-99 mg/dL BUN 20 8-23 mg/dL Creatinine 1.08 0.70-1.30 mg/dL Calcium 9.3 8.6-10.4 mg/dL eGFR by Creatinine 77 >59 mL/min/1.73m2 Protein 7.3 6.0-8.3 g/dL Albumin 4.5 3.5-5.3 g/dL Alkaline Phosphatase 78 40-129 IU/L ALT (SGPT) 28 <5-55 IU/L AST (SGOT) 25 <5-46 IU/L Bilirubin, Total 0.3 <0.2-1.2 mg/dL A/G Ratio 1.6 1.1-2.5 P-Lipid Panel Reviewed date:08/26/2024 08:30:24 AM Interpretation: Performing Lab: Notes/Report: Test performed by [facility], [address] , [address], [place] [address] Mateo Green MD, Ammonia Box Tender CLIA: [id number] Cholesterol 116 <200 mg/dL Triglycerides 135 <150 mg/dL HDL Cholesterol 31 >39 mg/dL Cholesterol / HDL Ratio 3.74 0.00-4.99 Ratio Non-HDL Cholesterol 85 <130 mg/dL LDL Cholesterol (Calculation) 58 <130 mg/dL LDL Cholesterol Levels* Less than 100 mg/dL Optimal 100 to 129 mg/dL Near Optimal/ Above Optimal 130 to 159 mg/dL Borderline High 160 to 189 mg/dL High 190 mg/dL and above Very High * Categories as recommended by the 2004 ATPIII guidelines LDL/HDL Ratio 1.9 <3.3 Ratio LDL Cholesterol Patient History Test Date: 11/12/2023 LDL Results: 54 Units: mg/dL % Change: - Test Date: 05/28/2024 LDL Results: 53 Units: mg/dL % Change: -1% Test Date: 08/25/2024 LDL Results: 58 Units: mg/dL % Change: +9% P-PSA Reviewed date:08/26/2024 08:30:24 AM Interpretation: Performing Lab: Notes/Report: Test performed by [facility], [address] , [address], [place] [address] Mateo Green MD, Ammonia Box Tender CLIA: [id number] PSA 2.59 <4.00 ng/mL Please note this is an ultrasensitive PSA assay with a lower limit of detection of 0.014 ng/mL. This test is performed by the [employer] ECLIA methodology. Values obtained with different assay methods or kits cannot be directly compared. REASON FOR VISIT 3 Month Check Up, Needs labs with PSA & diabetic eye exam Medications Medication SIG (Take, Route, Frequency, Duration) Notes Start Date End Date Status Glimepiride 4 MG Take 1 tablet by [facility] twice daily; Duration: 90 Active Ozempic (2 MG/DOSE) 8 MG/3ML INJECT 2 MG SUBCUTANEOUSLY ONCE A WEEK; Duration: 28 Active Lmxpnzqkx-Djizfkbw-HY 30-2-10 MG/5ML 5-10 ml Orally 4 times a day, prn Not-Taking Airsupra 90-80 MCG/ACT 2 puffs as needed Inhalation Six times a day 07/08/2024 Active Semglee (yfgn) 100 UNIT/ML INJECT 25 UNITS SUBCUTANEOUSLY TWICE DAILY; Duration: 24 Active Lantus SoloStar 100 UNIT/ML 5 units Subcutaneous once a day Active FreeStyle Char 2 [place] - Use to read glucose readings 12/29/2023 Active Atorvastatin Calcium 40 MG 1 tab(s) orally once a day; Duration: 90 days Active metFORMIN HCl 500 MG 2 tab(s) orally 2 t imes a day; Duration: 90 days Active FreeStyle Char 2 Sensor - Place 1 sensor on skin and change every 14 days; Duration: 28 days Active FreeStyle Char 14 Day [place] - as directed 11/04/2023 Active FreeStyle Char 14 Day Sensor - as directed 11/04/2023 Active BD Pen Needle Short U/F 31G X 8 MM USE DIRECTED 1 PEN NEEDLE DAILY; Duration: 100 Active Lisinopril 20 MG 1/2 tab(s) orally tw ice a day; Duration: 90 days Active OneTouch Ultra - USE 1 STRIP TO CHECK GLUCOSE TWICE DAILY; Duration: 50 days Active GLUCOMETER 1 GLUCOMETER FINGERS TICK TEST 2 TIMES A DAY OR DIRECTED 05/21/2014 Active OneTouch Delica Plus [id number] - as directed two times a day as needed 03/06/2023 Active Cefdinir 300 MG as directed Orally Active Tamsulosin HCl 0.4 MG 1 capsule Orally O nce a day Active DELICA LANCETS 1 LANCET FINGERSTICK 2 TIMES A DAY OR DIRECTED 06/02/2017 Active oxyCODONE HCl 5 MG 1 tablet as needed O rally every 6 hrs Active Vital Signs Weight 219.4 lbs 08/25/2024 Blood pressure systolic 120 mm Hg 08/26/19 25 Blood pressure diastolic 70 mm Hg 025 Heart Rate 89 /min 08/25/2024 Height 69.50 in 08/25/2024 BMI 31.93 kg/m2 08/25/2024 Encounters Encounter Location Date Provider Diagnosis [facility] [address] [place] [id number] 08/25/2024 Malini Dumont Type 2 diabetes ana luisa itus without complication E11.9 ; HTN (hypertension) I10 ; Hyperlipidemia E78.5 ; Kidney stone N20.0 ; Hematuria R31.9 ; Screening PSA (prostate specific antigen) Z12.5 and BMI 31.0-31.9,adult Z68.31 Assessments Encounter Date Diagnosis (ICD Code) Assessment Notes Treatment Notes Treatment Clinical Notes Section Notes 08/25/2024 Type 2 diabetes mellitus without complication (ICD-10 - E11.9) 08/25/2024 HTN (hypertension) (ICD-10 - I10) 08/25/2024 Hyperlipidemia (ICD-10 - E78.5) 08/25/2024 Kidney stone (ICD-10 - N20.0) 08/25/2024 Hematuria (ICD-10 - R31.9) Has finished abx. Culture was negative. U/A today is normal. Will recheck a CBC in a few weeks. 08/25/2024 Screening PSA (prostate specific antigen) (ICD-10 - Z12.5) 08/25/2024 BMI 31.0-31.9,adult (ICD-10 - Z68.31) Plan Of Treatment Treatment Notes Assessment Notes Hematuria Has finished abx. Cu lture was negative. U/A today is normal. Will recheck a CBC in a few weeks. Next Appt Details Follow Up: via phone to repo rt test results, Reason: Progress Notes * Ramana HOFFDOB:[birth year] (64 yo M)Acc No.[id number]:08/25/2024 Progress Notes Patient: Ramana PFEIFFER Provider: ANH Goff :1960 A ge:63 Y S ex:Male Date:08/25/2024 Address:[facility] [place], [id number] Pcp:Axel Tellez Subjective: * Chief Complaints: * 1 . 3 Month Check Up. 2. Needs labs with PSA & diabetic eye exam. * HPI: H PI: 63 year old male presents with c/o Patient is here today for?Pt is here today for a 3 month check up. Pt sts he is fasting. * ROS: D ERMATOLOGY: no R fifi. [...] Hospitalization/Major Diagno stic Procedure: H MH-gallstones 2007, [facility] ER-left flank pain, hematuria 04/04/16, [facility] ER - Pain - Kidney Infection [...] OR DIRECTED , Taking OneTouch Delica Plus [id number] - Miscellaneous as directed two times a day as needed , Taking Lisinopril 20 MG Tablet 1/2 tab(s) orally twice a day , Taking OneTouch Ultra - Strip USE 1 STRIP TO CHECK GLUCOSE TWICE DAILY , Taking FreeStyle Hcar 14 Day [place] - Device as directed , Taking FreeStyle Char 14 Day Sensor - Miscellaneous as directed , Taking BD Pen Needle Short U/F 31G X 8 MM Miscellaneous USE DIRECTED 1 PEN NEEDLE DAILY , Taking FreeStyle Char 2 [place] - Device Use to read glucose readings , Taking Atorvastatin Calcium 40 MG Tablet 1 tab(s) orally once a day , Taking metFORMIN HCl 500 MG Tablet 2 tab(s) orally 2 times a day , Taking FreeStyle Char 2 Sensor - [...] 1 tablet by mouth twice daily , Taking Ozempic (2 MG/DOSE) 8 MG/3ML Solution Pen-injector INJECT 2 MG SUBCUTANEOUSLY ONCE A WEEK , Not-Taking Uqitsovmb-Uczpokoo-AU 30-2-10 MG/5ML Syrup 5-10 ml Orally 4 times a day, prn , Medication List reviewed and reconciled with the patient * Allergies: N .K.D.A. Objective: * Vitals: W t: 219.4, Temp: 97.9, BP: 120/70, HR: 89, Nurse: [facility], Ht: 69.50, BMI:31.93. * Examination: G eneral Examination: General Appearance: N AD. H EENT: u nremarkable.?Oral cavity: n o lesions, mucosa moist and WNL, no erythema. N jesi: s upple, no lymphadenopathy. C hest: n ormal shape and expansion. H eart: R SR. L ungs: c lear to auscultation. A bdomen: n o guarding or rigidity, bowel sounds present , soft and nontender , no organomegaly or masses. N eurologic Exam: I ntact, gait normal. S kin: n ormal, no rash. P eripheral pulses: n ormal (2+) bilaterally. E xtremities: n o leg edema. Assessment: * Assessment: 1. T ype 2 diabetes mellitus without complication - E11.9 (Primary) 2 . H TN (hypertension) - I10 3 . H yperlipidemia - E78.5 4 . K idney stone - N20.0 S pecify :left side 5 . H ematuria - R31.9 6 . S creening PSA (prostate specific antigen) - Z12.5 7 . B NC 31.0-31.9,adult - Z68.31 Plan: * Treatment: Value Reference Range A /G Ratio 1.6 1.1-2.5 - * A lbumin 4.5 3.5-5.3 - g/dL * A lkaline Phosphatase 78 40-129 - IU/L * A LT (SGPT) 28 <5-55 - IU/L * A ST (SGOT) 25 <5-46 - IU/L * B ilirubin, Total 0.3 <0.2-1.2 - mg/dL * B UN 20 8-23 - mg/dL * C alcium 9.3 8.6-10.4 - mg/dL * C hloride 103 97-108 - mmol/L * C O2 22 22-32 - mmol/L * C reatinine 1.08 0.70-1.30 - mg/dL * G lucose 105 H 65-99 - mg/dL * P otassium 4.7 3.5-5.3 - mmol/L * S odium 137 135-145 - mmol/L * P rotein 7.3 6.0-8.3 - g/dL * e GFR by Creatinine 77 >59 - mL/min/1.73m2 * Malini Dumont 08/26/2024 0 8:30:17 AM >see TE ?LAB: Glycohemoglobin A1c (in house) (Collection Date & Time - 08/25/2024)? 7.0%* Value Reference Range g lycohemoglobin 7.0% 5 - 6.5 % * Jo-Ann Pina 08/25/2024 11:0 5:13 AM > Malini Dumont 08/26/2024 08:30:17 AM >see TE 2.?HTN (hypertension)?LAB: CBC Venipuncture (in house) (Collection Date & Time - 08/25/2024)* Value Reference Range w bc 11.8 3.5 - 10 * l ymph 21.1 15 - 50 * m id 5.2 2 - 15 * g ran 73.7 35 - 80 * r bc 4.79 3.5 - 5.5 * h gb 12.7 11.5 - 16.5 * h ct 38.6 35 - 55 * m cv 80.5 75 - 100 * m ch 26.5 25 - 35 * m chc 33.0 31 - 38 * p latlet 328 100 - 400 * Jo-Ann Pina 08/25/2024 10:2 5:36 AM > Provider reviewed results while patient in office.Malini Dumont 08/25/2024 04:11:04 PM > 3.?Hyperlipidemia?LAB: P-Lipid Panel (Collection Date & Time - 08/25/2024 09:02 AM)* Value Reference Range C holesterol / HDL Ratio 3.74 0.00-4.99 - Ratio * C holesterol 116 <200 - mg/dL * H DL Cholesterol 31 L >39 - mg/dL * L DL Cholesterol (Calculation) 58 <130 - mg/d L * L DL/HDL Ratio 1.9 <3.3 - Ratio * N on-HDL Cholesterol 85 <130 - mg/dL * T riglycerides 135 <150 - mg/dL * Malini Dumont 08/26/2024 0 8:30:17 AM >see TE 4.?Hematuria?LAB: Urinalysis - Inhouse (Collection Date & Time - 08/25/2024)* Value Reference Range C olor/Clarity yellow * L euk neg * N itrite neg * U robili 3.2 * P rotein neg * p H 5.5 * B lood neg * S p. Gr. 1.025 * K etone neg * B angelina neg * G rajan neg * Jo-Ann Pina 08/25/2024 10:2 4:41 AM >Malini Dumont 08/25/2024 04:10:56 PM > Notes: Has finished abx. Culture was negative. U/A today is normal. Will recheck a CBC in a few weeks.??5.?Screening PSA (prostate specific antigen)?LAB: P-PSA (Collection Date & Time - 08/25/2024 09:02 AM)* Value Reference Range P SA 2.59 <4.00 - ng/mL * Malini Dumont 08/26/2024 0 8:30:17 AM >see TE * Procedure Codes: 8 3036 GLYCATED HEMOGLOBIN TEST, Modifiers: QW , [address] CBC WITH AUTO DIFF, 01798 Urinalysis, no micro, G8950 PREHTN/HTN BP DOC INDCD F/U DOC, G8752 MOST RECENT SYSTOLIC BP < 140MM HG, G8754 MOST RECENT DIASTOLIC BP < 90MM HG, 3051F HG A1C>EQUAL 7.0%<8.0%, 3017F COLORECTAL CA SCREEN DOC REV * Preventive Medicine: Screening / Special Tests: C olonoscopy c olonoscopy per Dr. Chen 02/10/2020 diverticulosis, to repeat 3-5 years due to history of significant polyps and moderate bowel prep. * Follow Up: v ia phone to report test results * Images: Billing Information: * Visit Code: 76123 Office Visit, Est Pt., Level 4. * Procedure Codes: 11936 GLYCATED HEMOGLOBIN TEST. Modifiers: QW 65621 CBC WITH AUTO DIFF. 58106 Urinalysis, no micro. G8950 PREHTN/HTN BP DOC INDCD F/U DOC. G8752 MOST RECENT SYSTOLIC BP < 140MM HG. G8754 MOST RECENT DIASTOLIC BP < 90MM HG. 3051F HG A1C>EQUAL 7.0%<8.0%. 3017F COLORECTAL CA SCREEN DOC REV. * Electronic signature of ANH Lima on 12/28/2024 at 10:41 AM EDT Sign off status: Pending * Provider: ANH Goff Date: 0 08/25/2024 Generated for Alyson ng/Faluis enriqueg/eTransmitting on: 0 12/28/2024 10:41 AM EDT History and Physical Notes * HPI (History of Present Illness) Category Sub-Category Detail Notes Category Not es HPI Patient is here today for Pt is here today for a 3 month check up. Pt sts he is fasting Examination Category Sub-Category Detail Notes Category Not es General Examination HEENT: unremarkable Heart: RSR Lungs: clear to auscultatio n Abdomen: no guarding or rigid ity, bowel sounds present , soft and nontender , no organomegaly or masses Extremities: no leg edema General Appearance: NAD Skin: normal, no rash Neurologic Exam: Intact, gait normal Neck: supple, no lymphaden opathy Oral cavity: no lesions, mucosa m oist and WNL, no erythema Peripheral pulses: normal (2+) bilatera lly Chest: normal shape and exp ansion
--- OUTSIDE RECORDS SUMMARY | 2024-09-10 10:30 | XMS_ITS ---
Author Organization [facility] Address [address] [facility] 36 [facility] [address] [place] [phone] Care Team Providers Care Equipment Installation Professional Name Role Phone Rosalinda Axel Tj Primary Care Provider [phone] Malini Dumont Unavailable [phone] Allergies No Known Allergies Results Component Value Reference Range Notes CBC Fingerstick (in house) Reviewed date:09/12/2024 11:22:55 PM Interpretation: Performing Lab: Notes/Report: wbc 13.1 3.5 - 10 lym 14.3 15 - 50 mid 4.4 2 - 15 gran 81.3 35 - 80 rbc 4.94 3.5 - 5.5 hgb 13.1 11.5 - 16.5 hct 40.3 35 - 55 mcv 81.5 75 - 100 mch 26.5 25 - 35 mchc 32.5 31 - 38 plat 219 100 - 400 P-Amylase Reviewed date:09/16/2024 03:02:03 PM Interpretation:Normal Performing Lab: Notes/Report: Test performed by [facility] [address] [place] [address] , [place] [address] Mateo Green MD, Dramatic Arts Historian CLIA: [id number] Amylase 84 28-100 U/L P-Comprehensive Metabolic Pa jaylen (CMP) Reviewed date:09/16/2024 03:02:03 PM Interpretation:Chlor 95, Glu 144 Performing Lab: Notes/Report: Test performed by [facility] [address] [place] [address] , [place] [address] Mateo Green MD, Dramatic Arts Historian CLIA: [id number] Sodium 135 135-145 mmol/L Potassium 4.0 3.5-5.3 mmol/L Chloride 95 97-108 mmol/L CO2 24 22-32 mmol/L Glucose 144 65-99 mg/dL BUN 13 8-23 mg/dL Creatinine 1.20 0.70-1.30 mg/dL Calcium 9.3 8.6-10.4 mg/dL eGFR by Creatinine 68 >59 mL/min/1.73m2 Protein 7.7 6.0-8.3 g/dL Albumin 4.5 3.5-5.3 g/dL Alkaline Phosphatase 81 40-129 IU/L ALT (SGPT) 29 <5-55 IU/L AST (SGOT) 23 <5-46 IU/L Bilirubin, Total 0.5 <0.2-1.2 mg/dL A/G Ratio 1.4 1.1-2.5 P-Lipase Reviewed date:09/16/2024 03:02:03 PM Interpretation:Normal Performing Lab: Notes/Report: Test performed by [facility] [address] [place] [address] , [address], [place] [address] Mateo Green MD, Dramatic Arts Historian CLIA: [id number] Lipase 32.1 13.0-60.0 u/L REASON FOR VISIT coughing ,stomach hurting Medications Medication SIG (Take, Route, Frequency, Duration) Notes Start Date End Date Status metFORMIN HCl 500 MG 2 tab(s) orally 2 t imes a day; Duration: 90 days Active Lantus SoloStar 100 UNIT/ML 5 units Subcutaneous once a day Active FreeStyle Char 2 Sensor - Place 1 sensor on skin and change every 14 days; Duration: 28 days Active Atorvastatin Calcium 40 MG 1 tab(s) orally once a day; Duration: 90 days Active FreeStyle Char 2 [place] - Use to read glucose readings 12/29/2023 Active OneTouch Delica Plus [id number] - as directed two times a day as needed 03/06/2023 Active BD Pen Needle Short U/F 31G X 8 MM USE DIRECTED 1 PEN NEEDLE DAILY; Duration: 100 Acti ve FreeStyle Char 14 Day Sensor - as directed 11/04/2023 Active FreeStyle Char 14 Day [place] - as directed 11/04/2023 Active OneTouch Ultra - USE 1 STRIP TO CHECK GLUCOSE TWICE DAILY; Duration: 50 days Active Zithromax Z-Nicanor 250 MG 2 pills first day then one daily for 4 days orally as directed; Duration: 5 days 09/10/2024 Activ e GLUCOMETER 1 GLUCOMETER FINGERS TICK TEST 2 TIMES A DAY OR DIRECTED 05/21/2014 Active DELICA LANCETS 1 LANCET FINGERSTICK 2 TIMES A DAY OR DIRECTED 06/02/2017 Activ e Tamsulosin HCl 0.4 MG 1 capsule Orally Once a day Active oxyCODONE HCl 5 MG 1 tablet as needed O rally every 6 hrs Active Semglee (yfgn) 100 UNIT/ML INJECT 25 UNITS SUBCUTANEOUSLY TWICE DAILY; Duration: 24 Active Airsupra 90-80 MCG/ACT 2 puffs as needed Inhalation Six times a day 07/08/2024 Activ e Lisinopril 20 MG Take 1/2 (one-half) tablet by mouth twice daily; Duration: 90 Active Ozempic (2 MG/DOSE) 8 MG/3ML INJECT 2 MG SUBCUTANEOUSLY ONCE A WEEK; Duration: 28 Active Glimepiride 4 MG Take 1 tablet by sofia th twice daily; Duration: 90 Active Vital Signs Weight 218.6 lbs 09/10/2024 Blood pressure systolic 120 mm Hg 09/11/19 25 Blood pressure diastolic 72 mm Hg 025 Heart Rate 112 /min 09/10/2024 Height 69.50 in 09/10/2024 BMI 31.82 kg/m2 09/10/2024 Encounters Encounter Location Date Provider Diagnosis [facility] [address] [id number] 09/10/2024 Malini Julia Acute URI J06.9 and Epigastric pain R10.13 Assessments Encounter Date Diagnosis (ICD Code) Assessment Notes Treatment Notes Treatment Clinical Notes Section Notes 09/10/2024 Acute URI (ICD-10 - J06.9) 09/10/2024 Epigastric pain (ICD-10 - R10.13) Plan Of Treatment Medication Medication Name Sig Start Date Stop Date Notes Zithromax Z-Nicanor 250 MG 2 pills first day then one daily for 4 days orally as directed; Duration: 5 days 09/10/2024 Next Appt Details Follow Up: via phone to repo rt test results, Reason: Progress Notes * Ramana HOFFDOB:[birth year] (64 yo M)Acc No.[id number]:09/10/2024 Progress Notes Patient: L Ramana PAGAN Provider: ANH Goff :1960 A ge:63 Y S ex:Male Date:09/10/2024 Address:[place], [id number] Pcp:Axel Tellez Subjective: * Chief Complaints: * 1 . Coughing ,stomach hurting. * HPI: E NT/respiratory: 63 year old male presents with c/o cough P t sts he has these symptoms for 4 days and sts he thinks it is his sinuses. Pt sts he has been using Tylenol and sinus rinses but sts neither of those have helped. c/o nasal congestion. G astroenterology: c/o Abdominal Pain. * ROS: D ERMATOLOGY: no R [...] Hospitalization/Major Diagno stic Procedure: H MH-gallstones 2007, [facility] ER-left flank pain, hematuria 04/04/16, [facility] ER - Pain - Kidney Infection 08/14/2024. * Family History: F ather: 73 yrs, pancreatic cancer, CABG, diagnosed with Heart Disease, Diabetes.?Mother: 66 yrs, heart attack, diagnosed with Diabetes. [...] needed Orally every 6 hrs , Taking Tamsulosin HCl 0.4 MG Capsule 1 capsule Orally Once a day , Taking DELICA LANCETS 1 LANCET FINGERSTICK 2 TIMES A DAY OR DIRECTED , Taking GLUCOMETER 1 GLUCOMETER FINGERSTICK TEST 2 TIMES A DAY OR DIRECTED , Taking OneTouch Delica Plus Oyxemz63R - Miscellaneous as directed two times a day as needed , Taking OneTouch Ultra - Strip USE 1 STRIP TO CHECK GLUCOSE TWICE DAILY , Taking FreeStyle Char 14 Day [place] - Device as directed , Taking FreeStyle Char 14 Day Sensor - Miscellaneous as directed , Taking BD Pen Needle Short U/F 31G X 8 MM Miscellaneous USE DIRECTED 1 PEN NEEDLE DAILY , Taking FreeStyle Char 2 [place] - Device Use to read glucose readings [...] 2 MG SUBCUTANEOUSLY ONCE A WEEK , Taking Lisinopril 20 MG Tablet Take 1/2 (one-half) tablet by mouth twice daily , Medication List reviewed and reconciled with the patient * Allergies: N .K.D.A. Objective: * Vitals: W t: 218.6, Temp: 97.3, BP: 120/72, HR: 112, Nurse: [facility], Ht: 69.50, BMI:31.82. * Examination: G eneral Examination: General Appearance: N AD. H EENT: s clera and conjunctiva clear, PERRLA, TM's normal, translucent, nose congested, tender maxillary sinuses bilaterally. O ral cavity: n o lesions, mucosa moist and WNL, no erythema. N jesi: s upple, no lymphadenopathy. C hest: n ormal shape and expansion. H eart: R SR. L ungs: c lear to auscultation. A bdomen: b owel sounds present, soft, ttp in the epigastric area.? Assessment: * Assessment: 1. A cute URI - J06.9 (Primary) 2 . E pigastric pain - R10.13 ? Plan: * Treatment: Value Reference Range w bc 13.1 3.5 - 10 * l ym 14.3 15 - 50 * m id 4.4 2 - 15 * g ran 81.3 35 - 80 * r bc 4.94 3.5 - 5.5 * h gb 13.1 11.5 - 16.5 * h ct 40.3 35 - 55 * m cv 81.5 75 - 100 * m ch 26.5 25 - 35 * m chc 32.5 31 - 38 * p lat 219 100 - 400 * Jo-Ann Pina 09/10/2024 02:3 7:45 PM EDT > Provider reviewed results while patient in office. 2.?Epigastric pain?LAB: P-Amylase (Collection Date & Time - 09/10/2024 02:12 PM)?Normal* Value Reference Range A mylase 84 28-100 - U/L * Diana Higuera 09/16/2024 03: 01:55 PM EDT > See phone encounter ?LAB: P-Comprehensive Metabolic Panel (CMP) (Collection Date & Time - 09/10/2024 02:12 PM)?Chlor 95, Glu 144* Value Reference Range A /G Ratio 1.4 1.1-2.5 - * A lbumin 4.5 3.5-5.3 - g/dL * A lkaline Phosphatase 81 40-129 - IU/L * A LT (SGPT) 29 <5-55 - IU/L * A ST (SGOT) 23 <5-46 - IU/L * B ilirubin, Total 0.5 <0.2-1.2 - mg/dL * B UN 13 8-23 - mg/dL * C alcium 9.3 8.6-10.4 - mg/dL * C hloride 95 L 97-108 - mmol/L * C O2 24 22-32 - mmol/L * C reatinine 1.20 0.70-1.30 - mg/dL * G lucose 144 H 65-99 - mg/dL * P otassium 4.0 3.5-5.3 - mmol/L * S odium 135 135-145 - mmol/L * P rotein 7.7 6.0-8.3 - g/dL * e GFR by Creatinine 68 >59 - mL/min/1.73m2 * Diana Higuera 09/16/2024 03: 01:55 PM EDT > See phone encounter ?LAB: P-Lipase (Collection Date & Time - 09/10/2024 02:12 PM)?Normal* Value Reference Range L ipase 32.1 13.0-60.0 - u/L * Diana Higuera 09/16/2024 03: 01:55 PM EDT > See phone encounter * Procedure Codes: 8 5025 CBC WITH AUTO DIFF, 1036F TOBACCO NON-USER, G8783 BP SCR PRFRM RCMDD DEFIND SCR INTVL, G8752 MOST RECENT SYSTOLIC BP < 140MM HG, G8754 MOST RECENT DIASTOLIC BP < 90MM HG * Follow Up: v ia phone to report test results * Images: Billing Information: * Visit Code: 64843 Office Visit, Est Pt., Level 3. * Procedure Codes: 09802 CBC WITH AUTO DIFF. 1036F TOBACCO NON-USER. G8783 BP SCR PRFRM RCMDD DEFIND SCR INTVL. G8752 MOST RECENT SYSTOLIC BP < 140MM HG. G8754 MOST RECENT DIASTOLIC BP < 90MM HG. * Electronic signature of ANH Lima on 12/28/2024 at 10:40 AM EDT Sign off status: Pending * Provider: ANH Goff Date: 0 09/10/2024 Generated for Alyson ng/Faluis enriqueg/eTransmitting on: 0 12/28/2024 10:40 AM EDT History and Physical Notes * HPI (History of Present Illness) Category Sub-Category Detail Notes Category Not es ENT/respiratory cough Pt sts he has th zofia symptoms for 4 days and sts he thinks it is his sinuses. Pt sts he has been using Tylenol and sinus rinses but sts neither of those have helped nasal congestion Gastroenterology Abdominal Pain Examination Category Sub-Category Detail Notes Category Not es General Examination HEENT: sclera and c onjunctiva clear, PERRLA, TM's normal, translucent, nose congested, tender maxillary sinuses bilaterally Heart: RSR Lungs: clear to auscultatio n Abdomen: bowel sounds present , soft, ttp in the epigastric area General Appearance: NAD Neck: supple, no lymphaden opathy Oral cavity: no lesions, mucosa m oist and WNL, no erythema Chest: normal shape and exp ansion
[2024-12-27 13:32] LABS: Hematocrit 42.8 % (42.0-52.0); Hemoglobin 12.9 g/dL (14.1-18.0); Immature Granulocytes % 0.8 %; Mean Corpuscular HGB Conc 30.1 g/dL (31.8-35.4); Mean Corpuscular Hemoglobin 24.7 pg (27.0-31.2); Mean Corpuscular Volume 81.8 fl (80-94); Nucleated Red Blood Cells % 0 %; Platelet Count 316 K/mm3 (142-424); Red Blood Count 5.23 M/mm3 (4.60-6.20); Red Cell Distribution Width-SD 44.9 fL; White Blood Count 10.6 K/mm3 (4.8-10.8)
[2024-12-27 14:05] LABS: Anion Gap 18.9 mEq/L (5-15); Blood Urea Nitrogen 15 mg/dl (9-20); Calcium 9.4 mg/dl (8.4-10.2); Carbon Dioxide 22 mmol/L (22.0-30.0); Chloride 104 mmol/L (98-107); Cholesterol 90 mg/dl (140-200); Creatinine,Serum 1.00 mg/dl (0.66-1.25); Estimated Glomerular Filt Rate 75 ml/min (>60); GFR (African American) 91 ML/MIN (>60); Glucose 100 mg/dl (74-100); HDL Cholesterol 32 mg/dl (40-60); Potassium 4.9 mmoL/L (3.5-5.1); Sodium 140 mmol/L (136-145); Triglycerides 87 mg/dl (30-150)
[2024-12-27 14:23] LABS: Free T4 (Free Thyroxine) 1.17 ng/dl (0.78-2.19)
[2024-12-27 14:24] LABS: 25-OH Vitamin D, Total 39.4 ng/mL (30-100)
[2024-12-27 14:56] LABS: Vitamin B12 553 pg/mL (239-931)
[2024-12-27 17:12] LABS: Iron 72 ug/dL (49-181)
[2024-12-27 17:23] LABS: Total Iron Binding Capacity 437 ug/dL (261-462)
[2024-12-27 17:47] LABS: Thyroid Stimulating Hormone 2.27 uIU/mL (0.465-4.68)
[2024-12-27 17:51] LABS: Ferritin 13.3 ng/ml (17.9-464)
[2024-12-27 19:45] LABS: Hemoglobin A1C 8.0 % (4.0-6.0)
--- OUTSIDE RECORDS SUMMARY | 2024-12-28 10:40 | XMS_ITS | Clinical Summary ---
Author Organization [facility] Address [address] [place] [address] Care Team Providers Care Shaker Screen Operator Name Role Phone Jose R Tellez MD Primary Care Provider +1- [phone] Allergies Active Allergy Reactions Criticality Noted Date [...] (Lantus SoloStar) 100 UNIT/ML injection pen Active Encounters Date Type Department Care Team Description 11/17/2024 Telephone [place] [facility] [address] [place] [address] Earnestine Zarate from Last 3 Months Family History Medical History Relation Name Comments Cancer Father Jonas Smith Diabetes Father Jonas Smith Diabetes Mother Tiana Smith Coronary artery disease Other 1 Diabetes Other 2 Hyperlipidemia Other 3 Hypertension Other 4 Conversions - Other Other 5 FH: hear t attack Relation Name Status Comments Father Jonas Smith Mother Tiana Smith Other 1 Other [...] 09/29/2011 [facility]-Zoster Vaccines (1 of 2) 09/29/2011 [facility]-Depression Screening 10/07/2024 10/08/2023 [id number] Vaccine (2 - 20 25-26 season) 2024 01/10/2023 [facility]-Influenza Vaccine (#1) 2024 [facility]-RSV Vaccine: 60+ [...] Indicated MRSA 08/13/2023 08/13/2023 Insurance [place] [id number] [employer] Care Teams Shaker Screen Operator Relationship Specialty Start Date End Date Jose R Tellez MD [address] [place] [address] [place] [id number] PCP - General 08/11/20
--- OUTSIDE RECORDS SUMMARY | 2024-12-28 10:40 | XMS_ITS | Encounter Summary ---
Author Organization [facility] Address [address] [place] [address] Care Team Providers Care Milk Pickup Truck Driver Name Role Phone Jose R Tellez MD Primary Care Provider +1- [phone] Encounter Details Date Type Department Care Team (Late st Contact Info) Description 11/17/2024 Telephone [place] [facility] [address] [place] [id number] Earnestine Zarate Social History Tobacco Use Types Packs/Day Years Used Date Smoking Tobacco: Former Cigarettes 2 30 Smokeless Tobacco: Never Alcohol Use Standard Drinks/Week Comments No 0 (1 standard drink = 0.6 oz pur e alcohol) PHQ-2 Answer Date Recorded Patient Health Questionnaire-2 Score 0 10/08/2023 Sex and Gender Information Value Date Recorded Sex Assigned at Not on file Legal Sex Male 8:42 PM EDT Gender Identity Not on file Sexual Orientation Not on file documented as of this encounter Plan of Treatment Not on file documented as of this encounter Visit Diagnoses Not on filedocumented in this encounter Additional Health Concerns Infection Onset Date Last Indicated Resolved Time 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
--- OUTSIDE RECORDS SUMMARY | 2024-12-28 10:41 | XMS_ITS | Clinical Summary ---
Author Organization [facility] Address [address] [place] [address] Care Team Providers Care Primer Press Operator Name Role Phone Jose R Tellez [...] or training? Not on file Preferred Language Kittitian 12/05/2023 Sex and Gender Information Value Date [...] ANNUAL PHYSICAL 05/09/2022 HEPATITIS C SCREENING 05/09/2022 INFLUENZA VACCINE 10/29/2024 Goals Goal Patient Goal Type Associated Problems Recent Progress Patient-Stated? Author Autogenera anyi Goal Care Plan Autogenerated Problem No Sid, Maira, RegSched Rep Medical Devices Implanted Type Area Billing Associate Device Identifier Shelf Expiration Date Model / Serial / Lot Sut Fw #2 W/Tpr Ndl 04/01 Cir 38in 97cm 26.5mm Azam - [id number] Implanted:Qty: 1 on 12/19/2023 by Sai Alcazar MD at [facility] Implant Left: Shoulder ARTHREX 11/29/2027 [id number] / / [id number] Sut/Anch Biocomp Swivelock Sp 1.3mm/Suturetape 5.5x24.5mm - [id number] Implanted:Qty: 1 on 12/19/2023 by Sai Alcazar MD at [facility] Implant Left: Shoulder ARTHREX 04/30/2027 [id number] / / [id number] Sut/Anch Rot/Cuff Speedbridgefibertak W/Spanchr Knotlssanchr - [id number] Implanted:Qty: 1 on 12/19/2023 by Sai Alcazar MD at [facility] Implant Left: Shoulder ARTHREX [id number] B3 / / [id number] Additional Health Concerns Active Problems Noted Date Diagnosed Date Autogenerated Problem 10/15/2024 Infection Onset Date 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 Source: [facility]. 08/13/2023 Insurance Rita [place] [id number] [facility] Care Teams Primer Press Operator Relationship Specialty Start Date End Date Jose R Tellez MD [address] [facility] [address] [place] [address] PCP - General Family Medicine 12/05/23
--- OUTSIDE RECORDS SUMMARY | 2024-12-28 10:41 | XMS_ITS | Patient Health Record ---
[facility] Address [address] [place] [id number] Care Team Providers Care Account Installation Specialist Name Role Phone Rosalinda Axel Spencer Primary Care Provider Liss Roldan Unavailable [phone] Sanchez Dumonta Unavailable [phone] Allergies No Known Allergies Results Component Value Reference Range Notes Influenza Screen (in house) Reviewed date:02/23/2024 07:29:27 PM Interpretation:Negative Performing Lab: Notes/Report: Negative results neg CBC Fingerstick (in house) Reviewed date:02/23/2024 07:29:42 PM Interpretation: Performing Lab: Notes/Report: wbc 12.2 3.5 - 10 lym 23.6 15 - 50 mid 5.8 2 - 15 gran 70.6 35 - 80 rbc 5.32 3.5 - 5.5 hgb 14.0 11.5 - 16.5 hct 43.7 35 - 55 mcv 82.1 75 - 100 mch 26.4 25 - 35 mchc 32.2 31 - 38 plat 191 100 - 400 Covid test (in house) Reviewed date:02/23/2024 07:29:12 PM Interpretation:Negative Performing Lab: Notes/Report: Negative Result: neg Influenza Screen (in house) Reviewed date:06/25/2024 01:50:49 [...] Interpretation:neg Performing Lab: Notes/Report: neg Result: neg CBC Fingerstick (in house) Reviewed date:09/12/2024 11:22:55 [...] Interpretation:Normal Performing Lab: Notes/Report: Test performed by [facility] [address] [place] [address] , [address], [place] [address] Mateo Green MD, Salvager CLIA: [id number] Amylase 84 28-100 U/L P-Comprehensive Metabolic Pa jaylen (CMP) Reviewed date:09/16/2024 03:02:03 PM Interpretation:Chlor 95, Glu 144 Performing Lab: Notes/Report: Test performed by [facility] [address] [place] [address] , [address], [place] [address] Mateo Green MD, Salvager CLIA: [id number] Sodium 135 135-145 mmol/L Potassium 4.0 3.5-5.3 [...] Interpretation:Normal Performing Lab: Notes/Report: Test performed by [facility] [address] [place] [address] [place] [address] Mateo Green MD, Salvager CLIA: [id number] Lipase 32.1 13.0-60.0 u/L P-PSA Reviewed date:08/26/2024 08:30:24 AM Interpretation: Performing Lab: Notes/Report: Test performed by [facility] [address] [place] [address] [place] [address] Mateo Green MD, Salvager CLIA: [id number] PSA 2.59 <4.00 ng/mL Please note this is an ultrasensitive PSA assay with a lower limit of detection of 0.014 ng/mL. This test is performed by the [employer] ECLIA methodology. Values obtained with different assay methods or kits cannot be directly compared. P-Lipid Panel Reviewed date:08/26/2024 08:30:24 AM Interpretation: Performing Lab: Notes/Report: Test performed by [facility] [address] [place] [address] [place] [address] Mateo Green MD, Salvager CLIA: [id number] Cholesterol 116 <200 mg/dL Triglycerides 135 <150 [...] ATPIII guidelines LDL/HDL Ratio 1.9 <3.3 Ratio Test Date: 08/25/2024 LDL Results: 58 Units: mg/dL % Change: +9% LDL Cholesterol Patient History Test Date: 11/12/2023 LDL Results: 54 Units: mg/dL % Change: - Test Date: 05/28/2024 LDL Results: 53 Units: mg/dL % Change: -1% P-Comprehensive Metabolic Pa jaylen (CMP) Reviewed date:08/26/2024 08:30:24 AM Interpretation: Performing Lab: Notes/Report: Test performed by [facility] [address] [facility] , [address], [place] [address] Mateo Green MD, Salvager CLIA: [id number] Sodium 137 135-145 mmol/L Potassium 4.7 3.5-5.3 [...] 0.3 <0.2-1.2 mg/dL A/G Ratio 1.6 1.1-2.5 Glycohemoglobin A1c (in hous e) Reviewed date:08/26/2024 08:30:24 AM Interpretation:7.0% Performing Lab: Notes/Report: 7.0% glycohemoglobin 7.0% 5 - 6.5 % CBC Venipuncture (in house) Reviewed date:08/25/2024 04:11:07 [...] - 38 platlet 328 100 - 400 Urinalysis - Inhouse Reviewed date:08/25/2024 04:10:59 PM Interpretation: Performing Lab: Notes/Report: Color/Clarity yellow Leuk neg Nitrite neg Urobili 3.2 Protein neg pH 5.5 Blood neg Sp. Gr. 1.025 Ketone neg Bili neg Gluc neg CBC Fingerstick (in house) Reviewed date:06/18/2024 05:05:24 PM Interpretation: Performing Lab: Notes/Report: wbc 12.2 3.5 - 10 lym 25.4 15 - 50 mid 5.6 2 - 15 gran 69.0 35 - 80 rbc 4.82 3.5 - 5.5 hgb 13.0 11.5 - 16.5 hct 39.0 35 - 55 mcv 80.0 75 - 100 mch 26.9 25 - 35 mchc 33.3 31 - 38 plat 250 100 - 400 P-Microalbumin/Creatinine, R andom Urine Sample Reviewed date:06/02/2024 08:53:36 AM Interpretation:Normal Performing Lab: Notes/Report: Test performed by [facility] [address] [place] [address] [place] [address] Mateo Green MD, Salvager CLIA: [id number] Albumin/Creatinine Ratio, Urine 9 0-30 ug/mg Microalbumin, Urine, Random 1.6 Creatinine, Urine 172.7 P-Lipid Panel Reviewed date:06/02/2024 08:53:36 AM Interpretation:hdl 29 Performing Lab: Notes/Report: Test performed by [facility] [address] [place] [address] [place] [address] Mateo Green MD, Salvager CLIA: [id number] Cholesterol 111 <200 mg/dL Triglycerides 145 <150 mg/dL HDL Cholesterol 29 >39 mg/dL Cholesterol / HDL Ratio 3.83 0.00-4.99 Ratio Non-HDL Cholesterol 82 <130 mg/dL LDL Cholesterol (Calculation) 53 <130 mg/dL LDL Cholesterol Levels* Less than 100 mg/dL Optimal 100 to 129 mg/dL Near Optimal/ Above Optimal 130 to 159 mg/dL Borderline High 160 to 189 mg/dL High 190 mg/dL and above Very High * Categories as recommended by the 2004 ATPIII guidelines LDL/HDL Ratio 1.8 <3.3 Ratio LDL Cholesterol Patient History Test Date: 11/12/2023 LDL Results: 54 Units: mg/dL % Change: - Test Date: 05/28/2024 LDL Results: 53 Units: mg/dL % Change: -1% P-Comprehensive Metabolic Pa jaylen (CMP) Reviewed date:06/02/2024 08:53:36 AM Interpretation:co2- 21, gluc 103 Performing Lab: Notes/Report: Test performed by [facility], [address] , [address], [place] [address] Mateo Green MD, Salvager CLIA: [id number] Sodium 138 135-145 mmol/L Potassium 4.9 3.5-5.3 mmol/L Chloride 100 97-108 mmol/L CO2 21 22-32 mmol/L Glucose 103 65-99 mg/dL BUN 23 8-23 mg/dL Creatinine 1.09 0.70-1.30 mg/dL Calcium 10.2 8.6-10.4 mg/dL eGFR by Creatinine 76 >59 mL/min/1.73m2 Protein 7.8 6.0-8.3 g/dL Albumin 4.6 3.5-5.3 g/dL Alkaline Phosphatase 85 40-129 IU/L ALT (SGPT) 44 <5-55 IU/L AST (SGOT) 34 <5-46 IU/L Bilirubin, Total 0.4 <0.2-1.2 mg/dL A/G Ratio 1.4 1.1-2.5 Glycohemoglobin A1c (in hous e) Reviewed date:06/02/2024 08:53:36 AM Interpretation:7.4% Performing Lab: Notes/Report: 7.4% glycohemoglobin 7.5% 5 - 6.5 % CBC Venipuncture (in house) Reviewed date:06/02/2024 08:53:36 AM Interpretation:wbc 13 Performing Lab: Notes/Report: wbc 13 wbc 13.0 3.5 - 10 lymph 21.1 15 - 50 mid 4.7 2 - 15 gran 74.2 35 - 80 rbc 5.36 3.5 - 5.5 hgb 14.4 11.5 - 16.5 hct 43.1 35 - 55 mcv 80.4 75 - 100 mch 36.9 25 - 35 mchc 33.4 31 - 38 platlet 305 100 - 400 CBC Fingerstick (in house) Reviewed date:07/08/2024 02:54:48 [...] date:07/13/2024 12:33:07 PM Interpretation: Performing Lab: Notes/Report: CBC Fingerstick (in house) Reviewed date:06/10/2024 04:28:28 PM Interpretation:wbc 12.2 Performing Lab: Notes/Report: wbc 12.2 wbc 12.2 3.5 - 10 lym 21.8 15 - 50 mid 6.4 2 - 15 gran 71.8 35 - 80 rbc 4.92 3.5 - 5.5 hgb 13.3 11.5 - 16.5 hct 39.5 35 - 55 mcv 80.2 75 - 100 mch 27.1 25 - 35 mchc 33.8 31 - 38 plat 246 100 - 400 Urinalysis - Inhouse Reviewed date:08/18/2024 10:04:52 AM [...] Interpretation: Performing Lab: Notes/Report: Test performed by [facility] [address] [place] [address] , [address], [place] [address] Mateo Green MD, Salvager CLIA: [id number] Specimen Source Urine - Void Culture, Urine See Below Final Report : No growth Reason For Referral No Information Medications Medication SIG (Take, Route, Frequency, Duration) Notes Start Date End Date Status BD Pen Needle Short Ultrafine 31G X 8 MM USE 1 ONCE DAILY DIRECTED; Duration: 100 Active Ozempic (2 MG/DOSE) 8 MG/3ML 2 mg Subcutaneous once weekly; Duration: 28 days Active Lisinopril 20 MG Take 1/2 (one-half) tablet by mouth twice daily; Duration: 90 Active Lantus SoloStar 100 UNIT/ML INJECT 25 UNITS SUBCUTANEOUSLY TWICE DAILY; Duration: 24 Active FreeStyle Char 14 Day [place] - as directed 11/04/2023 Active FreeStyle Char 3 Plus Sensor - apply 1 sensor every 15 days; Duration: 30 days Active OneTouch Ultra - USE 1 STRIP TO CHECK GLUCOSE TWICE DAILY; Duration: 50 days Active Glimepiride 4 MG Take 1 tablet by sofia th twice daily; Duration: 90 Active oxyCODONE HCl 5 MG 1 tablet as needed O rally every 6 hrs Active FreeStyle Char 2 [place] - Use to read glucose readings 12/29/2023 Active metFORMIN HCl 500 MG 2 tab(s) orally 2 t imes a day; Duration: 90 days Active Zithromax Z-Nicanor 250 MG 2 pills first day then one daily for 4 days orally as directed; Duration: 5 days 09/10/2024 Activ e OneTouch Delica Plus [id number] - as directed two times a day as needed 03/06/2023 Active Atorvastatin Calcium 40 MG 1 tab(s) orally once a day; Duration: 90 days Active GLUCOMETER 1 GLUCOMETER FINGERS TICK TEST 2 TIMES A DAY OR DIRECTED 05/21/2014 Active Airsupra 90-80 MCG/ACT 2 puffs as needed Inhalation Six times a day 07/08/2024 Activ e DELICA LANCETS 1 LANCET FINGERSTICK 2 TIMES A DAY OR DIRECTED 06/02/2017 Activ e Tamsulosin HCl 0.4 MG 1 capsule Orally Once a day Active FreeStyle Char 2 Sensor - Place 1 sensor on skin and change every 14 days; Duration: 28 days Active Immunizations Vaccine Route Administration Date Status Comme nts Shingrix Unknown 11/27/2021 Administered Shingrix Unknown 02/12/2022 Administered COVID 19 Moderna Unknown 05/31/2020 Administered COVID 19 Moderna Unknown 06/28/2020 Administered COVID 19 Moderna Unknown 01/31/2021 Administered COVID 19 Moderna Unknown 07/12/2021 Administered Problems Problem Type SNOMED Code ICD Code Onset Dates Problem Status W/U Status Risk Notes Problem Hypertension (74539930) HTN (hypertension) (I10) Active confirmed Problem Hyperlipidemia (18708691) Hyperlipidemia (E78.5) Active confirmed Problem Diverticulitis (68611334) Diverticulitis (K57.92) Active confirmed Problem Obese class I (578894479256116) BMI 33.0-33.9,adult (Z68.33) Active confirmed Problem Leukocytosis (763470921) Elevated white blood cell count, unspecified (D72.829) Active confirmed Problem Hemicrania continua (133696788) Hemicrania continua (G44.51) Active confirmed Problem Venous thromboembolic disease (676031493) Acute embolism and thrombosis of unspecified deep veins of left lower extremity (I82.402) Active confirmed Problem Diabetes mellitus uncontrolled (022123962) Uncontrolled diabetes mellitus (E11.65) Active confirmed Problem Type II diabetes mellitus without complication (245241947) Type 2 diabetes mellitus without complication (E11.9) Active confirmed Problem Cervical disc disease (058332210) Cervical disc disease (M50.90) Active confirmed Problem Kidney stone (53686741) Kidney stone (N20.0) Active confirmed Problem Obstructive sleep apnea syndrome (44825191) JOSY (obstructive sleep apnea) (G47.33) Active confirmed Problem Body mass index 30.00 to 34.99 (614120126195018) BMI 31.0-31.9,adult (Z68.31) Active confirmed Problem Dyslipidemia (689706944) Dyslipidemia (E78.5) Active confirmed Problem Disorder of carotid artery (disorder) (500518113) Carotid artery disease without cerebral infarction (I77.9) Active confirmed Vital Signs Heart Rate 112 /min 09/10/2024 Blood pressure diastolic 72 mm Hg 09/10/2024 Height 69.50 in 09/10/2024 Blood pressure systolic 120 mm Hg 09/10/2024 Weight 218.6 lbs 09/10/2024 BMI 31.82 kg/m2 09/10/2024 Encounters Encounter Location Date Provider [facility] [address] [place], [place] [id number] 02/23/2024 Liss Roldan Bronchitis J40 [facility] [address] [facility] [address] [place], [place] [id number] 03/02/2024 R Tj Tellez Acute bronchitis J20 .9 [facility] [address] [place], [place] [id number] 05/28/2024 Malini Crowdy Type 2 diabetes mellitus without complication E11.9 ; HTN (hypertension) I10 and Hyperlipidemia E78.5 [facility] [place] [address] [place], [place] [id number] 06/08/2024 Malini Crowdy Elevated white blood cell count, unspecified D72.829 [facility] 0 [facility] [address] [place] [id number] 06/18/2024 Malini Crowdy Elevated white blood cell count, unspecified D72.829 and Diverticulitis K57.92 [facility] [address] [facility] [address] [place], [place] [id number] 06/25/2024 Malini Crowdy Bronchitis J40 [facility] [address] [facility] [address] [place], [place] [id number] 07/08/2024 Malini Crowdy Bronchitis J40 and B PA 31.0-31.9,adult Z68.31 [facility] [address] [place], [place] [id number] 08/18/2024 Malini Crowdy Kidney stone N20.0 a nd Hematuria R31.9 [facility] [address] [place], [place] [id number] 08/25/2024 Malini Crowdy Type 2 diabetes mellitus without complication E11.9 ; HTN (hypertension) I10 ; Hyperlipidemia E78.5 ; Kidney stone N20.0 ; Hematuria R31.9 ; Screening PSA (prostate specific antigen) Z12.5 and BMI 31.0-31.9,adult Z68.31 [facility] [address] [place], [place] [id number] 09/10/2024 Malini Crowdy Acute URI J06.9 and Epigastric pain R10.13 [facility] [address] [place], [place] [id number] 12/29/2023 R Tj Rosalinda [facility] [address] [place], [place] [id number] 12/29/2023 R Tj Rosalinda [facility] [address] [place] [id number] 12/31/2023 Malini Crowdy Type 2 diabetes mellitus without complication E11.9 [facility] [address] [place] [id number] 01/08/2024 R Tj Rosalinda HTN (hypertension) I 10 ; Hyperlipidemia E78.5 and Type 2 diabetes mellitus without complication E11.9 [facility] [address] [place] [id number] 01/19/2024 R Tj Rosalinda [facility] [address] [place], [place] [id number] 02/04/2024 Malini Crowdy Type 2 diabetes mellitus without complication E11.9 [facility] [address] [place] [id number] 02/13/2024 R Tj Rosalinda [facility] [address] [place] [id number] 03/04/2024 Malini Crowdy [facility] [address] [place] [id number] 03/15/2024 R Tj Rosalinda [facility] [address] [place] [id number] 03/16/2024 R Tj Rosalinda [facility] [address] [place] [id number] 05/07/2024 R Tj Rosalinda [facility] [address] [place] [id number] 05/24/2024 R Tj Rosalinda [facility] [address] [place] [id number] 06/02/2024 Malini Crowdy [facility] [address] [place] [id number] 06/10/2024 Malini Crowdy [facility] [address] [place] [id number] 07/12/2024 R Tj Rosalinda [facility] [address] [place] [id number] 08/26/2024 Malini Crowdy [facility] [address] [place] [id number] 09/02/2024 R Tj Rosalinda [facility] [address] [place] [id number] 09/16/2024 Malini Crowdy [facility] [address] [place], [place] [id number] 09/17/2024 R Tj Rosalinda [facility] [address] [place] [id number] 11/09/2024 R Tj Rosalinda Assessments Encounter Date Diagnosis (ICD Code) Assessment Notes Treatment Notes Treatment Clinical Notes Section Notes 12/31/2023 Type 2 diabetes mellitus without complication (ICD-10 - E11.9) 01/08/2024 HTN (hypertension) (ICD-10 - I10) 05/28/2024 Type 2 diabetes mellitus without complication (ICD-10 - E11.9) 06/08/2024 Elevated white blood cell count, unspecified (ICD-10 - D72.829) 06/18/2024 Diverticulitis (ICD-10 - K57.92) Improved 06/18/2024 Elevated white blood cell count, unspecified (ICD-10 - D72.829) WBC is still elevated but patient's abdominal pain has resolved. He is almost finished with abx. Will recheck in 1 week. 06/25/2024 Bronchitis (ICD-10 - J40) 07/08/2024 Bronchitis (ICD-10 - J40) Will stop albuterol and start on airsupra samples. 07/08/2024 BMI 31.0-31.9,adult (ICD-10 - Z68.31) 02/04/2024 Type 2 diabetes mellitus without complication (ICD-10 - E11.9) 02/23/2024 Bronchitis (ICD-10 - J40) fluids, rest, supportive measures for fever/symptom relief, OTC decongestant and/or cough medicine of choice 03/02/2024 Acute bronchitis (ICD-10 - J20.9) 05/28/2024 HTN (hypertension) (ICD-10 - I10) 08/18/2024 Kidney stone (ICD-10 - N20.0) 08/25/2024 HTN (hypertension) (ICD-10 - I10) 08/25/2024 Type 2 diabetes mellitus without complication (ICD-10 - E11.9) 09/10/2024 Epigastric pain (ICD-10 - R10.13) 09/10/2024 Acute URI (ICD-10 - J06.9) 08/25/2024 Hyperlipidemia (ICD-10 - E78.5) 05/28/2024 Hyperlipidemia (ICD-10 - E78.5) 08/18/2024 Hematuria (ICD-10 - R31.9) CT scan reviewed and did not show a pyelonephritis. He will continue abx. No culture was performed in the ER so will culture urine today. 01/08/2024 Hyperlipidemia (ICD-10 - E78.5) 01/08/2024 Type 2 diabetes mellitus without complication (ICD-10 - E11.9) 08/25/2024 Kidney stone (ICD-10 - N20.0) 08/25/2024 Hematuria (ICD-10 - R31.9) Has finished abx. Culture was negative. U/A today is normal. Will recheck a CBC in a few weeks. 08/25/2024 Screening PSA (prostate specific antigen) (ICD-10 - Z12.5) 08/25/2024 BMI 31.0-31.9,adult (ICD-10 - Z68.31) Plan Of Treatment Pending Test Test Name Order Date colonoscopy 09/02/2024 Insurance Providers Payer Name Payer Address Payer Phone Subscriber Number Group Number Insured Name Patient Relationship to Insured Coverage Start Date Coverage End Date [employer] [facility] [address] [place], [place] [id number] Ramana Smith Self - patient is the insured Medications Administered Medication Instructions Date of Administration Dosage Notes Dexamethasone 01/12/2013 1 mL Dexamethasone 06/28/2013 Dexamethasone 03/07/2014 1 mL Dexamethasone 08/06/2016 1 mL Dexamethasone 02/14/2017 1 mL Dexamethasone 02/17/2017 1 mL Dexamethasone 04/18/2017 1 mL Dexamethasone 01/05/2018 1 mL Dexamethasone 04/14/2018 1 mL Dexamethasone 06/23/2018 1 mL Dexamethasone 12/01/2018 1 mL Dexamethasone 03/09/2019 1 mL Dexamethasone 10/05/2020 1 mL Dexamethasone 07/12/2021 1 mL Dexamethasone 10/02/2021 1 mL Dexamethasone 05/14/2022 1 mL Dexamethasone 03/02/2024 1 mL Medical (General) History Medical History History ICD Code HTN GERD HLP Right leg DVT - 09/2014 Kidney stone Morris-diverticulosis by CT scan Type 2 DM - diagnosed 05/2014 Cervical disc disease - followed by Dr. Jamie FERRIS - Dr. Morales Surgical History Surgery Date(Month/Year) vasectomy Cholecystectomy Hospitalization History Reason Date(Month/Year) [facility] ER - Pain - Kidney Infection 025 [facility] ER-left flank pain, hematuria 04/04/16 [facility]-gallstones 2007
--- OUTSIDE RECORDS SUMMARY | 2024-12-28 10:41 | XMS_ITS | Clinical Summary ---
Author Organization [facility] Address [facility] [place] [address] Care Team Providers Care Operations Manager/Coordinator Name Role Phone Unavailable Primary Care Provider [...] therelease of HIV test results or diagnoses. [id number] Social History Tobacco Use Types Packs/Day Years Used Date Smoking Tobacco: Never Assessed Sex and Gender Information Value Date Recorded Sex Assigned at Not on file Legal Sex Male 11:27 PM EST Gender Identity Not on file Sexual Orientation Not on file Plan of Treatment Not on file
== END 2024-12-27 23:59 ==
LOC: LAB.DROPOF 12-28 10:32
PROVIDERS: PCP Nurse Practitioner Family; Visit Provider Nurse Practitioner Family
DX: E78.5 Hyperlipidemia, unspecified (principal); I10 Essential (primary) hypertension; E11.9 Type 2 diabetes mellitus without complications; G47.33 Obstructive sleep apnea (adult) (pediatric); D64.9 Anemia, unspecified; Z12.5 Encounter for screening for malignant neoplasm of prostate; Z13.21 Encounter for screening for nutritional disorder
CPT/HCPCS: 80048; 80061; 82043; 82306; 82570; 82607; 82728; 83036; 83540; 83550; 84439; 84443; 85025; G0103

== ENCOUNTER 2025-02-07 13:53 | Outpatient (CLI) | payer OTHER, SELFPAY ==
--- OUTSIDE RECORDS SUMMARY | 2025-02-07 14:01 | XMS_ITS | Clinical Summary ---
Author Organization [facility] Address [address] [place] [address] Care Team Providers Care Fry Cook Name Role Phone Jose R Tellez MD [...] or training? Not on file Preferred Language Latvian 12/05/2023 Sex and Gender Information Value Date [...] RegSched Rep Medical Devices Implanted Type Area Etl Application Developer Device Identifier Shelf Expiration Date Model / Serial / Lot Sut Fw #2 W/Tpr Ndl 04/01 Cir 38in 97cm 26.5mm Azam - [id number] Implanted:Qty: 1 on 12/19/2023 by Sai Alcazar MD at [facility] Implant Left: Shoulder ARTHREX 11/29/2027 [id number] / / [id number] Sut/Anch Biocomp Swivelock Sp 1.3mm/Suturetape 5.5x24.5mm - [id number] Implanted:Qty: 1 on 12/19/2023 by Sai Alcazar MD at [facility] Implant Left: Shoulder ARTHREX 04/30/2027 [id number] / / [id number] Sut/Anch Rot/Cuff Speedbridgefibertak W/Spanchr Knotlssanchr - [id number] Implanted:Qty: 1 on 12/19/2023 by Sai Alcazar MD at [facility] Implant Left: Shoulder ARTHREX [id number] B3 / / [id number] Additional Health Concerns Active Problems Noted Date Diagnosed Date Autogenerated Problem 10/15/2024 Infection Onset Date 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 Source: [facility]. 08/13/2023 Insurance Rita IRAHETA [place] [id number] [facility] Care Teams Fry Cook Relationship Specialty Start Date End Date Jose R Tellez MD [address] [facility] [address] [place] [address] PCP - General Family Medicine 12/05/23
--- OUTSIDE RECORDS SUMMARY | 2025-02-07 14:01 | XMS_ITS | Clinical Summary ---
Author Organization [facility] Address [facility][note 3][address] [place] [address] Care Team Providers Care Tariff Compiling Clerk Name Role Phone Unavailable Primary Care Provider [...] therelease of HIV test results or diagnoses. [id number] Social History Tobacco Use Types Packs/Day Years Used Date Smoking Tobacco: Never Assessed Sex and Gender Information Value Date Recorded Sex Assigned at Not on file Legal Sex Male 11:27 PM EST Gender Identity Not on file Sexual Orientation Not on file Plan of Treatment Not on file
--- OUTSIDE RECORDS SUMMARY | 2025-02-07 14:01 | XMS_ITS | Clinical Summary ---
Author Organization [facility] Address [address] [place] [address] Care Team Providers Care Warehouse Shift Supervisor Name Role Phone Jose R Tellez MD Primary Care Provider +1- [phone] Allergies Active Allergy Reactions Criticality Noted Date [...] Encounters Date Type Department Care Team Description 01/24/2025 Telephone [facility] Otolaryngology [address], [address] [place] [address] Earnestine Zarate 11/17/2024 Telephone [facility] Otolaryngology [address] [place] [address] Earnestine Zarate from Last 3 [...] of 2) 09/29/2011 [facility] Screening 10/07/2024 10/08/2023 [id number] Vaccine (2 - 20 25-26 season) 2024 [...] Date Last Indicated MRSA 08/13/2023 08/13/2023 Insurance [employer] Care Teams Warehouse Shift Supervisor Relationship Specialty Start Date End Date Jose R Tellez MD [address] [place] [address] PCP - General 08/11/20
--- OUTSIDE RECORDS SUMMARY | 2025-02-07 14:01 | XMS_ITS | Encounter Summary ---
Author Organization [facility] Address [address] [place] [address] Care Team Providers Care Mainframe Developer Name Role Phone Jose R Tellez MD Primary Care Provider +1- [phone] Encounter Details Date Type Department Care Team (Late st Contact Info) Description 01/24/2025 Telephone [facility] Otolaryngology [address] [place] [id number] Earnestine Zarate Social History Tobacco Use Types [...] documented as of this encounter Care Teams Mainframe Developer Relationship Specialty Start Date End Date Jose R Tellez MD [address] [place] [address] PCP - General 08/11/20 documented as of this encounter
[2025-02-07 15:31] LABS: Blood Urea Nitrogen 16 mg/dl (9-20); Creatinine,Serum 1.10 mg/dl (0.66-1.25); Estimated Glomerular Filt Rate 68 ml/min (>60); GFR (African American) 82 ML/MIN (>60)
[2025-02-08 08:13] LABS: PSA, Free 1.14 ng/mL
== END 2025-02-07 23:59 | disposition home or self-care (01) ==
LOC: LAB 13:54
PROVIDERS: PCP Nurse Practitioner Family; Visit Provider Urology
DX: N40.1 Benign prostatic hyperplasia with lower urinary tract symptoms (principal)
CPT/HCPCS: 36415; 82565; 84153; 84154; 84520

== ENCOUNTER 2025-02-28 13:09 | Outpatient (CLI) | payer OTHER, SELFPAY ==
--- OUTSIDE RECORDS SUMMARY | 2025-02-28 13:11 | XMS_ITS | Clinical Summary ---
Author Organization [facility] Address [address] [place] [address] Care Team Providers Care Icu Manager Name Role Phone Jose R Tellez MD [...] or training? Not on file Preferred Language Armenian 12/05/2023 Sex and Gender Information Value Date [...] HEPATITIS C SCREENING 05/09/2022 INFLUENZA VACCINE 10/29/2024 Medical Devices Implanted Type Area Regional Trainer Device Identifier Shelf Expiration Date Model / Serial / Lot Sut Fw #2 W/Tpr Ndl 04/01 Cir 38in 97cm 26.5mm Azam - [id number] Implanted:Qty: 1 on 12/19/2023 by Sai Alcazar MD at [facility] Implant Left: Shoulder ARTHREX 11/29/2027 [id number] / / [id number] Sut/Anch Biocomp Swivelock Sp 1.3mm/Suturetape 5.5x24.5mm - [id number] Implanted:Qty: 1 on 12/19/2023 by Sai Alcazar MD at [facility] Implant Left: Shoulder ARTHREX 04/30/2027 [id number] / / [id number] Sut/Anch Rot/Cuff Speedbridgefibertak W/Spanchr Knotlssanchr - [id number] Implanted:Qty: 1 on 12/19/2023 by Sai Alcazar MD at [facility] Implant Left: Shoulder ARTHREX [id number] B3 / / [id number] Additional Health Concerns Infection Onset Date 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 Source: Healthcare. [facility]2023 [facility] Care Teams Icu Manager Relationship Specialty Start Date End Date Jose R Tellez MD [facility] [address] [place] [address] PCP - General Family Medicine 12/05/23
--- OUTSIDE RECORDS SUMMARY | 2025-02-28 13:11 | XMS_ITS | Encounter Summary ---
Author Organization Healthcare Address [address] [place] [address] Care Team Providers Care Director Hedis Name Role Phone Jose R Tellez MD Primary Care Provider [phone] Encounter Details Date Type Department Care Team (Late st Contact Info) Description 01/24/2025 Telephone [facility] [address] [place] [id number] Earnestine Zarate Social History Tobacco Use Types [...] documented as of this encounter Care Teams Director Hedis Relationship Specialty Start Date End Date Jose R Tellez MD [address] [place] [address] PCP - General 08/11/20 documented as of this encounter
--- OUTSIDE RECORDS SUMMARY | 2025-02-28 13:11 | XMS_ITS | Clinical Summary ---
Author Organization Healthcare Address [address] [place] [address] Care Team Providers Care Alarm Field Technician Name Role Phone Jose R Tellez MD Primary Care Provider [phone]- [phone] Allergies Active Allergy Reactions Criticality Noted Date [...] Type Department Care Team Description 01/24/2025 Telephone [facility] [address] [place] [address] Earnestine Zarate from Last 3 [...] of 2) 09/29/2011 [facility]-Depression Screening 10/07/2024 10/08/2023 [id number] Vaccine (2 - 20 25-26 season) 2024 [...] Indicated MRSA 08/13/2023 08/13/2023 Insurance [place] [id number] [employer] Care Teams Alarm Field Technician Relationship Specialty Start Date End Date Jose R Tellez MD [address] [place] [address] [place] [address] PCP - General 08/11/20
[2025-03-01 10:10] LABS: PSA, Free 0.35 ng/mL
== END 2025-02-28 23:59 | disposition home or self-care (01) ==
LOC: LAB 13:09
PROVIDERS: PCP Nurse Practitioner Family; Visit Provider Urology
DX: R97.20 Elevated prostate specific antigen [PSA] (principal)
CPT/HCPCS: 36415; 84153; 84154

== ENCOUNTER 2025-03-28 10:18 | Outpatient (CLI) | payer OTHER, SELFPAY ==
--- OUTSIDE RECORDS SUMMARY | 2025-03-28 14:00 | XMS_ITS | Clinical Summary ---
Author Organization Healthcare Address [address] [place] [address] Care Team Providers Care Choir Director Name Role Phone Tj Tellez MD Primary Care Provider [phone] Allergies Active Allergy Reactions Criticality Noted Date [...] Type Department Care Team Description 01/24/2025 Telephone [facility] [address] [place] [address] Earnestine Zarate from Last 3 [...] [facility]-HIV Screening 1961 [facility]-Hepatitis C Screening 1961 [facility]-Infant/Child/Adol SDOH Screenings 1961 [facility]- SDOH Screenings 09/29/1979 [facility]-Adult SDOH Screenings 09/29/1979 [facility]-DTaP,Tdap,and Td Vaccine s (1 - Tdap) 1980 CT Colonography 2006 Colonoscopy 2006 FIT-DNA 2006 FIT 2006 FOBT 2006 Sigmoidoscopy 2006 [facility]-Colorectal Cancer Screening 2006 [facility]-Pneumococcal Vaccine: 50 + Years (1 of 1 - PCV) 09/29/2011 [facility]-Zoster Vaccines (1 of 2) 09/29/2011 [facility]-Depression Screening 10/07/2024 10/08/2023 [id number] Vaccine (2 - 20 25-26 season) 2024 01/10/2023 [facility]-Influenza Vaccine (#1) 2024 [facility]-RSV Vaccine: 60+ Years o r (1 - 1-dose 75+ series) 2036 [facility]-Obesity Intervention Completed 08/13/2023 HPV Vaccines (No Doses Required) Completed [facility]-HIB Vaccines Aged Out No longer e [...] Insurance [employer] Care Teams Choir Director Relationship Specialty Start Date End Date Tj Tellez MD [facility] [address] PCP - General 08/11/20
--- OUTSIDE RECORDS SUMMARY | 2025-03-28 14:00 | XMS_ITS | Clinical Summary ---
Author Organization [facility] Address [address] [place] [address] Care Team Providers Care Driver Medic Name Role Phone Jose R Tellez MD [...] or training? Not on file Preferred Language Albanian 12/05/2023 Sex and Gender Information Value Date [...] VACCINE 10/29/2024 Medical Devices Implanted Type Area Gradall Operator Device Identifier Shelf Expiration Date Model / Serial / Lot Sut Fw #2 W/Tpr Ndl 04/01 Cir 38in 97cm 26.5mm Azam - [id number] Implanted:Qty: 1 on 12/19/2023 by Sai Alcazar MD at [facility] Implant Left: Shoulder ARTHREX 11/29/2027 [id number] / / [id number] Sut/Anch Biocomp Swivelock Sp 1.3mm/Suturetape 5.5x24.5mm - [id number] Implanted:Qty: 1 on 12/19/2023 by Sai Alcazar MD at [facility] Implant Left: Shoulder ARTHREX 04/30/2027 [id number] / / [id number] Sut/Anch Rot/Cuff Speedbridgefibertak W/Spanchr Knotlssanchr - [id number] Implanted:Qty: 1 on 12/19/2023 by Sai Alcazar MD at [facility] Implant Left: Shoulder ARTHREX [id number] B3 / / [id number] Additional Health Concerns Infection Onset Date 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 Source: Healthcare. 08/13/2023 [facility] Care Teams Driver Medic Relationship Specialty Start Date End Date Jose R Tellez MD [facility] [address] [place] [address] PCP - General Family Medicine 12/05/23
--- OUTSIDE RECORDS SUMMARY | 2025-03-28 14:00 | XMS_ITS | Clinical Summary ---
Author Organization [facility] Address [facility] [place] [address] Care Team Providers Care Test Car Driver Name Role Phone Unavailable Primary Care Provider [...] therelease of HIV test results or diagnoses. [id number] Social History Tobacco Use Types Packs/Day Years Used Date Smoking Tobacco: Never Assessed Sex and Gender Information Value Date Recorded Sex Assigned at Not on file Legal Sex Male 11:27 PM EST Gender Identity Not on file Sexual Orientation Not on file Plan of Treatment Not on file
[2025-03-28 14:05] LABS: Hemoglobin A1C 7.6 % (4.0-6.0)
[2025-03-28 14:27] LABS: Anion Gap 16.3 mEq/L (5-15); Blood Urea Nitrogen 16 mg/dl (9-20); Calcium 9.1 mg/dl (8.4-10.2); Carbon Dioxide 23 mmol/L (22.0-30.0); Chloride 104 mmol/L (98-107); Creatinine,Serum 1.00 mg/dl (0.66-1.25); Estimated Glomerular Filt Rate 75 ml/min (>60); GFR (African American) 91 ML/MIN (>60); Glucose 87 mg/dl (74-100); Potassium 4.3 mmoL/L (3.5-5.1); Sodium 139 mmol/L (136-145)
[2025-03-28 15:41] LABS: Iron 48 ug/dL (49-181)
[2025-03-28 15:59] LABS: Total Iron Binding Capacity 460 ug/dL (261-462)
[2025-03-28 16:24] LABS: Ferritin 11.2 ng/ml (17.9-464)
== END 2025-03-28 23:59 | disposition home or self-care (01) ==
LOC: LAB.DROPOF 13:51
PROVIDERS: PCP Nurse Practitioner Family; Visit Provider Nurse Practitioner Family
DX: D64.9 Anemia, unspecified (principal); I10 Essential (primary) hypertension; E11.9 Type 2 diabetes mellitus without complications
CPT/HCPCS: 80048; 82728; 83036; 83540; 83550